=== PATIENT | female | born 1960 | race Caucasian/White ===

== ENCOUNTER → 2021-07-07 | Outpatient (CLI) | payer MEDICAID ==
--- NOTE | 2021-07-07 16:13 | RAD ---
Exam: US LEFT LOWER EXTREMITY ARTERIAL DUPLEX EVAL, US DPLX ARTR EXTREM LOWER BILAT History: Nonhealing ulcer follow-up left foot. Pain. Concern for arterial insufficiency. Comparison: None. Technique: Grayscale, color, and spectral Doppler ultrasound images of the left lower extremity arter ies. Pressures were determined using Doppler technique and ankle brachial indices were calculated. Findings: The left common femoral artery is patent with peak systolic velocity 163 cm/s and monophasic waveform . There is a focal stenosis in the left common femoral artery with peak systolic velocity of 457 cm/s . Distal to the stenosis there is dampened waveform with peak systolic velocity of 295 and 220 cm/s. Patent left deep femoral artery with peak systolic velocity 180 cm/s and dampened monophasic waveform . The left superficial femoral artery demonstrates dampened flow with peak systolic velocity 55 cm/s at the proximal 18 cm/s at the mid and 12 cm/s distally. Somewhat reconstitution of flow at the poplite al artery with 64 cm/s and 85 cm/s peak systolic flow. The posterior tibial, peroneal, anterior tibia l, dorsalis pedis and distal posterior tibial arteries all remain patent. Left brachial pressure: 177 mmHg Left ankle pressure (PT): 103 mmHg; 0.58 ABDI Left ankle pressure (DP): 98 mmHg; 0.55 ABDI Guidelines: ABDI >1.4: Calcified vessel 0.9 - 1.4: Normal 0.7 - 0.89: Mild PAD 0.51 - 0.69: Moderate PAD =< 0.5: Severe PAD Impression: 1. Severe stenosis of the left common femoral artery with peak systolic velocity of 457 cm/s and dim inished flow distally, however patent three-vessel runoff to the foot and ankle. 2. Dampened waveforms proximal to the left common femoral artery stenosis suggests possible addition al more proximal aortic or iliac stenosis. 3. Left ABDI of 0.58 consistent with moderate peripheral artery disease. Electronically signed by: Salvador Joseph MD (07/07/2021 4:11 PM) [id number]
== END ==
LOC: US 15:18
PROVIDERS: ATTEND Anesthesiology Hospice and Palliative Medicine
DX: I70.202 Unspecified atherosclerosis of native arteries of extremities, left leg (principal); E11.621 Type 2 diabetes mellitus with foot ulcer; L97.522 Non-pressure chronic ulcer of other part of left foot with fat layer exposed
CPT/HCPCS: 93922; 93926

== ENCOUNTER 2021-08-19 08:28 | Outpatient (CLI) | payer MEDICAID ==
[~2021-08-19] VITALS: Ht 175.3 cm; Wt 61.4 kg
[2021-08-19] VITALS (12 sets, daily range): BP systolic 150–191; BP diastolic 59–86
[2021-08-19] MEDS ORDERED: HEPARIN for ARTERIAL LINE 1,500 ML ONE (09:32)
[2021-08-19] MEDS ORDERED: LIDOCAINE 1% Multi-Dose 20 ML VIAL. ONE (09:32)
[2021-08-19] MEDS ORDERED: PANT40TA77 PO (10:06)
[2021-08-19] MEDS ORDERED: METF-658 PO (10:06)
[2021-08-19] MEDS ORDERED: SITA100T PO (10:06)
[2021-08-19] MEDS ORDERED: AMLO-187 PO (10:06)
[2021-08-19] MEDS ORDERED: GABA300C18 PO (10:06)
[2021-08-19] MEDS ORDERED: IODIXANOL 320 200 ML in NS 200 ML IART ONE (10:15)
[2021-08-19] MEDS ORDERED: LISI-130 PO (10:15)
[2021-08-19] MEDS ORDERED: TRAZ-118 PO (10:15)
[2021-08-19] MEDS ORDERED: DULO30CA2 PO (10:15)
[2021-08-19] MEDS ORDERED: CLOP75TA PO (10:15)
[2021-08-19] MEDS ORDERED: LIDOCAINE 1% PF 2 ML VIAL. ONE (10:23)
[2021-08-19] MEDS ORDERED: MIDAZOLAM HCL/PF 2 MG/2 ML VIAL. ONE (10:24)
[2021-08-19 10:25] LABS: CALCIUM 9.4 mg/dL (8.5-10.1); CREATININE 1.4 mg/dL (0.6-1.0); GFR 38.4; POTASSIUM 4.4 mmol/L (3.5-5.1)
[2021-08-19] MEDS ORDERED: VERAPAMIL 5 MG/2 ML VIAL. ONE (10:25)
[2021-08-19] MEDS ORDERED: NITROGLYCERIN 200 MCG/2 ML SYRINGE FOR CATH/VASC LAB. ONE (10:25)
[2021-08-19] MEDS ORDERED: HEPARIN for IV BOLUS 10,000 UNIT/10 ML VIAL. ONE (10:25)
[2021-08-19] MEDS ORDERED: fentaNYL PF VIAL 100 MCG/2 ML VIAL ONE (10:25)
[2021-08-19 10:26] LABS: HEMATOCRIT 37.7 % (36.0-47.0); HEMOGLOBIN 12.7 g/dL (12.0-15.5); RED BLOOD COUNT 4.34 x10^6/uL (3.50-5.40); RED CELL DISTRIBUTION WIDTH 15.3 % (11.5-14.5); WHITE BLOOD COUNT 9.1 x10^3/uL (4.0-11.0)
[2021-08-19] MEDS ORDERED: LIDOCAINE 1% PF 2 ML VIAL. INJ ONE (10:45)
[2021-08-19] MEDS ORDERED: IODIXANOL 320 MG/ML 100 ML VIAL. IART ONE (10:45)
[2021-08-19] MEDS ORDERED: VERAPAMIL 5 MG/2 ML VIAL. IART ONE (10:45)
[2021-08-19] MEDS ORDERED: fentaNYL PF VIAL 100 MCG/2 ML VIAL IV ONE (10:45)
[2021-08-19] MEDS ORDERED: NITROGLYCERIN 200 MCG/2 ML SYRINGE FOR CATH/VASC LAB. IART ONE (10:45)
[2021-08-19] MEDS ORDERED: HEPARIN for IV BOLUS 10,000 UNIT/10 ML VIAL. IART ONE (10:45)
[2021-08-19] MEDS ORDERED: MIDAZOLAM HCL/PF 2 MG/2 ML VIAL. IV ONE (10:45)
[2021-08-19 10:55] LABS: PROTHROMBIN TIME PATIENT 12.7 SEC (11.7-14.0)
[2021-08-19] MEDS ORDERED: CONTRAST GIVEN. MC PRN (11:00)
--- NOTE | 2021-08-19 13:45 | NUR ---
RIGHT RADIAL SITE WITHOUT BLEEDING OR HEMATOMA, ARM BOARD AND DRESSING REMOVED AND CHANGED, ARM BOARD REAPPLIED. PT TOLERATED WELL, NO COMPLICATIONS. VSS. DISCHARGE INSTRUCTIONS REVIEWED WITH PATIENT AND HER DAUGHTER, MOHAN.
--- NOTE | 2021-08-19 13:50 | CARD ---
MR#: [id number] Date of Study: 08/19/2021 Ordering Physician: BRIAN DOBSON, Referring Physician: BRIAN DOBSON, Tech: FRANKY MCKEON APPROVED REPORT Patient StatusCLI Business Systems Developer: FRANKY MCKEON Procedure(s) performed: MODERATE SEDATION TIME:37 MINUTES FLUORO TIME: 4.9 MIN DOSE: 33.1 GYCM2 CONTRAST: 70CC VISI Aortogram with bilateral femoral runoff HISTORY hypertension: dyslipidemia. INDICATION FOR PROCEDURE The indication(s) include : Left toe wound and elevated velocities on duplex ultrasound. PROCEDURE NARRATIVE Clinical information: 61-year-old woman who presents to the hospital for planned outpatient aortogram in the setting of a n onhealing left toe wound. She was referred to us from the wound care center. Patient has a prior hi story of right below-knee amputation. Procedure details: After appropriate informed consent the right wrist was prepped and draped in usual sterile fashion. Under 1% lidocaine local anesthesia a 6 [place] sheath was placed in the right radial artery. Next, a 5 [place] pigtail catheter was advanced to the mid abdominal aorta and diagnostic angiography was the n performed. Subsequently, a multipurpose catheter was advanced into the bilateral iliac vessels and bilateral lower extremity runoff was performed. At case completion, the catheters and sheaths were removed and hemostasis was achieved via a triple radial band. No acute complications. Findings: Aorta: Normal caliber vessel with moderate adventitial calcification and mild diffuse irregularities of up to 20% Bilateral renal arteries are patent. There is greater than 50% stenosis involving the left renal art manolo. Left common iliac artery has mild diffuse irregularities of up to 30% Left external iliac artery has a proximal 40% stenosis Left internal iliac artery has moderate diffuse disease Left common femoral artery has a 80% mid to distal stenosis Left SFA is proximally occluded Left profunda is widely patent and provides robust collaterals to the popliteal artery Left popliteal artery is patent without significant disease Left anterior tibial artery is occluded Left posterior tibial and peroneal vessels are patent and provide the dominant circulation to the josué t. The left dorsalis pedis artery is reconstituted via distal peroneal collaterals. Right common iliac artery has proximal 50% stenosis Right external iliac artery is occluded proximally Right internal iliac artery provides collaterals to the distal foot. There is diffuse disease involv ing the common femoral artery, superficial femoral artery and popliteal vessels. Conclusion 1. Severe bilateral lower extremity arterial disease 2. 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 Severe diffuse disease involving the left common femoral artery and SFA with distal reconstitutio n and two-vessel runoff below the knee Recommendations 1. Patient has prior right SFA endovascular treatment with stents which appear to be occluded, given long segment left SFA stenosis with common femoral artery involvement would consider vascular surger y evaluation. If she is deemed to be too high risk for surgical intervention could then plan for rad ial peripheral intervention with angioplasty and recanalization of the [employer]IDE [employer]INEER and SFA via dual radial an d pedal approaches. Signed by : Brian Dobson, Electronically Approved : 08/19/2021 13:50:24
--- NOTE | 2021-08-19 14:00 | NUR ---
RN AND PATIENT'S DAUGHTER, MOHAN, ASSISTED PATIENT WITH HER CLOTHING AND PUTTING HER RIGHT PROSTHESIS BACK ON. PT NEEDED FREQUENT REMINDERS TO NOT USE HER RIGHT ARM. PT ASSISTED TO THE BATHROOM, PT NEEDED TO SELF CATH HERSELF PRIOR TO DISCHARGE. PT'S DAUGHTER EXPRESSED CONCERN OF PT NEEDING ASSISTANCE TONIGHT, AT HOME AND ASKED IF SHE COULD BE ADMITTED FOR OBSERVATION, DUE TO THE PATIENT LIVING ALONE. DR. DOBSON NOTIFIED. PT'S DAUGHTER AGREED FOR THE PATIENT TO STAY WITH HER THIS EVENING FOR CLOSE OBSERVATION AND ASSISTANCE. ALL DISCHARGE INFORMATION REVIEWED AND QUESTIONS ANSWERED, EDUCATION MATERIAL PROVIDED ON MODERATE SEDATION AND RADIAL SITE CARE. PT DISCHARGED VIA WHEELCHAIR TO OUTPATIENT, WHERE HER DAUGHTER MOHAN PICKED HER UP IN HER PRIVATE VEHICLE.
== END 2021-08-19 15:00 | disposition home or self-care (01) ==
LOC: CCL 08:28
PROVIDERS: ATTEND Internal Medicine Cardiovascular Disease
DX: I73.9 Peripheral vascular disease, unspecified (principal); I10 Essential (primary) hypertension; K21.9 Gastro-esophageal reflux disease without esophagitis; M19.90 Unspecified osteoarthritis, unspecified site; E11.9 Type 2 diabetes mellitus without complications; F32.9 Major depressive disorder, single episode, unspecified; Z90.49 Acquired absence of other specified parts of digestive tract; Z98.890 Other specified postprocedural states; Z79.82 Long term (current) use of aspirin; Z79.899 Other long term (current) drug therapy; Z91.041 Radiographic dye allergy status
CPT/HCPCS: 36245; 36246; 36415; 75625; 75716; 76937; 80048; 85027; 85610; 99152; 99153; C1769; C1887; C1894; J1644; J2250; J3010; J3490; J7050; Q9967; J7030

== ENCOUNTER → 2021-08-27 | Outpatient (CLI) | payer MEDICAID ==
[2021-08-19 13:40] VITALS: BP 154/76
[~2021-08-27] MED LIST: AMLO-187 PO; CLOP75TA PO; DULO30CA2 PO; GABA300C18 PO; LISI-130 PO; METF-658 PO; PANT40TA77 PO; SITA100T PO; TRAZ-118 PO
== END ==
LOC: LAB 10:22
PROVIDERS: ATTEND Pediatrics
DX: Z01.812 Encounter for preprocedural laboratory examination (principal); Z20.822 Contact with and (suspected) exposure to COVID-19
CPT/HCPCS: U0003

== ENCOUNTER 2021-08-31 09:17 | Inpatient (IN) | payer MEDICAID ==
[~2021-08-31] VITALS: Ht 175.3 cm; Wt 58.6 kg
[~2021-08-31 09:17] MED LIST changes: +HEPARIN SODIUM 5,000 UNIT in IV NORMAL SALINE 500ML BAG 500 ML IRR ONE; +HYDROmorphone 2 MG/ML INJ. IVP PRN; +IV RINGERS,LACTATED 1000ML 1,000 ML IV SCH; +MORPHINE SULFATE 2 MG/ML INJ. IVP PRN; +PROCHLORPERAZINE 10 MG/2 ML VIAL. IVP PRN; +fentaNYL PF VIAL 100 MCG/2 ML VIAL IVP PRN
[2021-08-31] MEDS ORDERED: INSULIN LISPRO 100 UNIT/ML 3ML VIAL for OP,RR ONLY. SQ PRN (09:30)
[2021-08-31 09:54] VITALS: BP 124/63
[2021-08-31 10:08] LABS: BASO # 0.1 x10^3/uL (0.0-0.2); BASO % 1 % (0-3); EOS % 1 % (0-3); HEMATOCRIT 32.4 % (36.0-47.0); HEMOGLOBIN 10.7 g/dL (12.0-15.5); LYMPH # 1.4 x10^3/uL (1.0-4.8); LYMPH % 15 % (24-48); MEAN CORPUSCULAR HEMOGLOBIN 28 pg (25-35); MEAN CORPUSCULAR HGB CONC 33 g/dL (31-37); MEAN CORPUSCULAR VOLUME 86 fL (79-100); MONO # 0.6 x10^3/uL (0.0-1.1); MONO % 7 % (0-9); NEUT # 7.3 x10^3/uL (1.8-7.7); NEUT % 77 % (31-73); PLATELET COUNT 421 x10^3/uL (140-400); RED BLOOD COUNT 3.76 x10^6/uL (3.50-5.40); RED CELL DISTRIBUTION WIDTH 15.2 % (11.5-14.5); WHITE BLOOD COUNT 9.5 x10^3/uL (4.0-11.0)
[2021-08-31] MEDS ORDERED: fentaNYL PF VIAL 100 MCG/2 ML VIAL ONE (10:22)
[2021-08-31] MEDS ORDERED: DEXAMETHASONE SOD PHOS 4 MG/ML VIAL ONE (10:22)
[2021-08-31] MEDS ORDERED: ROCURONIUM 100 MG/10 ML VIAL. ONE (10:22)
[2021-08-31] MEDS ORDERED: PROPOFOL 10 MG/ML (20ML) VIAL. IV ONE (10:22)
[2021-08-31] MEDS ORDERED: GLYCOPYRROLATE 1 MG/5 ML VIAL. ONE (10:22)
[2021-08-31] MEDS ORDERED: ONDANSETRON PF 4 MG/2 ML VIAL. ONE (10:22)
[2021-08-31 10:25] LABS: CALCIUM 8.9 mg/dL (8.5-10.1); CREATININE 1.6 mg/dL (0.6-1.0); GFR 32.9; POTASSIUM 3.5 mmol/L (3.5-5.1)
[2021-08-31] MEDS ORDERED: LIDOCAINE 2% PF 5 ML VIAL. ONE (10:26)
[2021-08-31] MEDS ORDERED: MIDAZOLAM HCL/PF 2 MG/2 ML VIAL. ONE (10:46)
[2021-08-31] MEDS ORDERED: IOHEXOL 300 MG/ML 50 ML VIAL. ONE (10:49)
[2021-08-31] MEDS ORDERED: THROMBIN TOPICAL 5,000 UNIT VIAL. ONE (10:49)
[2021-08-31] MEDS ORDERED: SURGICEL FIBRILLAR 1X2 EACH. ONE (10:49)
[2021-08-31] MEDS ORDERED: GELATIN SPONGE SIZE 12-7MM SPONGE. ONE (10:49)
[2021-08-31] MEDS ORDERED: THROMBIN TOPICAL 20,000 UNIT SPRAY.SYRN KIT TP ONE (10:50)
[2021-08-31] MEDS ORDERED: PAPAVERINE 60 MG/2 ML VIAL. ONE (10:50)
[2021-08-31 10:51] LABS: PROTHROMBIN TIME PATIENT 13.8 SEC (11.7-14.0)
[2021-08-31] MEDS ORDERED: SUGAMMADEX SODIUM 200 MG/2 ML VIAL. IVP ONE (11:00)
[2021-08-31] MEDS ORDERED: PHENYLEPHRINE in 0.9% NACL PF 1 MG/10 ML SYRINGE. IV ONE (11:46)
[2021-08-31] MEDS ORDERED: HYDROmorphone 2 MG/ML INJ. ONE (13:02)
[2021-08-31] MEDS ORDERED: WATER FOR INJECTION,STERILE 10 ML IJ ONE (13:04)
[2021-08-31] MEDS ORDERED: PROTAMINE 50 MG/5 ML VIAL. IV ONE (15:06)
[2021-08-31] MEDS ORDERED: MORPHINE SULFATE 2 MG/ML INJ. IV PRN (16:15)
[2021-08-31] MEDS ORDERED: diphenhydrAMINE HCL 25 MG CAPSULE PO PRN (16:15)
[2021-08-31] MEDS ORDERED: oxyCODONE/APAP 5/325 1 TAB TABLET PO PRN ×2 (16:15→17:45)
[2021-08-31] MEDS ORDERED: ACETAMINOPHEN 325 MG TABLET. PO PRN (16:15)
[2021-08-31] MEDS ORDERED: 0.9 % SODIUM CHLORIDE 10 ML DISP.SYRIN. IV PRN (16:15)
[2021-08-31] MEDS ORDERED: NALOXONE 0.4 MG/ML VIAL. IV PRN (16:15)
[2021-08-31] MEDS ORDERED: PIP/TAZO PER PHARMACY MC PRN (16:15)
[2021-08-31] MEDS ORDERED: HYDROcodone/APAP 5/325MG 1 TAB TABLET PO PRN ×3 (16:15→17:45)
[2021-08-31] MEDS ORDERED: ONDANSETRON PF 4 MG/2 ML VIAL. IVP PRN (16:15)
[2021-08-31] MEDS ORDERED: IV NORMAL SALINE 1000ML BAG 1,000 ML IV SCH (16:15)
--- NOTE | 2021-08-31 16:40 | PDOC4 ---
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 Left common femoral artery endarterectomy 2. Left common femoral artery to tibioperoneal artery bypass using great saphenous vein in the non-reversed fashion 3. Left leg great saphenous vein harvest 4. Left first toe open ray amputation including resection of the metatarsal head Surgeon: Merle Diallo MD Tire Mold Engraver: Carmen TILLEY Anesthesia Type: general anesthesia Blood Loss: 200ml Specimans Obtained: right 1st toe and cultures Findings: right first toe open wound with wet gangrene and purulent drainage Complications: none Operative Note: The patient was brought to the operating room placed on table in a supine posi tion. She received general anesthesia and monitored throughout the case by the anesthesiologist. I used ultrasound and marked her left great saphenous vein. The left lower abdomen, left groin and left leg and foot circumferentially were prepped and draped in normal sterile fashion. We put the left foot in a wrap to keep the toe which was infected out of the keen. I made initially in a longitudinal incision to the left groin and, dissected down to the subcutaneous tissue down to the femoral vessels. The common femoral artery, superficial femoral artery and profunda artery were dissected out. The common femoral artery was severely calcified I dissected out proximally under the inguinal ligament to the distal external iliac artery where it was soft and had a strong palpable pulse within it. All side branches were looped with Vesseloops along with the proximal distal vessels. The profunda artery was very soft. I then dissected out the great saphenous vein in the medial groin and followed it proximally up to the saphenofemoral junction. I made a long incision down the medial thigh and medial calf dissecting out the great saphenous vein along the length of the leg. All side branches were ligated with silk ties clips and divided. In the medial calf we dissected down to the popliteal space. The popliteal artery was dissected out but it was heavily calcified in the distal segment and felt occluded if not nearly occluded. I continued dissection distally down to the tibial peroneal trunk and anterior tibial artery. The tibial peroneal trunk was heavily calcified in the proximal segment but distally it was very soft and the posterior tibial and peroneal arteries were dissected out and were soft in the proximal segment. His main runoff on his angiogram was the posterior tibial and peroneal vessels. I felt it best to do her bypass to the distal tibial peroneal trunk. We heparinized the patient with 6000 units of heparin. The proximal great saphenous vein just distal to the junction was clamped and divided distally I ligated with silk ties and clips and divided it. The proximal great saphenous vein stump was oversewn with 2 layers of 5-0 Prolene. The great saphenous vein was removed. I irrigated it with heparinized saline and it dilated nicely throughout the length of the vein. We ensured all side branches were ligated well with silk ties and clips. I then used the valvulotome and I lysed the valves throughout the length of the vein so we could use it in a nonreverse fashion. We then clamped the distal external iliac artery, profunda artery and superficial femoral artery. I performed a longitudinal arteriotomy in the distal common femoral artery just at the bifurcation. There was copious amounts of plaque within the common femoral artery. I performed an endarterectomy of the common femoral artery all the way up to the distal external iliac artery past the clamp removing dense cords of plaque. After doing this the artery was soft and had pulsatile inflow through the proximal vessel. I then transected the plaque in the superficial femoral artery which was chronically occluded and there was no backbleeding. I then removed plaque from the origin of the profunda artery distal to this it was widely patent with brisk backbleeding. I irrigated open wound with copious amounts of heparinized saline. The proximal end of the great saphenous vein was spatulated. I performed a end-to-side anastomosis with running 6-0 Prolene suture. After finishing the anastomosis I restored blood flow to the vein there was pulsatile blood flow through the end of the vein conduit. I explored the vein and again all side branches high and sure were well ligated and there is no bleeding. We used a Celia tunneler and tunneled through the deep subcutaneous tissue down to the calf. I then clamped the proximal and distal tibial peroneal trunk with bulldogs. I made a longitudinal arteriotomy in the anterior wall. I cut the vein to length and spatulated it. We performed an end-to-side anastomosis with running 7-0 Prolene suture. After finishing the anastomosis restored blood flow. There were strong dopplerable flow in the distal posterior tibial and peroneal vessels which was graft dependent and strong dopplerable flow at the foot. I then irrigated all of the open wounds with copious amounts of antibiotic irrigation. Hemostasis was gained throughout the wound and at the anastomosis. We placed fibular over the anastomosis in the groin and down in the calf. We then closed the deep subcutaneous tissue level with running 2-0 Vicryl suture in all incisions and closed the superficial subcutaneous tissue level with running 2-0 Vicryl suture. We closed the skin with running 4-0 Vicryl subcuticular suture. Sterile strips were placed along the length of the incision. And sterile dressings. I then moved to the left first toe. On the medial aspect of the first metatarsal head there was a large open wound with purulent drainage. The drainage was sent for culture. I performed elliptical incision around the first toe extending it laterally to encompass the open wound. I dissected down through subtendinous tissue, muscle and tendon down to the distal metatarsal bone. I transected the bone and remove the toe. The metatarsal head was completely excised I brought the metatarsal bone back within the wound with a rongeur back to good healthy bone. There was purulent drainage from the wound initially but I got back to good healthy tissue. There was good bleeding throughout the wound bed which was controlled with electrocautery. All tendons were removed. I did not close the wound because of the purulent drainage. I did irrigate with copious amounts of Irrisept irrigation followed by saline irrigation. When the wound was dry I packed it with antibiotic soaked gauze covered with an ABD pad and wrapped with a Kerlix and an Sylvester bandage. She tolerated the surgery with no immediate complications. Carmen TILLEY was scrubbed throughout the entire length of the case. MRELE DIALLO MD Aug 31, 2021 16:40
[2021-08-31] MEDS: IV NORMAL SALINE 1000ML BAG 1,000 ML IV SCH (17:05)
--- NOTE | 2021-08-31 17:44 | PDOC1 ---
History and Physical Date of Admission Date of Admission DATE: 08/31/21 TIME: 17:29 Identification/Chief Complaint Chief Complaint S/P left femoral endarterectomy Source Source: Chart review, Patient History of Present Illness History of Present Illness Patient 61-year-old female with past medical history of peripheral vascular disease, who is a vascular surgery patient of Dr. Diallo. She is status post left common femoral artery endarterectomy, left common femoral artery to tibial peroneal artery bypass using greater saphenous vein, left leg great saphenous vein harvest, and left first toe open ray amputation including resection of the metatarsal head. In the PACU she is still somewhat delirious and much history was obtained through chart review. We have been asked to admit the patient for further medical management. Past Medical History Past Medical History DM2, GERD, PVD Past Surgical History Past Surgical History Right BKA Family History Family History: Diabetes Social History Smoke: Quit ALCOHOL: none Drugs: None Current Medications Current Medications Current Medications Fentanyl Citrate (Fentanyl 2ml Vial) 25 mcg PRN Q5MIN PRN IVP MILD PAIN 1-3; Start 08/31/21 at 06:00; Stop 09/01/21 at 05:59 Fentanyl Citrate (Fentanyl 2ml Vial) 50 mcg PRN Q5MIN PRN IVP MODERATE PAIN 4- 6; Start 08/31/21 at 06:00; Stop 09/01/21 at 05:59 Morphine Sulfate (Morphine Sulfate) 1 mg PRN Q10MIN PRN IVP SEVERE PAIN 7-10; Start 08/31/21 at 06:00; Stop 09/01/21 at 05:59 Ringer's Solution 1,000 ml @ 30 mls/hr Q24H IV Last administered on 08/31/21at 10:05; Start 08/31/21 at 06:00; Stop 08/31/21 at 17:59 Hydromorphone HCl (Dilaudid) 0.5 mg PRN Q10MIN PRN IVP SEVERE PAIN 7-10, 2nd CHOICE; Start 08/31/21 at 06:00; Stop 09/01/21 at 05:59 Prochlorperazine Edisylate (Compazine) 5 mg PACU PRN PRN IVP NAUSEA, MRX1; Start 08/31/21 at 06:00; Stop 09/01/21 at 05:59 Heparin Sodium (Porcine) 5000 unit/Sodium Chloride 505 ml @ 505 mls/hr 1X ONCE IRR Last administered on 08/31/21at 12:09; Start 08/31/21 at 06:00; Stop 08/31/21 at 06:59; Status DC Cefazolin Sodium 1 gm/Sodium Chloride 500 ml @ 500 mls/hr 1X ONCE IRR Last administered on 08/31/21at 12:09; Start 08/31/21 at 06:00; Stop 08/31/21 at 06:59; Status DC Cefazolin Sodium/ Dextrose 50 ml @ 100 mls/hr 1X PREOP PRN IV PRIOR TO PROCEDURE; Start 08/31/21 at 06:00; Stop 08/31/21 at 18:00 Insulin Human Lispro (HumaLOG VIAL for OP,RR ONLY) 0-10 units PRN Q1HR PRN SQ P ER PROTOCOL Last administered on 08/31/21at 16:48; Start 08/31/21 at 09:30; Stop 09/01/21 at 09:29 Rocuronium Becker (Zemuron) 100 mg STK-MED ONCE .ROUTE ; Start 08/31/21 at 10:22; Stop 08/31/21 at 10:22; Status DC Fentanyl Citrate (Fentanyl 2ml Vial) 100 mcg STK-MED ONCE .ROUTE ; Start 08/31/21 at 10:22; Stop 08/31/21 at 10:22; Status DC Glycopyrrolate (Robinul) 1 mg STK-MED ONCE .ROUTE ; Start 08/31/21 at 10:22; Stop 08/31/21 at 10:22; Status DC Propofol (Diprivan) 200 mg STK-MED ONCE IV ; Start 08/31/21 at 10:22; Stop 08/31/21 at 10:22; Status DC Ondansetron HCl (Zofran) 4 mg STK-MED ONCE .ROUTE ; Start 08/31/21 at 10:22; St op 08/31/21 at 10:22; Status DC Dexamethasone Sodium Phosphate (Decadron) 4 mg STK-MED ONCE .ROUTE ; Start 08/31/21 at 10:22; Stop 08/31/21 at 10:22; Status DC Lidocaine HCl (Lidocaine Pf 2% Vial) 5 ml STK-MED ONCE .ROUTE ; Start 08/31/21 at 10:26; Stop 08/31/21 at 10:26; Status DC Midazolam HCl (Versed) 2 mg STK-MED ONCE .ROUTE ; Start 08/31/21 at 10:46; Stop 08/31/21 at 10:46; Status DC Sugammadex Sodium (Bridion) 200 mg 1X ONCE IVP ; Start 08/31/21 at 11:00; Stop 08/31/21 at 11:01; Status DC Gelatin (Gelfoam Size 12-7mm) 1 each STK-MED ONCE .ROUTE ; Start 08/31/21 at 10:49; Stop 08/31/21 at 10:49; Status DC Cellulose (Surgicel Fibrillar 1x2) 1 each STK-MED ONCE .ROUTE Last administered on 08/31/21at 14:19; Start 08/31/21 at 10:49; Stop 08/31/21 at 10:49; Status DC Iohexol (Omnipaque 300 Mg/ml) 50 ml STK-MED ONCE .ROUTE ; Start 08/31/21 at 10:49; Stop 08/31/21 at 10:50; Status DC Thrombin (Thrombin Topical) 5,000 unit STK-MED ONCE .ROUTE ; Start 08/31/21 at 10:49; Stop 08/31/21 at 10:50; Status DC Papaverine HCl 60 mg STK-MED ONCE .ROUTE ; Start 08/31/21 at 10:50; Stop 08/31/21 at 10:50; Status DC Thrombin 20,000 unit STK-MED ONCE TP ; Start 08/31/21 at 10:50; Stop 08/31/21 at 10:50; Status DC Phenylephrine HCl (PHENYLEPHRINE in 0.9% NACL PF) 1 mg STK-MED ONCE IV ; Start 08/31/21 at 11:46; Stop 08/31/21 at 11:47; Status DC Hydromorphone HCl (Dilaudid) 2 mg STK-MED ONCE .ROUTE ; Start 08/31/21 at 13:02; Stop 08/31/21 at 13:03; Status DC Sterile Water 10 ml @ As Directed STK-MED ONCE IJ ; Start 08/31/21 at 13:04; Stop 08/31/21 at 13:04; Status DC Protamine Sulfate (Protamine) 50 mg STK-MED ONCE IV ; Start 08/31/21 at 15:06; Stop 08/31/21 at 15:06; Status DC Diphenhydramine HCl (Benadryl) 25 mg PRN Q6HRS PRN PO ITCHING; Start 08/31/21 at 16:15 Info (Non-Icu Electrolyte Protocol) 1 ea DAILY MC ; Start 09/01/21 at 09:00 Sodium Chloride (Normal Saline Flush) 3 ml QSHIFT PRN IV AFTER MEDS AND BLOOD DRAWS; Start 08/31/21 at 16:15 Sodium Chloride 1,000 ml @ 75 mls/hr [id number] IV Last administered on 08/31/21at 17:05; Start 08/31/21 at 16:15 Acetaminophen/ Hydrocodone Bitart (Lortab 5/325) 1 tab PRN Q4HRS PRN PO MILD PAIN 1-3; Start 08/31/21 at 16:15 Acetaminophen/ Hydrocodone Bitart (Lortab 5/325) 2 tab PRN Q4HRS PRN PO MODERATE PAIN, SEVERE PAIN; Start 08/31/21 at 16:15 Oxycodone/ Acetaminophen (Percocet 5/325) 1 tab PRN Q4HRS PRN PO MILD PAIN, 2ND CHOICE; Start 08/31/21 at 16:15 Acetaminophen (Tylenol) 650 mg PRN Q6HRS PRN PO Headaches, Temp > 101.5F; Start 08/31/21 at 16:15 Morphine Sulfate (Morphine Sulfate) 2 mg PRN Q2HR PRN IV PAIN; Start 08/31/21 at 16:15 Naloxone HCl (Narcan) 0.4 mg PRN Q2MIN PRN IV SEE INSTRUCTIONS; Start 08/31/21 at 16:15 Sodium Chloride 1,000 ml @ 25 mls/hr Q24H IV ; Start 08/31/21 at 16:15 Docusate Sodium (Colace) 100 mg BID PO ; Start 08/31/21 at 21:00 Ondansetron HCl (Zofran) 4 mg PRN Q6HRS PRN IVP NAUESA, 1ST CHOICE; Start 08/31/21 at 16:15 Vancomycin HCl (Vanco Per Pharmacy) 1 each PRN DAILY PRN MC SEE COMMENTS; Start 08/31/21 at 16:15; Status UNV Piperacillin Sod/ Tazobactam Sod (Zosyn Per Pharmacy) 1 each PRN DAILY PRN MC SEE COMMENTS; Start 08/31/21 at 16:15; Status UNV Amlodipine Besylate (Norvasc) 10 mg DAILY PO ; Start 09/01/21 at 09:00 Clopidogrel Bisulfate (Plavix) 75 mg DAILY PO ; Start 09/01/21 at 09:00 Duloxetine HCl (Cymbalta) 30 mg DAILY PO ; Start 09/01/21 at 09:00 Gabapentin (Neurontin) 300 mg TID PO ; Start 08/31/21 at 21:00 Lisinopril (Prinivil) 40 mg DAILY PO ; Start 09/01/21 at 09:00 Pantoprazole Sodium (Protonix) 40 mg DAILYAC PO ; Start 09/01/21 at 07:30 Trazodone HCl (Desyrel) 50 mg HS PO ; Start 08/31/21 at 21:00 Linagliptin (Tradjenta) 5 mg DAILY PO ; Start 09/01/21 at 09:00 Active Scripts Active Reported Clopidogrel (Clopidogrel Bisulfate) 75 Mg Tablet 75 Mg PO DAILY Trazodone Hcl 50 Mg Tablet 50 Mg PO HS Cymbalta (Duloxetine Hcl) 30 Mg Capsule.dr 30 Mg PO DAILY Lisinopril 40 Mg Tablet 1 Tab PO DAILY Amlodipine Besylate 10 Mg Tablet 10 Mg PO DAILY Januvia (Sitagliptin Phosphate) 100 Mg Tablet 1 Tab PO DAILY Protonix (Pantoprazole Sodium) 40 Mg Tablet.dr 40 Mg PO DAILYAC Gabapentin (Gabapentin) 300 Mg Capsule 300 Mg PO TID Metformin Hcl Er (Metformin Hcl) 500 Mg Tab.er.24h 500 Mg PO DAILYWBKFT Allergies Allergies: Coded Allergies: iodine (Verified Allergy, Intermediate, Rash, 08/31/21) topical iodine ROS Review of System Unable to obtain due to patient clinical condition Physical Exam Physical Exam General: Alert, Oriented X1, Cooperative, No acute distress HEENT: PERRLA, EOMI Lungs: Clear to auscultation, Normal air movement Heart: RRR, no murmurs Cardiovascular: S1, S2 Abdomen: Normal bowel sounds, Soft, No tenderness Extremities: Right BKA. No clubbing, No cyanosis Skin: No rashes, No significant lesion Neuro: Normal speech, Normal tone, Sensation intact Psych/Mental Status: Mental status NL, Mood NL Vitals Vitals Vital Signs Date Time Temp Pulse Resp B/P (MAP) Pulse Ox O2 Delivery O2 Flow Rate FiO2 08/31/21 17:04 80 16 151/62 100 Room Air 08/31/21 16:49 10.0 08/31/21 16:21 97.9 97.9 Labs Labs Laboratory Tests Test 08/31/21 09:15 08/31/21 09:52 08/31/21 10:00 08/31/21 16:26 POC SARS CoV-2 Antigen Negative (NEGATIVE) White Blood Count 9.5 x10^3/uL (4.0-11.0) Red Blood Count 3.76 x10^6/uL (3.50-5.40) Hemoglobin 10.7 g/dL (12.0-15.5) Hematocrit 32.4 % (36.0-47.0) Mean Corpuscular Volume 86 fL (79-100) Mean Corpuscular Hemoglobin 28 pg (25-35) Mean Corpuscular Hemoglobin Concent 33 g/dL (31-37) Red Cell Distribution Width 15.2 % (11.5-14.5) Platelet Count 421 x10^3/uL (140-400) Neutrophils (%) (Auto) 77 % (31-73) Lymphocytes (%) (Auto) 15 % (24-48) Monocytes (%) (Auto) 7 % (0-9) Eosinophils (%) (Auto) 1 % (0-3) Basophils (%) (Auto) 1 % (0-3) Neutrophils # (Auto) 7.3 x10^3/uL (1.8-7.7) Lymphocytes # (Auto) 1.4 x10^3/uL (1.0-4.8) Monocytes # (Auto) 0.6 x10^3/uL (0.0-1.1) Eosinophils # (Auto) 0.0 x10^3/uL (0.0-0.7) Basophils # (Auto) 0.1 x10^3/uL (0.0-0.2) Sodium Level 140 mmol/L (136-145) Potassium Level 3.5 mmol/L (3.5-5.1) Chloride Level 103 mmol/L (98-107) Carbon Dioxide Level 28 mmol/L (21-32) Anion Gap 9 (6-14) Blood Urea Nitrogen 20 mg/dL (7-20) Creatinine 1.6 mg/dL (0.6-1.0) Estimated GFR (Cockcroft-Gault) 32.9 Glucose Level 188 mg/dL (70-99) Calcium Level 8.9 mg/dL (8.5-10.1) Prothrombin Time 13.8 SEC (11.7-14.0) Prothromb Time International Ratio 1.1 (0.8-1.1) Activated Partial Thromboplast Time 38 SEC (24-38) Glucose (Fingerstick) 187 mg/dL (70-99) 182 mg/dL (70-99) Laboratory Tests Test 08/31/21 09:15 08/31/21 09:52 08/31/21 10:00 08/31/21 16:26 POC SARS CoV-2 Antigen Negative (NEGATIVE) White Blood Count 9.5 x10^3/uL (4.0-11.0) Red Blood Count 3.76 x10^6/uL (3.50-5.40) Hemoglobin 10.7 g/dL (12.0-15.5) Hematocrit 32.4 % (36.0-47.0) Mean Corpuscular Volume 86 fL (79-100) Mean Corpuscular Hemoglobin 28 pg (25-35) Mean Corpuscular Hemoglobin Concent 33 g/dL (31-37) Red Cell Distribution Width 15.2 % (11.5-14.5) Platelet Count 421 x10^3/uL (140-400) Neutrophils (%) (Auto) 77 % (31-73) Lymphocytes (%) (Auto) 15 % (24-48) Monocytes (%) (Auto) 7 % (0-9) Eosinophils (%) (Auto) 1 % (0-3) Basophils (%) (Auto) 1 % (0-3) Neutrophils # (Auto) 7.3 x10^3/uL (1.8-7.7) Lymphocytes # (Auto) 1.4 x10^3/uL (1.0-4.8) Monocytes # (Auto) 0.6 x10^3/uL (0.0-1.1) Eosinophils # (Auto) 0.0 x10^3/uL (0.0-0.7) Basophils # (Auto) 0.1 x10^3/uL (0.0-0.2) Sodium Level 140 mmol/L (136-145) Potassium Level 3.5 mmol/L (3.5-5.1) Chloride Level 103 mmol/L (98-107) Carbon Dioxide Level 28 mmol/L (21-32) Anion Gap 9 (6-14) Blood Urea Nitrogen 20 mg/dL (7-20) Creatinine 1.6 mg/dL (0.6-1.0) Estimated GFR (Cockcroft-Gault) 32.9 Glucose Level 188 mg/dL (70-99) Calcium Level 8.9 mg/dL (8.5-10.1) Prothrombin Time 13.8 SEC (11.7-14.0) Prothromb Time International Ratio 1.1 (0.8-1.1) Activated Partial Thromboplast Time 38 SEC (24-38) Glucose (Fingerstick) 187 mg/dL (70-99) 182 mg/dL (70-99) VTE Prophylaxis Ordered VTE Prophylaxis Devices: No VTE Pharmacological Prophylaxi: Yes Assessment/Plan Assessment/Plan S/P femoral endarterectomy S/P left common femoral artery to tibial peroneal artery bypass using greater saphenous vein S/P left leg great saphenous vein harvest S/P left first toe open ray amputation including resection of the metatarsal head PVD DM2 GERD Plan: Vascular surgery following Will provide adequate pain management Basal insulin with medium dose sliding scale PT/OT Resume home medications FEN - ADA diet PPX - Heparin FULL CODE/surrogate decision-maker is her daughter (Evie Mckinley) Dispo - inpatient for above Justifications for Admission Other Justification STEFANI MIGUEL MD Aug 31, 2021 17:44
[2021-08-31] MEDS ORDERED: DEXTROSE 50% 25 GM / 50ML DISP.SYRIN. IV PRN (17:45)
[2021-08-31] MEDS ORDERED: MAG HYDROX/ALUMINUM HYD/SIMETH 30 ML ORAL.SUSP PO PRN (17:45)
[2021-08-31] MEDS ORDERED: IV DEXTROSE 5% 250 ML BAG. IV PRN (17:45)
[2021-08-31] MEDS ORDERED: CALCIUM CARBONATE 500 MG TAB.CHEW PO PRN (17:45)
[2021-08-31] MEDS ORDERED: oxyCODONE IR 5 MG TABLET PO PRN (17:45)
[2021-08-31] MEDS ORDERED: ZOLPIDEM 5 MG TABLET. PO PRN (17:45)
[2021-08-31] MEDS ORDERED: NICOTINE 14MG PATCH. TD PRN (18:00)
[2021-08-31 19:00] VITALS: BP 148/63
--- NOTE | 2021-08-31 19:04 | NUR ---
Consult called to Dr. Hayes,message left on voicemail.
[2021-08-31] MEDS: PIPERACILLIN/TAZOBACTAM 3.375 GM in IV NORMAL SALINE 50ML 50 ML IV SCH (19:15)
[2021-08-31] MEDS ORDERED: VANCOMYCIN 1.25 GM in IV NORMAL SALINE 250ML 250 ML IV ONE (20:00)
[2021-08-31] MEDS: VANCOMYCIN PER PHARMACY MC PRN ×2 (20:24→20:29)
--- NOTE | 2021-08-31 20:28 | NUR ---
Pharmacy Vancomycin Dosing Note S:Consulted to monitor and dose vancomycin started 08/31/21. O:BETH KEYS is a 61 year old F with Open toe amputation . Height: 5 feet, 9 inches Weight: 59.0 kg [place] Body Weight: 66.20 Adjusted Body Weight: 63.32 Dosing Weight: Actual Other Antibiotics: zosyn LABS: Last BUN: 20 Last Creatinine: 1.6 Creatinine Clearance: 35 mL/min Last WBC: 9.5 Last Procalcitonin: Tmax (past 24 hours): 98.1 Vancomycin Dosing: Loading Dose: 1250 mg x1 Dosing Weight: Actual Target Trough: 15-20 A: Based on: weight and renal function P: 1. Begin Vancomycin 1,000mg IV Q24H 2. Follow up Trough level on 09/02/21 at 2030 3. Pharmacy will continue to monitor, follow and adjust therapy as needed. Bozena Mckenna RPH, [id number]/31/[id number]
[2021-08-31] MEDS: GABAPENTIN 300 MG CAPSULE. PO SCH (21:37)
[2021-08-31] MEDS: traZODone 50 MG TABLET. PO SCH (21:37)
[2021-08-31] MEDS: DOCUSATE SODIUM 100 MG CAPSULE. PO SCH (21:37)
[2021-08-31] MEDS: INSULIN GLARGINE SYRINGE. SQ SCH (21:41)
[2021-08-31] MEDS: HYDROcodone/APAP 5/325MG 1 TAB TABLET PO PRN (21:49)
[2021-08-31 23:59] VITALS: BP 140/63
[2021-09-01] MEDS: PIPERACILLIN/TAZOBACTAM 3.375 GM in IV NORMAL SALINE 50ML 50 ML IV SCH ×4 (00:31→17:04)
[2021-09-01 03:26] VITALS: BP 109/56
[2021-09-01] MEDS: HYDROcodone/APAP 5/325MG 1 TAB TABLET PO PRN ×3 (04:46→19:57)
[2021-09-01] MEDS: IV NORMAL SALINE 1000ML BAG 1,000 ML IV SCH ×2 (05:35→10:05)
[2021-09-01] MEDS: HEPARIN for SUB-Q USE 5,000 UNIT/ML VIAL. SQ SCH ×3 (06:04→21:07)
[2021-09-01 07:00] VITALS: BP 123/57
[2021-09-01] MEDS: PANTOPRAZOLE 40 MG TABLET.DR. PO SCH (08:10)
[2021-09-01] MEDS: LINAGLIPTIN 5 MG TABLET PO SCH (08:10)
[2021-09-01] MEDS: GABAPENTIN 300 MG CAPSULE. PO SCH ×3 (08:10→21:03)
[2021-09-01] MEDS: DOCUSATE SODIUM 100 MG CAPSULE. PO SCH ×2 (08:10→21:04)
[2021-09-01] MEDS: DULoxetine HCL 30 MG CAPSULE.DR PO SCH (08:10)
[2021-09-01] MEDS: CLOPIDOGREL BISULFATE 75 MG TABLET PO SCH (08:11)
[2021-09-01] MEDS: ELECTROLYTE (NON-ICU) PROTOCOL. MC SCH (08:12)
[2021-09-01] MEDS: LISINOPRIL 20 MG TABLET PO SCH (08:12)
[2021-09-01] MEDS: INSULIN LISPRO 300 UNITS/3 ML VIAL. SQ SCH ×3 (08:18→17:07)
--- NOTE | 2021-09-01 09:46 | PDOC ---
Provider Note Date of Service: DATE: 09/01/21 TIME: 09:44 Provider Note Provider Note Vascular S: Patient is without complaints. Oh: Awake and alert Vital signs stable, afebrile Heart rate regular Nonlabored respirations left leg incision dressings are dry and intact. Dressing removed from left foot. First toe amputation site wound is clean no purulent drainage. Some mild active bleeding along skin edges. Biphasic Doppler posterior tib and monophasic dorsalis pedis. A/P: PAD with toe ulceration POD #1 1. Left common femoral artery endarterectomy 2. Left common femoral artery to tibioperoneal artery bypass using great saphenous vein in the non-reversed fashion 3. Left leg great saphenous vein harvest 4. Left first toe open ray amputation including resection of the metatarsal head Recommend wound VAC placement today. Antibiotics per infectious disease. Patient will need to offload her left forefoot. This may be challenging due to her right leg amputation. Will ask physical therapy to evaluate patient. Also recommend referral to rn social services for rehab placement. Discontinue IV fluids per orders Am lab pending. Justicifation of Admission Dx: Justifications for Admission: Justification of Admission Dx: Yes ANDRAE PINZON [employer] Sep 01, 2021 09:46
[2021-09-01 10:51] VITALS: BP 100/49
[2021-09-01] MEDS: VANCOMYCIN PER PHARMACY MC PRN (13:41)
[2021-09-01 14:39] LABS: BASO % 0 % (0-3); EOS % 0 % (0-3); HEMATOCRIT 26.7 % (36.0-47.0); HEMOGLOBIN 8.9 g/dL (12.0-15.5); LYMPH # 1.1 x10^3/uL (1.0-4.8); LYMPH % 12 % (24-48); MEAN CORPUSCULAR HEMOGLOBIN 29 pg (25-35); MEAN CORPUSCULAR HGB CONC 33 g/dL (31-37); MEAN CORPUSCULAR VOLUME 87 fL (79-100); MONO # 0.7 x10^3/uL (0.0-1.1); MONO % 7 % (0-9); NEUT # 7.4 x10^3/uL (1.8-7.7); NEUT % 80 % (31-73); PLATELET COUNT 362 x10^3/uL (140-400); RED BLOOD COUNT 3.09 x10^6/uL (3.50-5.40); RED CELL DISTRIBUTION WIDTH 15.1 % (11.5-14.5); WHITE BLOOD COUNT 9.3 x10^3/uL (4.0-11.0)
[2021-09-01 15:00] VITALS: BP 132/61
[2021-09-01 15:05] LABS: CALCIUM 8.1 mg/dL (8.5-10.1); CREATININE 1.6 mg/dL (0.6-1.0); GFR 32.9; MAGNESIUM 1.6 mg/dL (1.8-2.4); PHOSPHORUS 3.6 mg/dL (2.6-4.7); POTASSIUM 3.6 mmol/L (3.5-5.1)
--- NOTE | 2021-09-01 15:55 | NUR ---
Wound Care Wound Type/Assessment: Pt s/p open amputation of L great toe. Pt known to wound clinic for evaluation of same and had been referred to Vascular for further workup. Wound pictured and measured. Wound base is moist a nd pale pink with a tunnel at 10:00 and exposed bone. Wound margins well defined and intact. One piece of black foam applied to wound base; tracked to L anterior lower leg. Good seal achieved. No other wounds noted on head to toe inspection. Treatment Recommendations/Plan: Continue NPWT at 125mmHg continuous suction. Wound care will change on MW Education provided: Education provided r/t pressure ulcer prevention, wound healing, and diabetes management. Pt voices understanding. Offloading surface/device: Pt is independent with mobility Recommended Referrals/Tests: NA Discharge Recommendations for dressings: As above. May follow up in the wound clinic after DC
[2021-09-01] MEDS ORDERED: MAGNESIUM SULFATE 2GM 50 ML IV ONE (17:00)
[2021-09-01 19:21] VITALS: BP 104/51
[2021-09-01] MEDS ORDERED: VANCOMYCIN 1 GM in IV NORMAL SALINE 250ML 250 ML IV SCH (21:00)
[2021-09-01] MEDS: LACTOBACILLUS RHAMNOSUS GG 1 CAPSULE. PO SCH (21:03)
[2021-09-01] MEDS: traZODone 50 MG TABLET. PO SCH (21:03)
[2021-09-01] MEDS: INSULIN GLARGINE SYRINGE. SQ SCH (21:04)
[2021-09-01] MEDS: NICOTINE 21MG PATCH. TD PRN (21:04)
[2021-09-01 22:20] VITALS: BP 116/58
[2021-09-02] MEDS: PIPERACILLIN/TAZOBACTAM 3.375 GM in IV NORMAL SALINE 50ML 50 ML IV SCH ×3 (00:07→12:08)
[2021-09-02 02:03] VITALS: BP 117/58
[2021-09-02] MEDS: IV NORMAL SALINE 1000ML BAG 1,000 ML IV SCH ×2 (02:52→22:32)
[2021-09-02] MEDS: HYDROcodone/APAP 5/325MG 1 TAB TABLET PO PRN ×3 (02:52→12:13)
[2021-09-02] MEDS: PANTOPRAZOLE 40 MG TABLET.DR. PO SCH (05:45)
[2021-09-02] MEDS: HEPARIN for SUB-Q USE 5,000 UNIT/ML VIAL. SQ SCH ×3 (05:46→21:43)
[2021-09-02 07:00] VITALS: BP 131/60
[2021-09-02] MEDS: INSULIN LISPRO 300 UNITS/3 ML VIAL. SQ SCH ×3 (08:00→17:11)
--- NOTE | 2021-09-02 08:34 | CONS ---
DATE OF CONSULTATION: 09/01/2021 REQUESTING PHYSICIAN: Dr. Frazier. REASON FOR CONSULTATION: Open toe amputation. HISTORY OF PRESENT ILLNESS: This is a 61-year-old female who has severe peripheral artery disease and gangrene of the left first toe. The patient underwent a left common femoral artery endarterectomy, left common femoral artery, tibioperoneal artery bypass, left great saphenous vein harvest and left first toe ray amputation open to the metatarsal head. Intraoperative cultures showing gram positives and gram negatives, has not been finalized. The patient is receiving vancomycin and Zosyn. The patient denies any nausea, vomiting, diarrhea, chest pain, shortness of breath, abdominal pain, urinary symptoms or bowel symptoms. PAST MEDICAL HISTORY: Positive for diabetes mellitus, hypertension, peripheral arterial disease, gastroesophageal reflux disease, and right BKA. SOCIAL HISTORY: Positive for smoking until she came in. No alcohol use or drug use. ALLERGIES: LISTED ALLERGIC TO IODINE. CURRENT MEDICATIONS: Reviewed. REVIEW OF SYSTEMS: As per the HPI. All other systems reviewed and are negative. PHYSICAL EXAMINATION: GENERAL: Alert, oriented female, not in distress. VITAL SIGNS: Stable. Temperature 98.7, pulse 59, respirations 22, blood pressure 100/49. HEENT: Both pupils are round and reacting. No conjunctival lesion. No lesion in the mouth. NECK: Supple, no JVP, no lymphadenopathy. LUNGS: Clear. HEART: S1, S2, regular. ABDOMEN: Soft, nontender, no organomegaly. EXTREMITIES: No edema or cyanosis. SKIN: Unremarkable. NEUROLOGIC: The patient is neurologically alert, awake, and appropriate. No focal neurologic deficit. Her left foot amputation site looks healthy, clean; reviewed. LABORATORY DATA: White count is 9.5. BUN and creatinine is 20 and 1.6 and the culture as I mentioned. IMPRESSION: 1. Left big toe gangrene, status post open ray amputation. 2. Left peripheral arterial disease, status post left leg bypass. 3. Diabetes mellitus. 4. Hypertension. 5. Gastroesophageal reflux disease. RECOMMENDATIONS: We would not dose vancomycin since creatinine is actually abnormal. We will continue Zosyn and depending upon the culture, we may have to decide whether she will need daptomycin or not. Supportive care and will continue to follow. Thank you very much, Dr. Diallo and Dr. Frazier, for giving me opportunity to participate in this patient's care. SRD/ELIZABETH/MAYA DR: JAYDON/vi TID: [id number]
[2021-09-02] MEDS: CLOPIDOGREL BISULFATE 75 MG TABLET PO SCH (08:45)
[2021-09-02] MEDS: LACTOBACILLUS RHAMNOSUS GG 1 CAPSULE. PO SCH ×2 (08:46→21:41)
[2021-09-02] MEDS: LINAGLIPTIN 5 MG TABLET PO SCH (08:46)
[2021-09-02] MEDS: DULoxetine HCL 30 MG CAPSULE.DR PO SCH (08:46)
[2021-09-02] MEDS: GABAPENTIN 300 MG CAPSULE. PO SCH ×3 (08:46→21:41)
[2021-09-02] MEDS: LISINOPRIL 20 MG TABLET PO SCH (08:47)
[2021-09-02] MEDS: DOCUSATE SODIUM 100 MG CAPSULE. PO SCH ×2 (09:00→21:42)
[2021-09-02] MEDS: ELECTROLYTE (NON-ICU) PROTOCOL. MC SCH (09:00)
[2021-09-02 11:16] VITALS: BP 124/57
--- NOTE | 2021-09-02 12:28 | PDOC ---
Infectious Disease Note Subjective Subjective Patient is feeling okay ROS ROS No nausea vomiting diarrhea or pain Vital Sign Vital Signs Vital Signs Date Time Temp Pulse Resp B/P (MAP) Pulse Ox O2 Delivery O2 Flow Rate FiO2 09/02/21 12:13 96 Room Air 10.0 09/02/21 11:16 97.0 73 16 124/57 (79) 97.0 Physical Exam PHYSICAL EXAM GENERAL: Alert, oriented female, not in distress. VITAL SIGNS: Stable. HEENT: Both pupils are round and reacting. No conjunctival lesion. No lesion in the mouth. NECK: Supple, no JVP, no lymphadenopathy. LUNGS: Clear. HEART: S1, S2, regular. ABDOMEN: Soft, nontender, no organomegaly. EXTREMITIES: No edema or cyanosis. SKIN: Unremarkable. NEUROLOGIC: The patient is neurologically alert, awake, and appropriate. No focal neurologic deficit. Her left foot amputation site looks healthy, clean; reviewed. Labs Lab Laboratory Tests Test 09/01/21 14:10 09/01/21 15:35 09/01/21 16:58 09/01/21 20:44 White Blood Count 9.3 x10^3/uL (4.0-11.0) Red Blood Count 3.09 x10^6/uL (3.50-5.40) Hemoglobin 8.9 g/dL (12.0-15.5) Hematocrit 26.7 % (36.0-47.0) Mean Corpuscular Volume 87 fL (79-100) Mean Corpuscular Hemoglobin 29 pg (25-35) Mean Corpuscular Hemoglobin Concent 33 g/dL (31-37) Red Cell Distribution Width 15.1 % (11.5-14.5) Platelet Count 362 x10^3/uL (140-400) Neutrophils (%) (Auto) 80 % (31-73) Lymphocytes (%) (Auto) 12 % (24-48) Monocytes (%) (Auto) 7 % (0-9) Eosinophils (%) (Auto) 0 % (0-3) Basophils (%) (Auto) 0 % (0-3) Neutrophils # (Auto) 7.4 x10^3/uL (1.8-7.7) Lymphocytes # (Auto) 1.1 x10^3/uL (1.0-4.8) Monocytes # (Auto) 0.7 x10^3/uL (0.0-1.1) Eosinophils # (Auto) 0.0 x10^3/uL (0.0-0.7) Basophils # (Auto) 0.0 x10^3/uL (0.0-0.2) Sodium Level 141 mmol/L (136-145) Potassium Level 3.6 mmol/L (3.5-5.1) Chloride Level 107 mmol/L (98-107) Carbon Dioxide Level 26 mmol/L (21-32) Anion Gap 8 (6-14) Blood Urea Nitrogen 16 mg/dL (7-20) Creatinine 1.6 mg/dL (0.6-1.0) Estimated GFR (Cockcroft-Gault) 32.9 Glucose Level 195 mg/dL (70-99) Calcium Level 8.1 mg/dL (8.5-10.1) Phosphorus Level 3.6 mg/dL (2.6-4.7) Magnesium Level 1.6 mg/dL (1.8-2.4) Glucose (Fingerstick) 208 mg/dL (70-99) 253 mg/dL (70-99) 223 mg/dL (70-99) Test 09/02/21 07:41 09/02/21 11:54 Glucose (Fingerstick) 73 mg/dL (70-99) 149 mg/dL (70-99) Micro GRAM STAIN-AER DESEAN Final PMNS (WBCS): RARE SQUAMOUS EPI CELL: RARE GRAM NEGATIVE RODS: MANY GRAM POS COCCI: [place] [address] director compliance: Lanny Wong MD CULTURE ANAEROBIC/AEROBIC Preliminary MIXED AEROBIC KATHLEEN ISOLATED INCLUDING: MANY STAPHYLOCOCCUS AUREUS MANY ENTEROCOCCUS FAECALIS MANY STREPTOCOCCUS ANGINOSUS RARE ACINETOBACTER PITTII [place] [address] director compliance: Lanny Wong MD Objective Assessment IMPRESSION: 1. Left big toe gangrene, status post open ray amputation. 2. Left peripheral arterial disease, status post left leg bypass. 3. Diabetes mellitus. 4. Hypertension. 5. Gastroesophageal reflux disease. Plan Plan of Care JEFFREY Bonilla MD Sep 02, 2021 12:28
[2021-09-02 15:00] VITALS: BP 118/59
[2021-09-02] MEDS ORDERED: TIGECYCLINE 100 MG in IV DEXTROSE 5% 100ML 100 ML IV ONE (15:00)
--- NOTE | 2021-09-02 15:18 | NUR ---
SS following for discharge planning. SS reviewed pt chart and discussed with pt RN. Pt is from home and is currently on room air. COVID19 negative. Pt on IV Tigecycline. PT/OT recommended acute rehabilitation. SS met with pt and discussed discharge planning and acute rehabilitation. Pt requesting to go to [facility], ; fax [phone], due to previous experience. Referral sent to [facility] as requested. SS will continue to follow for discharge planning.
--- NOTE | 2021-09-02 16:09 | PDOC ---
[employer] PROGRESS NOTE Date of Service DOS: DATE: 09/02/21 TIME: 16:02 Chief Complaint Chief Complaint S/P femoral endarterectomy S/P left common femoral artery to tibial peroneal artery bypass using greater saphenous vein S/P left leg great saphenous vein harvest S/P left first toe open ray amputation including resection of the metatarsal head PVD DM2 GERD History of Present Illness History of Present Illness 09/02: Patient seen and evaluated bedside. S/P femoral endarterectomy and left first toe amputation. Wound VAC in place to left foot. States her pain increases at night. Reminded patient that she has higher strength options for pain management if she needs them. Wound cultures growing staph, Enterococcus, strep, and actinobacter. We will continue to follow cultures for sensitivities. Will order oral iron. Discussed with RN. Vitals/I&O Vitals/I&O: Vital Signs Date Time Temp Pulse Resp B/P (MAP) Pulse Ox O2 Delivery O2 Flow Rate FiO2 09/02/21 13:41 96 Room Air 10.0 09/02/21 11:16 97.0 73 16 124/57 (79) 97.0 I & O 09/01/21 09/01/21 09/02/21 15:00 23:00 07:00 Intake Total 1100 ml 0 ml Output Total 600 ml Balance 1100 ml -600 ml Physical Exam Physical Exam: GENERAL: Alert, oriented female, not in distress. VITAL SIGNS: Stable. HEENT: Both pupils are round and reacting. No conjunctival lesion. No lesion in the mouth. NECK: Supple, no JVP, no lymphadenopathy. LUNGS: Clear. HEART: S1, S2, regular. ABDOMEN: Soft, nontender, no organomegaly. EXTREMITIES: No edema or cyanosis. SKIN: Unremarkable. NEUROLOGIC: The patient is neurologically alert, awake, and appropriate. No focal neurologic deficit. Her left foot amputation site looks healthy, clean; reviewed. General: Alert, Oriented X3, Cooperative, No acute distress Heart: Regular rate Lungs: Clear Extremities: No cyanosis, Other (S/P left first toe amputation with wound VAC in place) Labs Labs: Laboratory Tests Test 09/01/21 16:58 09/01/21 20:44 09/02/21 07:41 09/02/21 11:54 Glucose (Fingerstick) 253 mg/dL (70-99) 223 mg/dL (70-99) 73 mg/dL (70-99) 149 mg/dL (70-99) Comment Review of Relevant I have reviewed the following items ted (where applicable) has been applied. Medications: Current Medications Medications (Trade) Dose Ordered Sig/Primitivo Route PRN Reason Start Time Stop Time Status Last Admin Dose Admin Lactobacillus Rhamnosus (Culturelle) 1 cap BID PO 09/01/21 21:00 09/02/21 08:46 Magnesium Sulfate 50 ml @ 25 mls/hr 1X ONCE IV 09/01/21 17:00 09/01/21 18:59 DC 09/01/21 17:30 Tigecycline 100 mg/Dextrose 100 ml @ 200 mls/hr 1X ONCE IV 09/02/21 15:00 09/02/21 15:29 DC 09/02/21 15:48 Justifications for Admission Other Justification STEFANI MIGUEL MD Sep 02, 2021 16:09
--- NOTE | 2021-09-02 16:35 | PDOC ---
PROGRESS NOTES Date of Service DATE: 09/02/21 TIME: 16:31 Subjective Subjective Pt seen and examined in her room today She is POD #2 s/p left fem - pop byass and great toe amp / debridement with wound VAC She has no significant c/o She denies any pain / paresthesias / weakness Overall in good spirits doing well no c/o Objective Objective Vital Signs Date Time Temp Pulse Resp B/P (MAP) Pulse Ox O2 Delivery O2 Flow Rate FiO2 09/02/21 15:00 98.1 68 17 118/59 (78) 98 Room Air 98.1 09/02/21 13:41 10.0 Intake and Output 09/02/21 07:00 Intake Total 1100 ml Output Total 600 ml Balance 500 ml Intake Oral 200 ml IV Total 900 ml Output Urine Total 600 ml Physical Exam Physical Exam left leg incision c/d/i -- dressing taken down no hematoma excellent PT and DP signals, 1+ palpable PT pulse wound VAC looks good Chest CTA abdomen soft, non-tender Plan Plan of Care doing well s/p left fem =-pop bypass VAC change tomorrow (left foot) and if looks good should be ready to go to rehab Comment Review of Relevant I have reviewed the following items ted (where applicable) has been applied. Labs Laboratory Tests Test 08/31/21 20:43 09/01/21 08:16 09/01/21 12:07 09/01/21 14:10 Glucose (Fingerstick) 265 mg/dL (70-99) 190 mg/dL (70-99) 127 mg/dL (70-99) White Blood Count 9.3 x10^3/uL (4.0-11.0) Red Blood Count 3.09 x10^6/uL (3.50-5.40) Hemoglobin 8.9 g/dL (12.0-15.5) Hematocrit 26.7 % (36.0-47.0) Mean Corpuscular Volume 87 fL (79-100) Mean Corpuscular Hemoglobin 29 pg (25-35) Mean Corpuscular Hemoglobin Concent 33 g/dL (31-37) Red Cell Distribution Width 15.1 % (11.5-14.5) Platelet Count 362 x10^3/uL (140-400) Neutrophils (%) (Auto) 80 % (31-73) Lymphocytes (%) (Auto) 12 % (24-48) Monocytes (%) (Auto) 7 % (0-9) Eosinophils (%) (Auto) 0 % (0-3) Basophils (%) (Auto) 0 % (0-3) Neutrophils # (Auto) 7.4 x10^3/uL (1.8-7.7) Lymphocytes # (Auto) 1.1 x10^3/uL (1.0-4.8) Monocytes # (Auto) 0.7 x10^3/uL (0.0-1.1) Eosinophils # (Auto) 0.0 x10^3/uL (0.0-0.7) Basophils # (Auto) 0.0 x10^3/uL (0.0-0.2) Sodium Level 141 mmol/L (136-145) Potassium Level 3.6 mmol/L (3.5-5.1) Chloride Level 107 mmol/L (98-107) Carbon Dioxide Level 26 mmol/L (21-32) Anion Gap 8 (6-14) Blood Urea Nitrogen 16 mg/dL (7-20) Creatinine 1.6 mg/dL (0.6-1.0) Estimated GFR (Cockcroft-Gault) 32.9 Glucose Level 195 mg/dL (70-99) Calcium Level 8.1 mg/dL (8.5-10.1) Phosphorus Level 3.6 mg/dL (2.6-4.7) Magnesium Level 1.6 mg/dL (1.8-2.4) Test 09/01/21 15:35 09/01/21 16:58 09/01/21 20:44 09/02/21 07:41 Glucose (Fingerstick) 208 mg/dL (70-99) 253 mg/dL (70-99) 223 mg/dL (70-99) 73 mg/dL (70-99) Test 09/02/21 11:54 09/02/21 16:22 Glucose (Fingerstick) 149 mg/dL (70-99) 211 mg/dL (70-99) Laboratory Tests Test 09/01/21 16:58 09/01/21 20:44 09/02/21 07:41 09/02/21 11:54 Glucose (Fingerstick) 253 mg/dL (70-99) 223 mg/dL (70-99) 73 mg/dL (70-99) 149 mg/dL (70-99) Test 09/02/21 16:22 Glucose (Fingerstick) 211 mg/dL (70-99) Microbiology 08/31/21 Gram Stain - Final, Resulted 08/31/21 Aerobic and Anaerobic Culture - Preliminary, Resulted Enterococcus Faecalis Staphylococcus Aureus Medications Current Medications Fentanyl Citrate (Fentanyl 2ml Vial) 25 mcg PRN Q5MIN PRN IVP MILD PAIN 1-3; Start 08/31/21 at 06:00; Stop 09/01/21 at 05:59; Status DC Fentanyl Citrate (Fentanyl 2ml Vial) 50 mcg PRN Q5MIN PRN IVP MODERATE PAIN 4- 6; Start 08/31/21 at 06:00; Stop 09/01/21 at 05:59; Status DC Morphine Sulfate (Morphine Sulfate) 1 mg PRN Q10MIN PRN IVP SEVERE PAIN 7-10; Start 08/31/21 at 06:00; Stop 09/01/21 at 05:59; Status DC Ringer's Solution 1,000 ml @ 30 mls/hr Q24H IV Last administered on 08/31/21at 10:05; Start 08/31/21 at 06:00; Stop 08/31/21 at 17:59; Status DC Hydromorphone HCl (Dilaudid) 0.5 mg PRN Q10MIN PRN IVP SEVERE PAIN 7-10, 2nd CHOICE; Start 08/31/21 at 06:00; Stop 09/01/21 at 05:59; Status DC Prochlorperazine Edisylate (Compazine) 5 mg PACU PRN PRN IVP NAUSEA, MRX1; Start 08/31/21 at 06:00; Stop 09/01/21 at 05:59; Status DC Heparin Sodium (Porcine) 5000 unit/Sodium Chloride 505 ml @ 505 mls/hr 1X ONCE IRR Last administered on 08/31/21at 12:09; Start 08/31/21 at 06:00; Stop 08/31/21 at 06:59; Status DC Cefazolin Sodium 1 gm/Sodium Chloride 500 ml @ 500 mls/hr 1X ONCE IRR Last administered on 08/31/21at 12:09; Start 08/31/21 at 06:00; Stop 08/31/21 at 06:59; Status DC Cefazolin Sodium/ Dextrose 50 ml @ 100 mls/hr 1X PREOP PRN IV PRIOR TO PROCEDURE; Start 08/31/21 at 06:00; Stop 08/31/21 at 18:00; Status DC Insulin Human Lispro (HumaLOG VIAL for OP,RR ONLY) 0-10 units PRN Q1HR PRN SQ PER PROTOCOL Last administered on 08/31/21at 16:48; Start 08/31/21 at 09:30; Stop 09/01/21 at 09:29; Status DC Rocuronium Bloxom (Zemuron) 100 mg STK-MED ONCE .ROUTE ; Start 08/31/21 at 10:22; Stop 08/31/21 at 10:22; Status DC Fentanyl Citrate (Fentanyl 2ml Vial) 100 mcg STK-MED ONCE .ROUTE ; Start at 10:22; Stop 08/31/21 at 10:22; Status DC Glycopyrrolate (Robinul) 1 mg STK-MED ONCE .ROUTE ; Start 08/31/21 at 10:22; Stop 08/31/21 at 10:22; Status DC Propofol (Diprivan) 200 mg STK-MED ONCE IV ; Start 08/31/21 at 10:22; Stop 08/31/21 at 10:22; Status DC Ondansetron HCl (Zofran) 4 mg STK-MED ONCE .ROUTE ; Start 08/31/21 at 10:22; Stop 08/31/21 at 10:22; Status DC Dexamethasone Sodium Phosphate (Decadron) 4 mg STK-MED ONCE .ROUTE ; Start 08/31/21 at 10:22; Stop 08/31/21 at 10:22; Status DC Lidocaine HCl (Lidocaine Pf 2% Vial) 5 ml STK-MED ONCE .ROUTE ; Start 08/31/21 at 10:26; Stop 08/31/21 at 10:26; Status DC Midazolam HCl (Versed) 2 mg STK-MED ONCE .ROUTE ; Start 08/31/21 at 10:46; Stop 08/31/21 at 10:46; Status DC Sugammadex Sodium (Bridion) 200 mg 1X ONCE IVP ; Start 08/31/21 at 11:00; Stop 08/31/21 at 11:01; Status DC Gelatin (Gelfoam Size 12-7mm) 1 each STK-MED ONCE .ROUTE ; Start 08/31/21 at 10:49; Stop 08/31/21 at 10:49; Status DC Cellulose (Surgicel Fibrillar 1x2) 1 each STK-MED ONCE .ROUTE Last administered on 08/31/21at 14:19; Start 08/31/21 at 10:49; Stop 08/31/21 at 10:49; Status DC Iohexol (Omnipaque 300 Mg/ml) 50 ml STK-MED ONCE .ROUTE ; Start 08/31/21 at 10:49; Stop 08/31/21 at 10:50; Status DC Thrombin (Thrombin Topical) 5,000 unit STK-MED ONCE .ROUTE ; Start 08/31/21 at 10:49; Stop 08/31/21 at 10:50; Status DC Papaverine HCl 60 mg STK-MED ONCE .ROUTE ; Start 08/31/21 at 10:50; Stop 08/31/21 at 10:50; Status DC Thrombin 20,000 unit STK-MED ONCE TP ; Start 08/31/21 at 10:50; Stop 08/31/21 at 10:50; Status DC Phenylephrine HCl (PHENYLEPHRINE in 0.9% NACL PF) 1 mg STK-MED ONCE IV ; Start 08/31/21 at 11:46; Stop 08/31/21 at 11:47; Status DC Hydromorphone HCl (Dilaudid) 2 mg STK-MED ONCE .ROUTE ; Start 08/31/21 at 13:02; Stop 08/31/21 at 13:03; Status DC Sterile Water 10 ml @ As Directed STK-MED ONCE IJ ; Start 08/31/21 at 13:04; Stop 08/31/21 at 13:04; Status DC Protamine Sulfate (Protamine) 50 mg STK-MED ONCE IV ; Start 08/31/21 at 15:06; Stop 08/31/21 at 15:06; Status DC Diphenhydramine HCl (Benadryl) 25 mg PRN Q6HRS PRN PO ITCHING; Start 08/31/21 at 16:15 Info (Non-Icu Electrolyte Protocol) 1 ea DAILY MC ; Start 09/01/21 at 09:00 Sodium Chloride (Normal Saline Flush) 3 ml QSHIFT PRN IV AFTER MEDS AND BLOOD DRAWS; Start 08/31/21 at 16:15 Sodium Chloride 1,000 ml @ 75 mls/hr [id number] IV Last administered on 09/02/21at 02:52; Start 08/31/21 at 16:15 Acetaminophen/ Hydrocodone Bitart (Lortab 5/325) 1 tab PRN Q4HRS PRN PO MILD PAIN 1-3; Start 08/31/21 at 16:15; Stop 08/31/21 at 20:23; Status DC Acetaminophen/ Hydrocodone Bitart (Lortab 5/325) 2 tab PRN Q4HRS PRN PO MODERATE PAIN, SEVERE PAIN; Start 08/31/21 at 16:15; Stop 08/31/21 at 20:23; Status DC Oxycodone/ Acetaminophen (Percocet 5/325) 1 tab PRN Q4HRS PRN PO MILD PAIN, 2ND CHOICE; Start 08/31/21 at 16:15; Status Cancel Acetaminophen (Tylenol) 650 mg PRN Q6HRS PRN PO Headaches, Temp > 101.5F; Start 08/31/21 at 16:15; Status Cancel Morphine Sulfate (Morphine Sulfate) 2 mg PRN Q2HR PRN IV PAIN Last administered on 08/31/21at 22:42; Start 08/31/21 at 16:15 Naloxone HCl (Narcan) 0.4 mg PRN Q2MIN PRN IV SEE INSTRUCTIONS; Start 08/31/21 at 16:15 Sodium Chloride 1,000 ml @ 25 mls/hr Q24H IV ; Start 08/31/21 at 16:15; Stop 08/31/21 at 20:23; Status DC Docusate Sodium (Colace) 100 mg BID PO Last administered on 09/01/21at 21:04; Start 08/31/21 at 21:00 Ondansetron HCl (Zofran) 4 mg PRN Q6HRS PRN IVP NAUESA, 1ST CHOICE; Start 08/31/21 at 16:15; Stop 08/31/21 at 20:23; Status DC Vancomycin HCl (Vanco Per Pharmacy) 1 each PRN DAILY PRN MC SEE COMMENTS Last administered on 09/01/21at 13:41; Start 08/31/21 at 16:15; Stop 09/01/21 at 13:45; Status DC Piperacillin Sod/ Tazobactam Sod (Zosyn Per Pharmacy) 1 each PRN DAILY PRN MC SEE COMMENTS; Start 08/31/21 at 16:15; Stop 09/02/21 at 14:19; Status DC Amlodipine Besylate (Norvasc) 10 mg DAILY PO Last administered on 09/02/21at 08:46; Start 09/01/21 at 09:00 Clopidogrel Bisulfate (Plavix) 75 mg DAILY PO Last administered on 09/02/21at 08:45; Start 09/01/21 at 09:00 Duloxetine HCl (Cymbalta) 30 mg DAILY PO Last administered on 09/02/21at 08:46; Start 09/01/21 at 09:00 Gabapentin (Neurontin) 300 mg TID PO Last administered on 09/02/21at 14:20; Start 08/31/21 at 21:00 Lisinopril (Prinivil) 40 mg DAILY PO Last administered on 09/02/21at 08:47; Start 09/01/21 at 09:00 Pantoprazole Sodium (Protonix) 40 mg DAILYAC PO Last administered on 09/02/21at 05:45; Start 09/01/21 at 07:30 Trazodone HCl (Desyrel) 50 mg HS PO Last administered on 09/01/21at 21:03; Start 08/31/21 at 21:00 Linagliptin (Tradjenta) 5 mg DAILY PO Last administered on 09/02/21at 08:46; Start 09/01/21 at 09:00 Insulin Glargine (Lantus Syringe) 10 unit QHS SQ Last administered on 09/01/21at 21:04; Start 08/31/21 at 21:00 Insulin Human Lispro (HumaLOG) 0-7 UNITS TIDWMEALS SQ Last administered on 09/01/21at 17:07; Start 09/01/21 at 08:00 Dextrose (Dextrose 50%-Water Syringe) 12.5 gm PRN Q15MIN PRN IV SEE COMMENTS; Start 08/31/21 at 17:45; Status UNV Dextrose (Iv Dextrose 5%) 250 ml PRN Q15MIN PRN IV SEE COMMENTS; Start 08/31/21 at 17:45 Piperacillin Sod/ Tazobactam Sod 3.375 gm/Sodium Chloride 50 ml @ 100 mls/hr Q6HRS IV Last administered on 09/02/21at 12:08; Start 08/31/21 at 18:00; Stop 09/02/21 at 14:07; Status DC Ondansetron HCl (Zofran) 4 mg PRN Q6HRS PRN IVP NAUSEA/VOMITING; Start 08/31/21 at 17:45 Al Hydroxide/Mg Hydroxide (Mylanta Plus Xs) 30 ml PRN Q3HRS PRN PO HEARTBURN / GAS; Start 08/31/21 at 17:45 Calcium Carbonate/ Glycine (Tums) 500 mg PRN Q3HRS PRN PO UPSET STOMACH; Start 08/31/21 at 17:45 Zolpidem Tartrate (Ambien) 5 mg PRN QHS PRN PO INSOMNIA, MAY REPEAT IN 1HR; Start 08/31/21 at 17:45 Oxycodone HCl (Roxicodone) 5 mg PRN Q3HRS PRN PO BREAKTHROUGH PAIN; Start 08/31/21 at 17:45 Acetaminophen/ Hydrocodone Bitart (Lortab 5/325) 1 tab PRN Q4HRS PRN PO MILD PAIN 1-3; Start 08/31/21 at 17:45 Acetaminophen/ Hydrocodone Bitart (Lortab 5/325) 2 tab PRN Q4HRS PRN PO MODERATE PAIN, SEVERE PAIN Last administered on 09/02/21at 12:13; Start 08/31/21 at 17:45 Oxycodone/ Acetaminophen (Percocet 5/325) 1 tab PRN Q4HRS PRN PO MILD PAIN, 2ND CHOICE; Start 08/31/21 at 17:45 Oxycodone/ Acetaminophen (Percocet 5/325) 2 tab PRN Q4HRS PRN PO MODERATE PAIN, SEVERE PAIN; Start 08/31/21 at 17:45 Acetaminophen (Tylenol) 650 mg PRN Q6HRS PRN PO Headaches, Temp > 101.5F; Start 08/31/21 at 17:45 Heparin Sodium (Porcine) (Heparin Sodium) 5,000 unit Q8HRS SQ Last administered on 09/02/21at 14:21; Start 09/01/21 at 06:00 Nicotine (Nicoderm Cq 21mg) 1 patch PRN DAILY PRN TD SMOKING CESSATION Last administered on 09/01/21at 21:04; Start 08/31/21 at 18:00 Nicotine (Nicoderm Cq 14mg) 1 patch PRN DAILY PRN TD SMOKING CESSATION; Start 08/31/21 at 18:00 Vancomycin HCl 1.25 gm/Sodium Chloride 250 ml @ 166.667 mls/hr 1X ONCE IV Last administered on 08/31/21at 21:38; Start 08/31/21 at 20:00; Stop 08/31/21 at 21:29; Status DC Vancomycin HCl 1 gm/Sodium Chloride 250 ml @ 250 mls/hr Q24H IV ; Start 09/01/21 at 21:00; Stop 09/01/21 at 13:43; Status DC Vancomycin HCl (Vancomycin Trough Level) 1 each 1X ONCE MC ; Start 09/02/21 at 20:30; Stop 09/01/21 at 13:45; Status DC Lactobacillus Rhamnosus (Culturelle) 1 cap BID PO Last administered on 09/02/21at 08:46; Start 09/01/21 at 21:00 Magnesium Sulfate 50 ml @ 25 mls/hr 1X ONCE IV Last administered on 09/01/21at 17:30; Start 09/01/21 at 17:00; Stop 09/01/21 at 18:59; Status DC Tigecycline 50 mg/ Dextrose 50 ml @ 100 mls/hr Q12HR IV ; Start 09/02/21 at 21:00 Tigecycline 100 mg/Dextrose 100 ml @ 200 mls/hr 1X ONCE IV Last administered on 09/02/21at 15:48; Start 09/02/21 at 15:00; Stop 09/02/21 at 15:29; Status DC Diclofenac Sodium (Voltaren) 1 priyanka PRN BID PRN TP PAIN; Start 09/02/21 at 16:15 Ferrous Sulfate (Feosol) 325 mg DAILYWBKFT PO ; Start 09/03/21 at 08:00 Active Scripts Active Reported Clopidogrel (Clopidogrel Bisulfate) 75 Mg Tablet 75 Mg PO DAILY Trazodone Hcl 50 Mg Tablet 50 Mg PO HS Cymbalta (Duloxetine Hcl) 30 Mg Capsule.dr 30 Mg PO DAILY Lisinopril 40 Mg Tablet 1 Tab PO DAILY Amlodipine Besylate 10 Mg Tablet 10 Mg PO DAILY Januvia (Sitagliptin Phosphate) 100 Mg Tablet 1 Tab PO DAILY Protonix (Pantoprazole Sodium) 40 Mg Tablet.dr 40 Mg PO DAILYAC Gabapentin (Gabapentin) 300 Mg Capsule 300 Mg PO TID Metformin Hcl Er (Metformin Hcl) 500 Mg Tab.er.24h 500 Mg PO DAILYWBKFT Vitals/I & O Vital Sign - Last 24 Hours 09/01/21 09/01/21 09/01/21 09/01/21 19:21 19:45 19:57 20:27 Temp 97.7 97.7 Pulse 69 Resp 18 18 18 B/P (MAP) 104/51 (68) Pulse Ox 97 97 97 O2 Delivery Room Air Room Air Room Air Room Air 09/01/21 09/02/21 09/02/21 09/02/21 22:20 02:03 02:52 03:22 Temp 97.8 98.1 97.8 98.1 Pulse 74 69 Resp 18 16 16 18 B/P (MAP) 116/58 (77) 117/58 (77) Pulse Ox 96 94 94 96 O2 Delivery Room Air Room Air Room Air Room Air 09/02/21 09/02/21 09/02/21 09/02/21 07:00 07:22 08:00 08:11 Temp 97.6 97.6 Pulse 78 Resp 16 18 B/P (MAP) 131/60 (83) Pulse Ox 98 96 96 O2 Delivery Room Air Room Air Room Air Room Air O2 Flow Rate 10.0 09/02/21 09/02/21 09/02/21 09/02/21 08:46 08:47 11:16 12:13 Temp 97.0 97.0 Pulse 71 71 73 Resp 16 B/P (MAP) 131/60 131/60 124/57 (79) Pulse Ox 96 96 O2 Delivery Room Air Room Air O2 Flow Rate 10.0 09/02/21 09/02/21 13:41 15:00 Temp 98.1 98.1 Pulse 68 Resp 17 B/P (MAP) 118/59 (78) Pulse Ox 96 98 O2 Delivery Room Air Room Air O2 Flow Rate 10.0 Intake and Output 09/01/21 09/01/21 09/02/21 15:00 23:00 07:00 Intake Total 1100 ml 0 ml Output Total 600 ml Balance 1100 ml -600 ml Justifications for Admission Other Justification ERNA,ISIS Tony MD Sep 02, 2021 16:35
[2021-09-02] MEDS: DICLOFENAC SODIUM 1% TOPICAL GEL 100GM TUBE. TP PRN (17:09)
[2021-09-02 19:00] VITALS: BP 162/72
[2021-09-02] MEDS: oxyCODONE/APAP 5/325 1 TAB TABLET PO PRN (21:41)
[2021-09-02] MEDS: traZODone 50 MG TABLET. PO SCH (21:41)
[2021-09-02] MEDS: NICOTINE 21MG PATCH. TD PRN (21:41)
[2021-09-02] MEDS: TIGECYCLINE 50 MG in IV DEXTROSE 5% 50 ML IV SCH (21:42)
[2021-09-02] MEDS: INSULIN GLARGINE SYRINGE. SQ SCH (21:43)
[2021-09-02 22:59] VITALS: BP 180/73
[2021-09-03 02:36] VITALS: BP 176/75
[2021-09-03] MEDS: oxyCODONE/APAP 5/325 1 TAB TABLET PO PRN ×4 (03:05→22:00)
[2021-09-03] MEDS: DICLOFENAC SODIUM 1% TOPICAL GEL 100GM TUBE. TP PRN (03:05)
[2021-09-03 04:44] LABS: HEMATOCRIT 27.7 % (36.0-47.0); RED BLOOD COUNT 3.2 x10^6/uL (3.50-5.40); RED CELL DISTRIBUTION WIDTH 14.9 % (11.5-14.5); WHITE BLOOD COUNT 11.1 x10^3/uL (4.0-11.0)
[2021-09-03] MEDS: PANTOPRAZOLE 40 MG TABLET.DR. PO SCH (05:28)
[2021-09-03] MEDS: HEPARIN for SUB-Q USE 5,000 UNIT/ML VIAL. SQ SCH ×3 (05:29→22:00)
[2021-09-03 07:00] VITALS: BP 180/78
[2021-09-03] MEDS: DULoxetine HCL 30 MG CAPSULE.DR PO SCH (08:40)
[2021-09-03] MEDS: LINAGLIPTIN 5 MG TABLET PO SCH (08:40)
[2021-09-03] MEDS: GABAPENTIN 300 MG CAPSULE. PO SCH ×3 (08:40→21:00)
[2021-09-03] MEDS: LACTOBACILLUS RHAMNOSUS GG 1 CAPSULE. PO SCH ×2 (08:40→21:00)
[2021-09-03] MEDS: CLOPIDOGREL BISULFATE 75 MG TABLET PO SCH (08:40)
[2021-09-03] MEDS: FERROUS SULFATE 325 MG TABLET. PO SCH (08:40)
[2021-09-03] MEDS: LISINOPRIL 20 MG TABLET PO SCH (08:41)
[2021-09-03] MEDS: DOCUSATE SODIUM 100 MG CAPSULE. PO SCH ×2 (08:41→21:00)
[2021-09-03] MEDS: TIGECYCLINE 50 MG in IV DEXTROSE 5% 50 ML IV SCH ×2 (08:42→21:00)
[2021-09-03] MEDS: INSULIN LISPRO 300 UNITS/3 ML VIAL. SQ SCH ×3 (08:44→16:45)
[2021-09-03] MEDS: ELECTROLYTE (NON-ICU) PROTOCOL. MC SCH (09:00)
--- NOTE | 2021-09-03 09:59 | NUR ---
Wound Care Wound Type/Assessment: Patient seen for wound vac dressing change. Pt s/p open amputation of L great toe. Pt known to wound clinic. Wound cleansed, assessed, pictured and measured. Wound base is moist a nd pale pink with a tunnel at 12:00 and exposed bone. Wound margins well defined and intact. One piece of black foam applied to wound base; tracked to L anterior lower leg. Good seal achieved at 125mmHg continuous. No other wounds noted on head to toe inspection. Treatment Recommendations/Plan: Continue NPWT at 125mmHg continuous suction. Wound care will change on MWF. If patient discharges home there is a [employer] vac approved, however if going to facility will need wound vac therapy approved there as well. Education provided: Education provided r/t pressure ulcer prevention, wound healing, and diabetes management. Pt voices understanding. Offloading surface/device: Pt is independent with mobility Recommended Referrals/Tests: NA Discharge Recommendations for dressings: Will need wound vac orders if transferring to facility, if patient goes home [employer] home vac has been approved. Bed lowered and call light in reach. Wound care will follow up with patient on Monday.
--- NOTE | 2021-09-03 10:39 | PDOC ---
PROGRESS NOTES Date of Service DATE: 09/03/21 TIME: 10:37 Subjective Subjective She has generalized malaise and some nausea this morning. She has expected left leg incisional discomfort. No chest pain or shortness of breath. Objective Objective Vital Signs Date Time Temp Pulse Resp B/P (MAP) Pulse Ox O2 Delivery O2 Flow Rate FiO2 09/03/21 09:59 96 Room Air 10.0 09/03/21 08:41 99 180/40 09/03/21 03:35 16 09/03/21 02:36 98.8 98.8 Intake and Output 09/03/21 07:00 Output Total 2251 ml Balance -2251 ml Output Urine Total 2250 ml Stool Total 1 ml # Bowel Movements 3 Physical Exam Abdomen: Soft, No tenderness Heart: Regular rate Extremities: Other (Left medial leg incisions intact. No erythema or fluctuance. Minimal edema. Wound VAC in place over left foot and toe amputation site. Good biphasic Doppler signal in left posterior tibial artery) Assessment Assessment 1. Peripheral arterial disease status post left femoral to distal bypass with toe amputation 2. Hypertension 3. Hyperlipidemia Plan Plan of Care She continues to slowly recuperate following left leg bypass and toe amputation. Continue local wound care with wound VAC. She has some nausea today of uncertain etiology. Continue supportive care. May heel touch weight-bear on the left for transfers. Comment Review of Relevant I have reviewed the following items ted (where applicable) has been applied. Labs Laboratory Tests Test 09/01/21 12:07 09/01/21 14:10 09/01/21 15:35 09/01/21 16:58 Glucose (Fingerstick) 127 mg/dL (70-99) 208 mg/dL (70-99) 253 mg/dL (70-99) White Blood Count 9.3 x10^3/uL (4.0-11.0) Red Blood Count 3.09 x10^6/uL (3.50-5.40) Hemoglobin 8.9 g/dL (12.0-15.5) Hematocrit 26.7 % (36.0-47.0) Mean Corpuscular Volume 87 fL (79-100) Mean Corpuscular Hemoglobin 29 pg (25-35) Mean Corpuscular Hemoglobin Concent 33 g/dL (31-37) Red Cell Distribution Width 15.1 % (11.5-14.5) Platelet Count 362 x10^3/uL (140-400) Neutrophils (%) (Auto) 80 % (31-73) Lymphocytes (%) (Auto) 12 % (24-48) Monocytes (%) (Auto) 7 % (0-9) Eosinophils (%) (Auto) 0 % (0-3) Basophils (%) (Auto) 0 % (0-3) Neutrophils # (Auto) 7.4 x10^3/uL (1.8-7.7) Lymphocytes # (Auto) 1.1 x10^3/uL (1.0-4.8) Monocytes # (Auto) 0.7 x10^3/uL (0.0-1.1) Eosinophils # (Auto) 0.0 x10^3/uL (0.0-0.7) Basophils # (Auto) 0.0 x10^3/uL (0.0-0.2) Sodium Level 141 mmol/L (136-145) Potassium Level 3.6 mmol/L (3.5-5.1) Chloride Level 107 mmol/L (98-107) Carbon Dioxide Level 26 mmol/L (21-32) Anion Gap 8 (6-14) Blood Urea Nitrogen 16 mg/dL (7-20) Creatinine 1.6 mg/dL (0.6-1.0) Estimated GFR (Cockcroft-Gault) 32.9 Glucose Level 195 mg/dL (70-99) Calcium Level 8.1 mg/dL (8.5-10.1) Phosphorus Level 3.6 mg/dL (2.6-4.7) Magnesium Level 1.6 mg/dL (1.8-2.4) Test 09/01/21 20:44 09/02/21 07:41 09/02/21 11:54 09/02/21 16:22 Glucose (Fingerstick) 223 mg/dL (70-99) 73 mg/dL (70-99) 149 mg/dL (70-99) 211 mg/dL (70-99) Test 09/02/21 21:20 09/03/21 04:15 09/03/21 07:29 Glucose (Fingerstick) 160 mg/dL (70-99) 157 mg/dL (70-99) White Blood Count 11.1 x10^3/uL (4.0-11.0) Red Blood Count 3.20 x10^6/uL (3.50-5.40) Hemoglobin 9.0 g/dL (12.0-15.5) Hematocrit 27.7 % (36.0-47.0) Mean Corpuscular Volume 86 fL (79-100) Mean Corpuscular Hemoglobin 28 pg (25-35) Mean Corpuscular Hemoglobin Concent 33 g/dL (31-37) Red Cell Distribution Width 14.9 % (11.5-14.5) Platelet Count 418 x10^3/uL (140-400) Laboratory Tests Test 09/02/21 11:54 09/02/21 16:22 09/02/21 21:20 09/03/21 04:15 Glucose (Fingerstick) 149 mg/dL (70-99) 211 mg/dL (70-99) 160 mg/dL (70-99) White Blood Count 11.1 x10^3/uL (4.0-11.0) Red Blood Count 3.20 x10^6/uL (3.50-5.40) Hemoglobin 9.0 g/dL (12.0-15.5) Hematocrit 27.7 % (36.0-47.0) Mean Corpuscular Volume 86 fL (79-100) Mean Corpuscular Hemoglobin 28 pg (25-35) Mean Corpuscular Hemoglobin Concent 33 g/dL (31-37) Red Cell Distribution Width 14.9 % (11.5-14.5) Platelet Count 418 x10^3/uL (140-400) Test 09/03/21 07:29 Glucose (Fingerstick) 157 mg/dL (70-99) Microbiology 08/31/21 Gram Stain - Final, Resulted 08/31/21 Aerobic and Anaerobic Culture - Preliminary, Resulted Enterococcus Faecalis Staphylococcus Aureus Medications Current Medications Fentanyl Citrate (Fentanyl 2ml Vial) 25 mcg PRN Q5MIN PRN IVP MILD PAIN 1-3; Start 08/31/21 at 06:00; Stop 09/01/21 at 05:59; Status DC Fentanyl Citrate (Fentanyl 2ml Vial) 50 mcg PRN Q5MIN PRN IVP MODERATE PAIN 4- 6; Start 08/31/21 at 06:00; Stop 09/01/21 at 05:59; Status DC Morphine Sulfate (Morphine Sulfate) 1 mg PRN Q10MIN PRN IVP SEVERE PAIN 7-10; Start 08/31/21 at 06:00; Stop 09/01/21 at 05:59; Status DC Ringer's Solution 1,000 ml @ 30 mls/hr Q24H IV Last administered on 08/31/21at 10:05; Start 08/31/21 at 06:00; Stop 08/31/21 at 17:59; Status DC Hydromorphone HCl (Dilaudid) 0.5 mg PRN Q10MIN PRN IVP SEVERE PAIN 7-10, 2nd CHOICE; Start 08/31/21 at 06:00; Stop 09/01/21 at 05:59; Status DC Prochlorperazine Edisylate (Compazine) 5 mg PACU PRN PRN IVP NAUSEA, MRX1; Start 08/31/21 at 06:00; Stop 09/01/21 at 05:59; Status DC Heparin Sodium (Porcine) 5000 unit/Sodium Chloride 505 ml @ 505 mls/hr 1X ONCE IRR Last administered on 08/31/21at 12:09; Start 08/31/21 at 06:00; Stop 08/31/21 at 06:59; Status DC Cefazolin Sodium 1 gm/Sodium Chloride 500 ml @ 500 mls/hr 1X ONCE IRR Last administered on 08/31/21at 12:09; Start 08/31/21 at 06:00; Stop 08/31/21 at 06:59; Status DC Cefazolin Sodium/ Dextrose 50 ml @ 100 mls/hr 1X PREOP PRN IV PRIOR TO PROCEDURE; Start 08/31/21 at 06:00; Stop 08/31/21 at 18:00; Status DC Insulin Human Lispro (HumaLOG VIAL for OP,RR ONLY) 0-10 units PRN Q1HR PRN SQ PER PROTOCOL Last administered on 08/31/21at 16:48; Start 08/31/21 at 09:30; Stop 09/01/21 at 09:29; Status DC Rocuronium Grygla (Zemuron) 100 mg STK-MED ONCE .ROUTE ; Start 08/31/21 at 1 0:22; Stop 08/31/21 at 10:22; Status DC Fentanyl Citrate (Fentanyl 2ml Vial) 100 mcg STK-MED ONCE .ROUTE ; Start 08/31/21 at 10:22; Stop 08/31/21 at 10:22; Status DC Glycopyrrolate (Robinul) 1 mg STK-MED ONCE .ROUTE ; Start 08/31/21 at 10:22; Stop 08/31/21 at 10:22; Status DC Propofol (Diprivan) 200 mg STK-MED ONCE IV ; Start 08/31/21 at 10:22; Stop 08/31/21 at 10:22; Status DC Ondansetron HCl (Zofran) 4 mg STK-MED ONCE .ROUTE ; Start 08/31/21 at 10:22; Stop 08/31/21 at 10:22; Status DC Dexamethasone Sodium Phosphate (Decadron) 4 mg STK-MED ONCE .ROUTE ; Start 08/31/21 at 10:22; Stop 08/31/21 at 10:22; Status DC Lidocaine HCl (Lidocaine Pf 2% Vial) 5 ml STK-MED ONCE .ROUTE ; Start 08/31/21 at 10:26; Stop 08/31/21 at 10:26; Status DC Midazolam HCl (Versed) 2 mg STK-MED ONCE .ROUTE ; Start 08/31/21 at 10:46; Stop 08/31/21 at 10:46; Status DC Sugammadex Sodium (Bridion) 200 mg 1X ONCE IVP ; Start 08/31/21 at 11:00; Stop 08/31/21 at 11:01; Status DC Gelatin (Gelfoam Size 12-7mm) 1 each STK-MED ONCE .ROUTE ; Start 08/31/21 at 10:49; Stop 08/31/21 at 10:49; Status DC Cellulose (Surgicel Fibrillar 1x2) 1 each STK-MED ONCE .ROUTE Last administered on 08/31/21at 14:19; Start 08/31/21 at 10:49; Stop 08/31/21 at 10:49; Status DC Iohexol (Omnipaque 300 Mg/ml) 50 ml STK-MED ONCE .ROUTE ; Start 08/31/21 at 10:49; Stop 08/31/21 at 10:50; Status DC Thrombin (Thrombin Topical) 5,000 unit STK-MED ONCE .ROUTE ; Start 08/31/21 at 10:49; Stop 08/31/21 at 10:50; Status DC Papaverine HCl 60 mg STK-MED ONCE .ROUTE ; Start 08/31/21 at 10:50; Stop 08/31/21 at 10:50; Status DC Thrombin 20,000 unit STK-MED ONCE TP ; Start 08/31/21 at 10:50; Stop 08/31/21 at 10:50; Status DC Phenylephrine HCl (PHENYLEPHRINE in 0.9% NACL PF) 1 mg STK-MED ONCE IV ; Start 08/31/21 at 11:46; Stop 08/31/21 at 11:47; Status DC Hydromorphone HCl (Dilaudid) 2 mg STK-MED ONCE .ROUTE ; Start 08/31/21 at 13:02; Stop 08/31/21 at 13:03; Status DC Sterile Water 10 ml @ As Directed STK-MED ONCE IJ ; Start 08/31/21 at 13:04; Stop 08/31/21 at 13:04; Status DC Protamine Sulfate (Protamine) 50 mg STK-MED ONCE IV ; Start 08/31/21 at 15:06; Stop 08/31/21 at 15:06; Status DC Diphenhydramine HCl (Benadryl) 25 mg PRN Q6HRS PRN PO ITCHING; Start 08/31/21 at 16:15 Info (Non-Icu Electrolyte Protocol) 1 ea DAILY MC ; Start 09/01/21 at 09:00 Sodium Chloride (Normal Saline Flush) 3 ml QSHIFT PRN IV AFTER MEDS AND BLOOD DRAWS; Start 08/31/21 at 16:15 Sodium Chloride 1,000 ml @ 75 mls/hr [id number] IV Last administered on 09/02/21at 22:32; Start 08/31/21 at 16:15 Acetaminophen/ Hydrocodone Bitart (Lortab 5/325) 1 tab PRN Q4HRS PRN PO MILD PAIN 1-3; Start 08/31/21 at 16:15; Stop 08/31/21 at 20:23; Status DC Acetaminophen/ Hydrocodone Bitart (Lortab 5/325) 2 tab PRN Q4HRS PRN PO MODERATE PAIN, SEVERE PAIN; Start 08/31/21 at 16:15; Stop 08/31/21 at 20:23; Status DC Oxycodone/ Acetaminophen (Percocet 5/325) 1 tab PRN Q4HRS PRN PO MILD PAIN, 2ND CHOICE; Start 08/31/21 at 16:15; Status Cancel Acetaminophen (Tylenol) 650 mg PRN Q6HRS PRN PO Headaches, Temp > 101.5F; Start 08/31/21 at 16:15; Status Cancel Morphine Sulfate (Morphine Sulfate) 2 mg PRN Q2HR PRN IV PAIN Last administered on 08/31/21at 22:42; Start 08/31/21 at 16:15 Naloxone HCl (Narcan) 0.4 mg PRN Q2MIN PRN IV SEE INSTRUCTIONS; Start 08/31/21 at 16:15 Sodium Chloride 1,000 ml @ 25 mls/hr Q24H IV ; Start 08/31/21 at 16:15; Stop 08/31/21 at 20:23; Status DC Docusate Sodium (Colace) 100 mg BID PO Last administered on 09/01/21at 21:04; Start 08/31/21 at 21:00 Ondansetron HCl (Zofran) 4 mg PRN Q6HRS PRN IVP NAUESA, 1ST CHOICE; Start 08/31/21 at 16:15; Stop 08/31/21 at 20:23; Status DC Vancomycin HCl (Vanco Per Pharmacy) 1 each PRN DAILY PRN MC SEE COMMENTS Last administered on 09/01/21at 13:41; Start 08/31/21 at 16:15; Stop 09/01/21 at 13:45; Status DC Piperacillin Sod/ Tazobactam Sod (Zosyn Per Pharmacy) 1 each PRN DAILY PRN MC SEE COMMENTS; Start 08/31/21 at 16:15; Stop 09/02/21 at 14:19; Status DC Amlodipine Besylate (Norvasc) 10 mg DAILY PO Last administered on 09/03/21at 08:41; Start 09/01/21 at 09:00 Clopidogrel Bisulfate (Plavix) 75 mg DAILY PO Last administered on 09/03/21at 08:40; Start 09/01/21 at 09:00 Duloxetine HCl (Cymbalta) 30 mg DAILY PO Last administered on 09/03/21at 08:40; Start 09/01/21 at 09:00 Gabapentin (Neurontin) 300 mg TID PO Last administered on 09/03/21at 08:40; Start 08/31/21 at 21:00 Lisinopril (Prinivil) 40 mg DAILY PO Last administered on 09/03/21at 08:41; Start 09/01/21 at 09:00 Pantoprazole Sodium (Protonix) 40 mg DAILYAC PO Last administered on 09/03/21at 05:28; Start 09/01/21 at 07:30 Trazodone HCl (Desyrel) 50 mg HS PO Last administered on 09/02/21at 21:41; Start 08/31/21 at 21:00 Linagliptin (Tradjenta) 5 mg DAILY PO Last administered on 09/03/21at 08:40; Start 09/01/21 at 09:00 Insulin Glargine (Lantus Syringe) 10 unit QHS SQ Last administered on 09/02/21at 21:43; Start 08/31/21 at 21:00 Insulin Human Lispro (HumaLOG) 0-7 UNITS TIDWMEALS SQ Last administered on 09/03/21at 08:44; Start 09/01/21 at 08:00 Dextrose (Dextrose 50%-Water Syringe) 12.5 gm PRN Q15MIN PRN IV SEE COMMENTS; Start 08/31/21 at 17:45; Status UNV Dextrose (Iv Dextrose 5%) 250 ml PRN Q15MIN PRN IV SEE COMMENTS; Start 08/31/21 at 17:45 Piperacillin Sod/ Tazobactam Sod 3.375 gm/Sodium Chloride 50 ml @ 100 mls/hr Q6HRS IV Last administered on 09/02/21at 12:08; Start 08/31/21 at 18:00; Stop 09/02/21 at 14:07; Status DC Ondansetron HCl (Zofran) 4 mg PRN Q6HRS PRN IVP NAUSEA/VOMITING; Start 08/31/21 at 17:45 Al Hydroxide/Mg Hydroxide (Mylanta Plus Xs) 30 ml PRN Q3HRS PRN PO HEARTBURN / GAS; Start 08/31/21 at 17:45 Calcium Carbonate/ Glycine (Tums) 500 mg PRN Q3HRS PRN PO UPSET STOMACH; Start 08/31/21 at 17:45 Zolpidem Tartrate (Ambien) 5 mg PRN QHS PRN PO INSOMNIA, MAY REPEAT IN 1HR; Start 08/31/21 at 17:45 Oxycodone HCl (Roxicodone) 5 mg PRN Q3HRS PRN PO BREAKTHROUGH PAIN; Start 08/31/21 at 17:45 Acetaminophen/ Hydrocodone Bitart (Lortab 5/325) 1 tab PRN Q4HRS PRN PO MILD PAIN 1-3; Start 08/31/21 at 17:45 Acetaminophen/ Hydrocodone Bitart (Lortab 5/325) 2 tab PRN Q4HRS PRN PO MODERATE PAIN, SEVERE PAIN Last administered on 09/02/21at 12:13; Start 08/31/21 at 17:45 Oxycodone/ Acetaminophen (Percocet 5/325) 1 tab PRN Q4HRS PRN PO MILD PAIN, 2ND CHOICE; Start 08/31/21 at 17:45 Oxycodone/ Acetaminophen (Percocet 5/325) 2 tab PRN Q4HRS PRN PO MODERATE PAIN, SEVERE PAIN Last administered on 09/03/21at 09:18; Start 08/31/21 at 17:45 Acetaminophen (Tylenol) 650 mg PRN Q6HRS PRN PO Headaches, Temp > 101.5F; Start 08/31/21 at 17:45 Heparin Sodium (Porcine) (Heparin Sodium) 5,000 unit Q8HRS SQ Last administered on 09/03/21at 05:29; Start 09/01/21 at 06:00 Nicotine (Nicoderm Cq 21mg) 1 patch PRN DAILY PRN TD SMOKING CESSATION Last administered on 09/02/21at 21:41; Start 08/31/21 at 18:00 Nicotine (Nicoderm Cq 14mg) 1 patch PRN DAILY PRN TD SMOKING CESSATION; Start 08/31/21 at 18:00 Vancomycin HCl 1.25 gm/Sodium Chloride 250 ml @ 166.667 mls/hr 1X ONCE IV Last administered on 08/31/21at 21:38; Start 08/31/21 at 20:00; Stop 08/31/21 at 21:29; Status DC Vancomycin HCl 1 gm/Sodium Chloride 250 ml @ 250 mls/hr Q24H IV ; Start 09/01/21 at 21:00; Stop 09/01/21 at 13:43; Status DC Vancomycin HCl (Vancomycin Trough Level) 1 each 1X ONCE MC ; Start 09/02/21 at 20:30; Stop 09/01/21 at 13:45; Status DC Lactobacillus Rhamnosus (Culturelle) 1 cap BID PO Last administered on 08/07 01/27at 08:40; Start 09/01/21 at 21:00 Magnesium Sulfate 50 ml @ 25 mls/hr 1X ONCE IV Last administered on 09/01/21at 17:30; Start 09/01/21 at 17:00; Stop 09/01/21 at 18:59; Status DC Tigecycline 50 mg/ Dextrose 50 ml @ 100 mls/hr Q12HR IV Last administered on 09/03/21at 08:42; Start 09/02/21 at 21:00 Tigecycline 100 mg/Dextrose 100 ml @ 200 mls/hr 1X ONCE IV Last administered on 09/02/21at 15:48; Start 09/02/21 at 15:00; Stop 09/02/21 at 15:29; Status DC Diclofenac Sodium (Voltaren) 1 priyanka PRN BID PRN TP PAIN Last administered on 09/03/21at 03:05; Start 09/02/21 at 16:15 Ferrous Sulfate (Feosol) 325 mg DAILYWBKFT PO Last administered on 09/03/21at 08:40; Start 09/03/21 at 08:00 Active Scripts Active Reported Clopidogrel (Clopidogrel Bisulfate) 75 Mg Tablet 75 Mg PO DAILY Trazodone Hcl 50 Mg Tablet 50 Mg PO HS Cymbalta (Duloxetine Hcl) 30 Mg Capsule.dr 30 Mg PO DAILY Lisinopril 40 Mg Tablet 1 Tab PO DAILY Amlodipine Besylate 10 Mg Tablet 10 Mg PO DAILY Januvia (Sitagliptin Phosphate) 100 Mg Tablet 1 Tab PO DAILY Protonix (Pantoprazole Sodium) 40 Mg Tablet.dr 40 Mg PO DAILYAC Gabapentin (Gabapentin) 300 Mg Capsule 300 Mg PO TID Metformin Hcl Er (Metformin Hcl) 500 Mg Tab.er.24h 500 Mg PO DAILYWBKFT Vitals/I & O Vital Sign - Last 24 Hours 09/02/21 09/02/21 09/02/21 09/02/21 11:16 12:13 13:41 15:00 Temp 97.0 98.1 97.0 98.1 Pulse 73 68 Resp 16 17 B/P (MAP) 124/57 (79) 118/59 (78) Pulse Ox 96 96 96 98 O2 Delivery Room Air Room Air Room Air Room Air O2 Flow Rate 10.0 10.0 09/02/21 09/02/21 09/02/21 09/02/21 19:00 19:30 21:41 22:11 Temp 97.8 97.8 Pulse 86 Resp 18 18 18 B/P (MAP) 162/72 (102) Pulse Ox 97 97 97 O2 Delivery Room Air Room Air Room Air Room Air 09/02/21 09/03/21 09/03/21 09/03/21 22:59 02:36 03:05 03:35 Temp 98.6 98.8 98.6 98.8 Pulse 98 93 Resp 16 17 16 16 B/P (MAP) 180/73 (108) 176/75 (108) Pulse Ox 95 96 96 96 O2 Delivery Room Air Room Air Room Air Room Air O2 Flow Rate 10.0 09/03/21 09/03/21 09/03/21 09/03/21 08:41 08:41 09:18 09:59 Pulse 97 99 B/P (MAP) 180/78 180/40 Pulse Ox 96 96 O2 Delivery Room Air Room Air O2 Flow Rate 10.0 10.0 Intake and Output 09/02/21 09/02/21 09/03/21 15:00 23:00 07:00 Output Total 851 ml 1400 ml Balance -851 ml -1400 ml Justifications for Admission Other Justification PARTH WATTS MD Sep 03, 2021 10:39
[2021-09-03 11:00] VITALS: BP 160/70
--- NOTE | 2021-09-03 11:45 | NUR ---
SS following up with discharge planning. SS reviewed pt chart and discussed with pt RN. Pt is currently on room air. COVID19 negative. Pt on IV Tigecycline. Wound Vac in place. PT/OT recommended acute rehabilitation. Pt accepted at [facility], ; fax [phone], pending insurance approval. Facility reported that they cannot provide IV Tigecycline due to cost. Physician notified. SS will continue to follow for discharge planning.
--- NOTE | 2021-09-03 12:30 | PDOC ---
Infectious Disease Note Subjective Subjective Patient is feeling okay Vital Sign Vital Signs Vital Signs Date Time Temp Pulse Resp B/P (MAP) Pulse Ox O2 Delivery O2 Flow Rate FiO2 09/03/21 09:59 96 Room Air 10.0 09/03/21 08:41 99 180/40 09/03/21 07:00 98.3 17 98.3 Physical Exam PHYSICAL EXAM GENERAL: Alert, oriented female, not in distress. VITAL SIGNS: Stable. HEENT: Both pupils are round and reacting. No conjunctival lesion. No lesion in the mouth. NECK: Supple, no JVP, no lymphadenopathy. LUNGS: Clear. HEART: S1, S2, regular. ABDOMEN: Soft, nontender, no organomegaly. EXTREMITIES: No edema or cyanosis. SKIN: Unremarkable. NEUROLOGIC: The patient is neurologically alert, awake, and appropriate. No focal neurologic deficit. Her left foot amputation site looks healthy, clean; reviewed. Labs Lab Laboratory Tests Test 09/02/21 16:22 09/02/21 21:20 09/03/21 04:15 09/03/21 07:29 Glucose (Fingerstick) 211 mg/dL (70-99) 160 mg/dL (70-99) 157 mg/dL (70-99) White Blood Count 11.1 x10^3/uL (4.0-11.0) Red Blood Count 3.20 x10^6/uL (3.50-5.40) Hemoglobin 9.0 g/dL (12.0-15.5) Hematocrit 27.7 % (36.0-47.0) Mean Corpuscular Volume 86 fL (79-100) Mean Corpuscular Hemoglobin 28 pg (25-35) Mean Corpuscular Hemoglobin Concent 33 g/dL (31-37) Red Cell Distribution Width 14.9 % (11.5-14.5) Platelet Count 418 x10^3/uL (140-400) Test 09/03/21 11:50 Glucose (Fingerstick) 148 mg/dL (70-99) Micro GRAM STAIN-AER DESEAN Final PMNS (WBCS): RARE SQUAMOUS EPI CELL: RARE GRAM NEGATIVE RODS: MANY GRAM POS COCCI: MANY Testing performed by [address] [id number] director of publications: Lanny Wong MD CULTURE ANAEROBIC/AEROBIC Preliminary MIXED AEROBIC KATHLEEN ISOLATED INCLUDING: MANY STAPHYLOCOCCUS AUREUS MANY ENTEROCOCCUS FAECALIS MANY STREPTOCOCCUS ANGINOSUS RARE ACINETOBACTER PITTII Testing performed by [address] [id number] director of publications: Lanny Wong MD Objective Assessment IMPRESSION: 1. Left big toe gangrene, status post open ray amputation. 2. Left peripheral arterial disease, status post left leg bypass. 3. Diabetes mellitus. 4. Hypertension. 5. Gastroesophageal reflux disease. Plan Plan of Care JEFFREY Bonilla MD Sep 03, 2021 12:30
[2021-09-03] MEDS: IV NORMAL SALINE 1000ML BAG 1,000 ML IV SCH (13:15)
--- NOTE | 2021-09-03 13:26 | PDOC ---
[employer] PROGRESS NOTE Date of Service DOS: DATE: 09/03/21 TIME: 13:24 Chief Complaint Chief Complaint S/P femoral endarterectomy S/P left common femoral artery to tibial peroneal artery bypass using greater saphenous vein S/P left leg great saphenous vein harvest S/P left first toe open ray amputation including resection of the metatarsal head PVD DM2 GERD History of Present Illness History of Present Illness 09/03: Patient seen and evaluated. She reports pain in the left lower extremity, 12/15. Vascular surgery following. Continue antibiotics, per ID. 09/02: Patient seen and evaluated bedside. S/P femoral endarterectomy and left first toe amputation. Wound VAC in place to left foot. States her pain increases at night. Reminded patient that she has higher strength options for pain management if she needs them. Wound cultures growing staph, Enterococcus, strep, and actinobacter. We will continue to follow cultures for sensitivities. Will order oral iron. Discussed with RN. Vitals/I&O Vitals/I&O: Vital Signs Date Time Temp Pulse Resp B/P (MAP) Pulse Ox O2 Delivery O2 Flow Rate FiO2 09/03/21 09:59 96 Room Air 10.0 09/03/21 08:41 99 180/40 09/03/21 07:00 98.3 17 98.3 I & O 09/02/21 09/02/21 09/03/21 15:00 23:00 07:00 Output Total 851 ml 1400 ml Balance -851 ml -1400 ml Physical Exam Physical Exam: GENERAL: Alert, oriented female, not in distress. VITAL SIGNS: Stable. HEENT: Both pupils are round and reacting. No conjunctival lesion. No lesion in the mouth. NECK: Supple, no JVP, no lymphadenopathy. LUNGS: Clear. HEART: S1, S2, regular. ABDOMEN: Soft, nontender, no organomegaly. EXTREMITIES: No edema or cyanosis. SKIN: Unremarkable. NEUROLOGIC: The patient is neurologically alert, awake, and appropriate. No focal neurologic deficit. Her left foot amputation site looks healthy, clean; reviewed. General: Alert, Oriented X3, Cooperative, No acute distress Heart: Regular rate Lungs: Clear Abdomen: Soft, No tenderness Extremities: Other (Left medial leg incisions intact. No erythema or fluctuance. Minimal edema. Wound VAC in place over left foot and toe amputation site. Good biphasic Doppler signal in left posterior tibial artery) Labs Labs: Laboratory Tests Test 09/02/21 16:22 09/02/21 21:20 09/03/21 04:15 09/03/21 07:29 Glucose (Fingerstick) 211 mg/dL (70-99) 160 mg/dL (70-99) 157 mg/dL (70-99) White Blood Count 11.1 x10^3/uL (4.0-11.0) Red Blood Count 3.20 x10^6/uL (3.50-5.40) Hemoglobin 9.0 g/dL (12.0-15.5) Hematocrit 27.7 % (36.0-47.0) Mean Corpuscular Volume 86 fL (79-100) Mean Corpuscular Hemoglobin 28 pg (25-35) Mean Corpuscular Hemoglobin Concent 33 g/dL (31-37) Red Cell Distribution Width 14.9 % (11.5-14.5) Platelet Count 418 x10^3/uL (140-400) Test 09/03/21 11:50 Glucose (Fingerstick) 148 mg/dL (70-99) Comment Review of Relevant I have reviewed the following items ted (where applicable) has been applied. Medications: Current Medications Medications (Trade) Dose Ordered Sig/Primitivo Route PRN Reason Start Time Stop Time Status Last Admin Dose Admin Tigecycline 50 mg/ Dextrose 50 ml @ 100 mls/hr Q12HR IV 09/02/21 21:00 09/03/21 08:42 Tigecycline 100 mg/Dextrose 100 ml @ 200 mls/hr 1X ONCE IV 09/02/21 15:00 09/02/21 15:29 DC 09/02/21 15:48 Diclofenac Sodium (Voltaren) 1 priyanka PRN BID PRN TP PAIN 09/02/21 16:15 09/03/21 03:05 Ferrous Sulfate (Feosol) 325 mg DAILYWBKFT PO 09/03/21 08:00 09/03/21 08:40 Justifications for Admission Other Justification STEFANI MIGUEL MD Sep 03, 2021 13:26
[2021-09-03 15:00] VITALS: BP 143/66
[2021-09-03 19:00] VITALS: BP 161/70
[2021-09-03] MEDS ORDERED: GABAPENTIN 100 MG CAPSULE. PO SCH (20:30)
[2021-09-03] MEDS: INSULIN GLARGINE SYRINGE. SQ SCH (21:00)
[2021-09-03] MEDS: traZODone 50 MG TABLET. PO SCH (21:00)
[2021-09-03] MEDS: NICOTINE 21MG PATCH. TD PRN (22:00)
[2021-09-03 23:00] VITALS: BP 176/76
[2021-09-03] MEDS ORDERED: traZODone 50 MG TABLET. PO PRN (23:30)
[2021-09-04 02:48] VITALS: BP 142/64
[2021-09-04] MEDS: PANTOPRAZOLE 40 MG TABLET.DR. PO SCH (06:04)
[2021-09-04] MEDS: HEPARIN for SUB-Q USE 5,000 UNIT/ML VIAL. SQ SCH ×3 (06:06→21:13)
[2021-09-04 07:00] VITALS: BP 192/77
[2021-09-04] MEDS: INSULIN LISPRO 300 UNITS/3 ML VIAL. SQ SCH ×3 (08:00→17:00)
[2021-09-04] MEDS: LINAGLIPTIN 5 MG TABLET PO SCH (08:37)
[2021-09-04] MEDS: CLOPIDOGREL BISULFATE 75 MG TABLET PO SCH (08:37)
[2021-09-04] MEDS: LISINOPRIL 20 MG TABLET PO SCH (08:37)
[2021-09-04] MEDS: GABAPENTIN 300 MG CAPSULE. PO SCH ×4 (08:37→21:12)
[2021-09-04] MEDS: LACTOBACILLUS RHAMNOSUS GG 1 CAPSULE. PO SCH ×3 (08:38→21:12)
[2021-09-04] MEDS: FERROUS SULFATE 325 MG TABLET. PO SCH (08:38)
[2021-09-04] MEDS: DULoxetine HCL 30 MG CAPSULE.DR PO SCH (08:38)
[2021-09-04] MEDS: ELECTROLYTE (NON-ICU) PROTOCOL. MC SCH (08:46)
[2021-09-04] MEDS: DOCUSATE SODIUM 100 MG CAPSULE. PO SCH ×2 (08:46→21:13)
[2021-09-04] MEDS ORDERED: hydrALAZINE 20 MG/ML VIAL. IVP PRN (09:30)
[2021-09-04] MEDS ORDERED: LABETALOL 20 MG/4 ML DISP.SYRIN. IVP PRN (09:30)
--- NOTE | 2021-09-04 09:35 | PDOC ---
[employer] PROGRESS NOTE Date of Service DOS: DATE: 09/04/21 TIME: 09:32 Chief Complaint Chief Complaint S/P femoral endarterectomy S/P left common femoral artery to tibial peroneal artery bypass using greater saphenous vein S/P left leg great saphenous vein harvest S/P left first toe open ray amputation including resection of the metatarsal head PVD DM2 GERD History of Present Illness History of Present Illness 09/04: Patient seen and evaluated. No complaints, states she feels tired. Left lower extremity pain controlled with medications. Blood pressure elevated this morning; will add IV palpation medications. Continue IV antibiotics. She has b een accepted at [facility], pending insurance approval. Of note, facility cannot provide IV tigecycline. . 09/03: Patient seen and evaluated. She reports pain in the left lower extremity, 12/15. Vascular surgery following. Continue antibiotics, per ID. 09/02: Patient seen and evaluated bedside. S/P femoral endarterectomy and left first toe amputation. Wound VAC in place to left foot. States her pain increases at night. Reminded patient that she has higher strength options for pain management if she needs them. Wound cultures growing staph, Enterococcus, strep, and actinobacter. We will continue to follow cultures for sensitivities. Will order oral iron. Discussed with RN. Vitals/I&O Vitals/I&O: Vital Signs Date Time Temp Pulse Resp B/P (MAP) Pulse Ox O2 Delivery O2 Flow Rate FiO2 09/04/21 08:37 78 192/77 09/04/21 07:00 97.5 18 97 Room Air 97.5 09/03/21 16:41 10.0 I & O 09/03/21 09/03/21 09/04/21 15:00 23:00 07:00 Intake Total 140 ml Output Total 1350 ml Balance -1210 ml Physical Exam Physical Exam: GENERAL: Alert, oriented female, not in distress. VITAL SIGNS: Stable. HEENT: Both pupils are round and reacting. No conjunctival lesion. No lesion in the mouth. NECK: Supple, no JVP, no lymphadenopathy. LUNGS: Clear. HEART: S1, S2, regular. ABDOMEN: Soft, nontender, no organomegaly. EXTREMITIES: No edema or cyanosis. SKIN: Unremarkable. NEUROLOGIC: The patient is neurologically alert, awake, and appropriate. No focal neurologic deficit. Her left foot amputation site looks healthy, clean; reviewed. General: Alert, Oriented X3, Cooperative, No acute distress Heart: Regular rate Lungs: Clear Abdomen: Soft, No tenderness Extremities: Other (Left medial leg incisions intact. No erythema or fluctuance. Minimal edema. Wound VAC in place over left foot and toe amputation site. Good biphasic Doppler signal in left posterior tibial artery) Skin: No rashes Labs Labs: Laboratory Tests Test 09/03/21 11:50 09/03/21 16:31 09/04/21 07:16 Glucose (Fingerstick) 148 mg/dL (70-99) 156 mg/dL (70-99) 73 mg/dL (70-99) Comment Review of Relevant I have reviewed the following items ted (where applicable) has been applied. Justifications for Admission Other Justification STEFANI MIGUEL MD Sep 04, 2021 09:35
[2021-09-04] MEDS: TIGECYCLINE 50 MG in IV DEXTROSE 5% 50 ML IV SCH ×2 (10:22→21:13)
--- NOTE | 2021-09-04 10:46 | PDOC ---
Provider Note Date of Service: DATE: 09/04/21 TIME: 10:42 Provider Note Provider Note No acute events. Reports some discomfort in the left lower extremity which is improved with movement. Denies complaints otherwise. Alert and oriented no acute distress Regular rate and rhythm, nonlabored respiration Left lower extremity with groin incision and medial leg incision intact without evidence of erythema or induration, strong left PT signal, wound VAC in place to the right open toe amputation site, no surrounding erythema or induration 61-year-old female status post left femoral to tibioperoneal trunk bypass with nonreversed left great saphenous vein, and left foot debridement, recovering jorge alberto l. Continue work with physical therapy. Patient is adamant that she does not want a go to placement. Justicifation of Admission Dx: Justifications for Admission: Justification of Admission Dx: Yes YULISA JENSEN DO Sep 04, 2021 10:46
[2021-09-04 11:00] VITALS: BP 189/75
[2021-09-04] MEDS ORDERED: POTASSIUM CHLORIDE 20 MEQ TABLET.ER. PO ONE (11:30)
[2021-09-04] MEDS ORDERED: ALPRAZolam 1 MG TABLET PO ONE (12:30)
[2021-09-04 15:00] VITALS: BP 180/81
--- NOTE | 2021-09-04 16:08 | PDOC ---
Infectious Disease Note Subjective: Subjective Patient is resting quietly. States feels okay. Postop site pain is under control. Denies any fever, nausea, vomiting, diarrhea. Vital Signs: Vital Signs Vital Signs Date Time Temp Pulse Resp B/P (MAP) Pulse Ox O2 Delivery O2 Flow Rate FiO2 09/04/21 11:00 98.6 78 18 189/75 (113) 96 Room Air 98.6 09/03/21 16:41 10.0 Physical Exam: PHYSICAL EXAM GENERAL: Alert, oriented female, not in distress. VITAL SIGNS: Stable. HEENT: Both pupils are round and reacting. No conjunctival lesion. No lesion in the mouth. NECK: Supple, no JVP, no lymphadenopathy. LUNGS: Clear. HEART: S1, S2, regular. ABDOMEN: Soft, nontender, no organomegaly. EXTREMITIES: No edema or cyanosis. SKIN: Unremarkable. NEUROLOGIC: The patient is neurologically alert, awake, and appropriate. No focal neurologic deficit. Her left foot amputation site looks healthy, clean; reviewed. Medications: Inpatient Meds: Medications reviewed. Labs: Lab Laboratory Tests Test 09/03/21 16:31 09/04/21 07:16 09/04/21 10:59 Glucose (Fingerstick) 156 mg/dL (70-99) 73 mg/dL (70-99) 108 mg/dL (70-99) Micro SPEC #: [id number] EMILEE: 08/31/21 STATUS: RES REQ #: [id number] RECD: 09/01/[address] [facility] [address]: WILMER MCALLISTER MD SOURCE: FOOT ENTR: 09/01/21 [facility] DR: ELOISA CHATMAN [facility] MARIO GONZALEZ MD ORDERED: DESEAN/AEROBIC CUL COMMENTS: LEFT TOE ABSCESS Procedure Result GRAM STAIN-AER DESEAN Final PMNS (WBCS): MANY SQUAMOUS EPI CELL: NONE SEEN GRAM NEGATIVE RODS: MODERATE GRAM POS RODS: FEW GRAM POS COCCI: MANY CULTURE ANAEROBIC/AEROBIC Preliminary MIXED AEROBIC KATHLEEN ISOLATED INCLUDING: MANY ENTEROCOCCUS FAECALIS MANY EIKENELLA CORRODENS FEW STAPHYLOCOCCUS AUREUS (MRSA) FEW ACINETOBACTER PITTII MANY STREPTOCOCCUS ANGINOSUS MODERATE PREVOTELLA MELANINOGENICA [place] [address] [employer] director: Lanny Wong MD Organism 1 ENTEROCOCCUS FAECALIS Organism 2 EIKENELLA CORRODENS Organism 3 STAPHYLOCOCCUS AUREUS (MRSA) Organism 4 ACINETOBACTER PITTII Organism 5 STREPTOCOCCUS ANGINOSUS Organism 6 PREVOTELLA MELANINOGENICA 3. STAPHYLOCOCCUS AUREUS (MRSA) Target Route Dose RX AB Cost M.I.C. IQ ------ ----- ------ -- ------ --------- ------ AZITHROMYCIN R >4 DAPTOMYCIN S <=0.5 VANCOMYCIN S 1 CEFTAROLINE S <=0.5 IND CLINDAMYCIN POS >4/0.5 TRIMETH/SULFA S <=0.5/9.5 LEVOFLOXACIN R >4 RUN DATE: 09/04/21 [facility] *LIVE* PAGE 2 RUN TIME: 1306 Specimen Inquiry SPEC: [id number] PATIENT: BETH KEYS [id number] (Continued) Procedure Result CONTINUED ON NEXT PAGE RUN DATE: 09/04/21 [facility] *LIVE* PAGE 3 RUN TIME: 8865 Specimen Inquiry SPEC: [id number] PATIENT: BETH KEYS [id number] (Continued) --------- --- Procedure Result CULTURE ANAEROBIC/AEROBIC Preliminary (continued) 3. STAPHYLOCOCCUS AUREUS (MRSA) (continued) Target Route Dose RX AB Cost M.I.C. IQ ------ ----- ------ -- ------ --------- ------ * CLINDAMYCIN R <=0.25 LINEZOLID S 4 ERYTHROMYCIN R >4 PENICILLIN R >2 TETRACYCLINE S <=4 RIFAMPIN S <=1 OXACILLIN R >2 GENTAMICIN S <=4 Objective: Assessment: 1. Left big toe gangrene, status post open ray amputation.Polymicrobial organisms as above 2. Left peripheral arterial disease, status post left leg bypass. 3. Diabetes mellitus. 4. Hypertension. 5. Gastroesophageal reflux disease. Cultures positive for MANY STAPHYLOCOCCUS AUREUS MANY ENTEROCOCCUS FAECALIS MANY STREPTOCOCCUS ANGINOSUS RARE ACINETOBACTER PITTII MODERATE EIKENELLA CORRODENS MANY PREVOTELLA MELANINOGENICA Plan: Plan of Care Limited choices for this patient for antibiotic treatment as intraoperative cult ures has polymicrobial organisms Micro lab did not report susceptibilities for all of the above microorganisms except for MRSA Continue tigecycline Local wound care as directed offload ELOISA CHATMAN MD Sep 04, 2021 16:08
--- NOTE | 2021-09-04 19:30 | NUR ---
Pt in bed assessment completed vss pt drowsy but able to state her name and able to state where she is, pt unable to keep her eyes open. call light in reach bed alarm set will resume care and continue to monitor pt.
[2021-09-04 19:37] VITALS: BP 172/76
[2021-09-04] MEDS: NICOTINE 21MG PATCH. TD PRN (21:12)
[2021-09-04] MEDS: traZODone 50 MG TABLET. PO SCH (21:14)
[2021-09-04] MEDS: INSULIN GLARGINE SYRINGE. SQ SCH (21:14)
--- NOTE | 2021-09-04 22:03 | NUR ---
Pt hs oral medications held due to pt drowsiness will monitor pt.Pt daughter update on pt status via phone.
[2021-09-04 22:49] VITALS: BP 185/80
[2021-09-05 03:09] VITALS: BP 146/70
[2021-09-05] MEDS: HEPARIN for SUB-Q USE 5,000 UNIT/ML VIAL. SQ SCH ×3 (05:31→21:53)
[2021-09-05 07:00] VITALS: BP 140/66
[2021-09-05] MEDS: INSULIN LISPRO 300 UNITS/3 ML VIAL. SQ SCH ×3 (08:00→17:00)
[2021-09-05] MEDS: ELECTROLYTE (NON-ICU) PROTOCOL. MC SCH (09:00)
--- NOTE | 2021-09-05 09:30 | NUR ---
PT MORE ALERT AT THIS TIME. ABLE TO ANSWER ORIENTATION QUESTIONS AND MAINTAIN WAKEFULNESS. PO MEDICATIONS ADMINISTERED AT THIS TIME. PT ASKS QUESTIONS REGARDING EACH MEDICATION, SHE WANTS TO MAKE SURE SHE "DOESN'T GET THAT PILL FROM YESTERDAY" THAT IT "KNOCKED ME OUT ALL NIGHT." EACH PILL OPENED IN FRONT OF PT, AND EXPLAINED NAME AND USE.
[2021-09-05] MEDS: PANTOPRAZOLE 40 MG TABLET.DR. PO SCH (09:35)
[2021-09-05] MEDS: FERROUS SULFATE 325 MG TABLET. PO SCH (09:35)
[2021-09-05] MEDS: GABAPENTIN 300 MG CAPSULE. PO SCH ×3 (09:35→21:44)
[2021-09-05] MEDS: DULoxetine HCL 30 MG CAPSULE.DR PO SCH (09:36)
[2021-09-05] MEDS: LACTOBACILLUS RHAMNOSUS GG 1 CAPSULE. PO SCH ×2 (09:36→21:44)
[2021-09-05] MEDS: DOCUSATE SODIUM 100 MG CAPSULE. PO SCH ×2 (09:36→21:00)
[2021-09-05] MEDS: CLOPIDOGREL BISULFATE 75 MG TABLET PO SCH (09:36)
[2021-09-05] MEDS: LISINOPRIL 20 MG TABLET PO SCH (09:36)
[2021-09-05] MEDS: LINAGLIPTIN 5 MG TABLET PO SCH (09:36)
[2021-09-05] MEDS: TIGECYCLINE 50 MG in IV DEXTROSE 5% 50 ML IV SCH ×2 (10:07→21:43)
--- NOTE | 2021-09-05 10:14 | NUR ---
NON-ICU ELYTE PROTOCOL NON ADMINISTERED THIS AM, THERE ARE NOT CURRENT SUPPORTING LABS FOR ADMINISTRATION.
--- NOTE | 2021-09-05 10:30 | PDOC ---
[employer] PROGRESS NOTE Date of Service DOS: DATE: 09/05/21 TIME: : Chief Complaint Chief Complaint S/P femoral endarterectomy S/P left common femoral artery to tibial peroneal artery bypass using greater saphenous vein S/P left leg great saphenous vein harvest S/P left first toe open ray amputation including resection of the metatarsal head PVD DM2 GERD History of Present Illness History of Present Illness 09/05: Patient seen resting comfortably in bed. Wound VAC in place. She continues on tigecycline for left big toe gangrene, s/p open ray amputation with wound cultures polymicrobial. She went to discharge to SNU. Patient adamant about not wanting long-term placement. Denies nausea or vomiting. 09/04: Patient seen and evaluated. No complaints, states she feels tired. Left lower extremity pain controlled with medications. Blood pressure elevated this morning; will add IV palpation medications. Continue IV antibiotics. She has been accepted at [facility], pending insurance approval. Of note, facility cannot provide IV tigecycline. . 09/03: Patient seen and evaluated. She reports pain in the left lower extremity, 12/15. Vascular surgery following. Continue antibiotics, per ID. 09/02: Patient seen and evaluated bedside. S/P femoral endarterectomy and left first toe amputation. Wound VAC in place to left foot. States her pain increases at night. Reminded patient that she has higher strength options for pain management if she needs them. Wound cultures growing staph, Enterococcus, strep, and actinobacter. We will continue to follow cultures for sensitivities. Will order oral iron. Discussed with RN. Vitals/I&O Vitals/I&O: Vital Signs Date Time Temp Pulse Resp B/P (MAP) Pulse Ox O2 Delivery O2 Flow Rate FiO2 09/05/21 09:36 79 140/66 09/05/21 08:00 Nasal Cannula 5.0 09/05/21 07:00 97.9 20 96 97.9 I & O 09/04/21 09/04/21 09/05/21 15:00 23:00 07:00 Intake Total 170 ml 0 ml Output Total 1700 ml 600 ml Balance -1530 ml -600 ml Physical Exam Physical Exam: GENERAL: Alert, oriented female, not in distress. VITAL SIGNS: Stable. HEENT: Both pupils are round and reacting. No conjunctival lesion. No lesion in the mouth. NECK: Supple, no JVP, no lymphadenopathy. LUNGS: Clear. HEART: S1, S2, regular. ABDOMEN: Soft, nontender, no organomegaly. EXTREMITIES: No edema or cyanosis. SKIN: Unremarkable. NEUROLOGIC: The patient is neurologically alert, awake, and appropriate. No focal neurologic deficit. Her left foot amputation site looks healthy, clean; reviewed. General: Alert, Oriented X3, Cooperative, No acute distress Heart: Regular rate Lungs: Clear Abdomen: Soft, No tenderness Extremities: Other (Left medial leg incisions intact. No erythema or fluctuance. Minimal edema. Wound VAC in place over left foot and toe amputation site. Good biphasic Doppler signal in left posterior tibial artery) Skin: No rashes Labs Labs: Laboratory Tests Test 09/04/21 10:59 09/04/21 16:24 09/04/21 20:57 09/05/21 04:31 Glucose (Fingerstick) 108 mg/dL (70-99) 149 mg/dL (70-99) 163 mg/dL (70-99) 181 mg/dL (70-99) Test 09/05/21 09:22 Glucose (Fingerstick) 134 mg/dL (70-99) Comment Review of Relevant I have reviewed the following items ted (where applicable) has been applied. Medications: Current Medications Medications (Trade) Dose Ordered Sig/Primitivo Route PRN Reason Start Time Stop Time Status Last Admin Dose Admin Alprazolam (Xanax) 2 mg 1X ONCE PO 09/04/21 12:30 09/04/21 12:31 DC 09/04/21 12:25 Justifications for Admission Other Justification STEFANI MIGUEL MD September 05, 2021 10:30
[2021-09-05 11:00] VITALS: BP 170/71
[2021-09-05] MEDS ORDERED: ONDANSETRON ODT 4 MG TAB.RAPDIS. PO PRN (11:00)
--- NOTE | 2021-09-05 11:00 | NUR ---
PT REPORTS NAUSEA, ET REQUESTS NAUSEA MEDICATION. PRN ZOFRAN GIVEN AT THIS TIME. NOTABLY PT HAS HAD POOR APPETITE THUS FAR TODAY, REFUSING HER BREAKFAST.
[2021-09-05] MEDS: ONDANSETRON PF 4 MG/2 ML VIAL. IVP PRN (11:04)
--- NOTE | 2021-09-05 13:01 | PDOC ---
Infectious Disease Note Subjective: Subjective Patient has nausea and vomiting which started earlier today Denies any abdominal pain Postop site pain is under control Daughter at bedside Vital Signs: Vital Signs Vital Signs Date Time Temp Pulse Resp B/P (MAP) Pulse Ox O2 Delivery O2 Flow Rate FiO2 09/05/21 11:00 97.9 93 20 170/71 (104) 96 Room Air 97.9 09/05/21 08:00 5.0 Physical Exam: PHYSICAL EXAM GENERAL: Alert, oriented female, not in distress. VITAL SIGNS: Stable. HEENT: Both pupils are round and reacting. No conjunctival lesion. No lesion in the mouth. NECK: Supple, no JVP, no lymphadenopathy. LUNGS: Clear. HEART: S1, S2, regular. ABDOMEN: Soft, nontender, no organomegaly. EXTREMITIES: No edema or cyanosis. SKIN: Unremarkable. NEUROLOGIC: The patient is neurologically alert, awake, and appropriate. No focal neurologic deficit. Her left foot amputation site looks healthy, clean; reviewed. Medications: Inpatient Meds: Medications reviewed. Labs: Lab Laboratory Tests Test 09/04/21 16:24 09/04/21 20:57 09/05/21 04:31 09/05/21 09:22 Glucose (Fingerstick) 149 mg/dL (70-99) 163 mg/dL (70-99) 181 mg/dL (70-99) 134 mg/dL (70-99) Test 09/05/21 11:10 Glucose (Fingerstick) 141 mg/dL (70-99) Micro SPEC #: [id number] EMILEE: 08/31/21 STATUS: RES REQ #: [id number] RECD: 09/01/[address]: WILMER MCALLISTER MD SOURCE: FOOT ENTR: 09/01/[address] [facility] [address]: ELOISA CHATMAN MD SPDESC: LEFT MARIO GONZALEZ MD ORDERED: DESEAN/AEROBIC CUL COMMENTS: LEFT TOE ABSCESS Procedure Result GRAM STAIN-AER DESEAN Final PMNS (WBCS): MANY SQUAMOUS EPI CELL: NONE SEEN GRAM NEGATIVE RODS: MODERATE GRAM POS RODS: FEW GRAM POS COCCI: MANY CULTURE ANAEROBIC/AEROBIC Preliminary MIXED AEROBIC KATHLEEN ISOLATED INCLUDING: MANY ENTEROCOCCUS FAECALIS MANY EIKENELLA CORRODENS FEW STAPHYLOCOCCUS AUREUS (MRSA) FEW ACINETOBACTER PITTII MANY STREPTOCOCCUS ANGINOSUS MODERATE PREVOTELLA MELANINOGENICA [place] [address] telehealth director: Lanny Wong MD Organism 1 ENTEROCOCCUS FAECALIS Organism 2 EIKENELLA CORRODENS Organism 3 STAPHYLOCOCCUS AUREUS (MRSA) Organism 4 ACINETOBACTER PITTII Organism 5 STREPTOCOCCUS ANGINOSUS Organism 6 PREVOTELLA MELANINOGENICA 3. STAPHYLOCOCCUS AUREUS (MRSA) Target Route Dose RX AB Cost M.I.C. IQ ------ ----- ------ -- ------ --------- ------ AZITHROMYCIN R >4 DAPTOMYCIN S <=0.5 VANCOMYCIN S 1 CEFTAROLINE S <=0.5 IND CLINDAMYCIN POS >4/0.5 TRIMETH/SULFA S <=0.5/9.5 LEVOFLOXACIN R >4 RUN DATE: 09/04/21 [facility] *LIVE* PAGE 2 RUN TIME: 1306 Specimen Inquiry SPEC: [id number] PATIENT: BETH KEYS [id number] (Continued) Procedure Result CONTINUED ON NEXT PAGE RUN DATE: 09/04/21 [facility] *LIVE* PAGE 3 RUN TIME: 1306 Specimen Inquiry SPEC: [id number] PATIENT: BETH KEYS [id number] (Continued) Procedure Result CULTURE ANAEROBIC/AEROBIC Preliminary (continued) 3. STAPHYLOCOCCUS AUREUS (MRSA) (continued) Target Route Dose RX AB Cost M.I.C. IQ ------ ----- ------ -- ------ --------- ------ * CLINDAMYCIN R <=0.25 LINEZOLID S 4 ERYTHROMYCIN R >4 PENICILLIN R >2 TETRACYCLINE S <=4 RIFAMPIN S <=1 OXACILLIN R >2 GENTAMICIN S <=4 Objective: Assessment: 1. Left big toe gangrene, status post open ray amputation.Polymicrobial organisms as above 2. Left peripheral arterial disease, status post left leg bypass. 3. Diabetes mellitus. 4. Hypertension. 5. Gastroesophageal reflux disease. Nausea and vomiting Cultures positive for MANY STAPHYLOCOCCUS AUREUS MANY ENTEROCOCCUS FAECALIS MANY STREPTOCOCCUS ANGINOSUS RARE ACINETOBACTER PITTII MODERATE EIKENELLA CORRODENS MANY PREVOTELLA MELANINOGENICA Plan: Plan of Care Limited choices for this patient for antibiotic treatment as intraoperative cultures has polymicrobial organisms Micro lab did not report susceptibilities for all of the above microorganisms except for MRSA Continue tigecycline Local wound care as directed offload Continue supportive care Maintain aspiration precautions Discussed with daughter at bedside ELOISA CHATMAN MD September 05, 2021 13:01
[2021-09-05 15:00] VITALS: BP 162/70
[2021-09-05 19:23] VITALS: BP 165/76
[2021-09-05] MEDS: traZODone 50 MG TABLET. PO SCH (21:43)
[2021-09-05] MEDS: INSULIN GLARGINE SYRINGE. SQ SCH (21:54)
[2021-09-05 22:36] VITALS: BP 137/63
[2021-09-06 03:17] VITALS: BP 162/74
[2021-09-06 04:30] LABS: BASO # 0.1 x10^3/uL (0.0-0.2); BASO % 0 % (0-3); EOS # 0.2 x10^3/uL (0.0-0.7); EOS % 1 % (0-3); HEMATOCRIT 33.2 % (36.0-47.0); HEMOGLOBIN 11.1 g/dL (12.0-15.5); LYMPH # 1.6 x10^3/uL (1.0-4.8); LYMPH % 9 % (24-48); MEAN CORPUSCULAR HEMOGLOBIN 29 pg (25-35); MEAN CORPUSCULAR HGB CONC 33 g/dL (31-37); MEAN CORPUSCULAR VOLUME 85 fL (79-100); MONO % 5 % (0-9); NEUT # 15.6 x10^3/uL (1.8-7.7); NEUT % 85 % (31-73); PLATELET COUNT 575 x10^3/uL (140-400); RED BLOOD COUNT 3.88 x10^6/uL (3.50-5.40); WHITE BLOOD COUNT 18.4 x10^3/uL (4.0-11.0)
[2021-09-06 07:00] VITALS: BP 189/79
[2021-09-06] MEDS: LINAGLIPTIN 5 MG TABLET PO SCH (08:35)
[2021-09-06] MEDS: DOCUSATE SODIUM 100 MG CAPSULE. PO SCH ×2 (08:35→22:12)
[2021-09-06] MEDS: CLOPIDOGREL BISULFATE 75 MG TABLET PO SCH (08:35)
[2021-09-06] MEDS: GABAPENTIN 300 MG CAPSULE. PO SCH ×3 (08:35→22:12)
[2021-09-06] MEDS: LISINOPRIL 20 MG TABLET PO SCH (08:36)
[2021-09-06] MEDS: FERROUS SULFATE 325 MG TABLET. PO SCH (08:36)
[2021-09-06] MEDS: PANTOPRAZOLE 40 MG TABLET.DR. PO SCH (08:36)
[2021-09-06] MEDS: DULoxetine HCL 30 MG CAPSULE.DR PO SCH (08:36)
[2021-09-06] MEDS: LACTOBACILLUS RHAMNOSUS GG 1 CAPSULE. PO SCH ×2 (08:36→22:12)
[2021-09-06] MEDS: HEPARIN for SUB-Q USE 5,000 UNIT/ML VIAL. SQ SCH ×3 (08:37→22:23)
[2021-09-06] MEDS: INSULIN LISPRO 300 UNITS/3 ML VIAL. SQ SCH ×4 (08:42→17:00)
--- NOTE | 2021-09-06 08:51 | PDOC ---
Provider Note Date of Service: DATE: 09/06/21 TIME: 08:42 Provider Note Provider Note S: No acute events overnight. Pt has no complaints. Reports working with PT. Denies significant pain. WBC went up to 18 today, no fevers. O: Alert and oriented, in no acute distress Regular rhythm, slightly tachycardic, nonlabored respirations, room air Left lower extremity with groin incision with small area of incision breakdown with maceration superior corner under/in crease of pannus, no drainage or significant erythema. thigh and lower leg incisions are clean, dry and intact without evidence of erythema or induration, strong left PT signal, adequate AT signal. Wound VAC removed left foot. Wound bed is healthy throughout, wound edges clean with slight maceration on plantar surface. A/P: PAD s/p left fem-TP trunk bypass with vein and left great toe open amp - patency on exam. Doing well post operatively - continue wound vac therapy left foot, change 3xweek. - continue PT with left forefoot offloading - discussed with RN and wound care importance of keeping left groin incision c lean and dry, frequent dry gauze changes as needed, at least BID - no signs of infection along left leg surgical sites or foot wound. Continue abx per ID. - planning to go to rehab. She is ok to go from our standpoint once medically stable. Will f/u with us in 2-3 weeks. Justicifation of Admission Dx: Justifications for Admission: Justification of Admission Dx: Yes BEN BLAKE September 06, 2021 08:51
[2021-09-06] MEDS: ELECTROLYTE (NON-ICU) PROTOCOL. MC SCH (09:00)
[2021-09-06] MEDS: TIGECYCLINE 50 MG in IV DEXTROSE 5% 50 ML IV SCH ×2 (10:12→22:12)
[2021-09-06 10:18] VITALS: BP 168/70
--- NOTE | 2021-09-06 12:00 | NUR ---
PT REFUSES MEAL, NO INSULIN GIVEN AT THIS TIME. SHE REPORTS NAUSEA THE REASON. IV PRN ZOFRAN GIVEN FOR NAUSEA. REPOSITIONED ONTO (L) SIDE PER PT REQUEST. CALL LIGHT IN REACH.
[2021-09-06] MEDS: ONDANSETRON PF 4 MG/2 ML VIAL. IVP PRN (12:05)
--- NOTE | 2021-09-06 12:16 | PDOC ---
[employer] PROGRESS NOTE Date of Service DOS: DATE: 09/06/21 TIME: 12:13 Chief Complaint Chief Complaint S/P femoral endarterectomy S/P left common femoral artery to tibial peroneal artery bypass using greater saphenous vein S/P left leg great saphenous vein harvest S/P left first toe open ray amputation including resection of the metatarsal head MRSA wound infection PVD DM2 GERD History of Present Illness History of Present Illness 09/06: Afebrile. Patient is approved for [facility], pending insurance approval. Worsening leukocytosis noted. Patient has no complaints today. Will continue IV antibiotics, per ID. This may need to be changed due to cost. 09/05: Patient seen resting comfortably in bed. Wound VAC in place. She continues on tigecycline for left big toe gangrene, s/p open ray amputation with wound cultures polymicrobial. She went to discharge to SNU. Patient adamant about not wanting long-term placement. Denies nausea or vomiting. 09/04: Patient seen and evaluated. No complaints, states she feels tired. Left lower extremity pain controlled with medications. Blood pressure elevated this morning; will add IV palpation medications. Continue IV antibiotics. She has been accepted at [facility], pending insurance approval. Of note, facility cannot provide IV tigecycline. . 09/03: Patient seen and evaluated. She reports pain in the left lower extremity, 8/10. Vascular surgery following. Continue antibiotics, per ID. 09/02: Patient seen and evaluated bedside. S/P femoral endarterectomy and left first toe amputation. Wound VAC in place to left foot. States her pain increases at night. Reminded patient that she has higher strength options for pain management if she needs them. Wound cultures growing staph, Enterococcus, strep, and actinobacter. We will continue to follow cultures for sensitivities. Will order oral iron. Discussed with RN. Vitals/I&O Vitals/I&O: Vital Signs Date Time Temp Pulse Resp B/P (MAP) Pulse Ox O2 Delivery O2 Flow Rate FiO2 09/06/21 10:18 98.2 93 16 168/70 (102) 97 Room Air 98.2 09/05/21 08:00 5.0 I & O 09/05/21 09/05/21 09/06/21 15:00 23:00 07:00 Intake Total 50 ml 0 ml 0 ml Output Total 0 ml 1000 ml 775 ml Balance 50 ml -1000 ml -775 ml Physical Exam Physical Exam: GENERAL: Alert, oriented female, not in distress. VITAL SIGNS: Stable. HEENT: Both pupils are round and reacting. No conjunctival lesion. No lesion in the mouth. NECK: Supple, no JVP, no lymphadenopathy. LUNGS: Clear. HEART: S1, S2, regular. ABDOMEN: Soft, nontender, no organomegaly. EXTREMITIES: No edema or cyanosis. SKIN: Unremarkable. NEUROLOGIC: The patient is neurologically alert, awake, and appropriate. No focal neurologic deficit. Her left foot amputation site looks healthy, clean; reviewed. General: Alert, Oriented X3, Cooperative, No acute distress Heart: Regular rate Lungs: Clear Abdomen: Soft, No tenderness Extremities: Other (Left medial leg incisions intact. No erythema or fluctuance. Minimal edema. Wound VAC in place over left foot and toe amputation site. Good biphasic Doppler signal in left posterior tibial artery) Skin: No rashes Labs Labs: Laboratory Tests Test 09/05/21 20:10 09/06/21 03:25 09/06/21 07:45 09/06/21 11:47 Glucose (Fingerstick) 169 mg/dL (70-99) 207 mg/dL (70-99) 167 mg/dL (70-99) White Blood Count 18.4 x10^3/uL (4.0-11.0) Red Blood Count 3.88 x10^6/uL (3.50-5.40) Hemoglobin 11.1 g/dL (12.0-15.5) Hematocrit 33.2 % (36.0-47.0) Mean Corpuscular Volume 85 fL (79-100) Mean Corpuscular Hemoglobin 29 pg (25-35) Mean Corpuscular Hemoglobin Concent 33 g/dL (31-37) Red Cell Distribution Width 16.0 % (11.5-14.5) Platelet Count 575 x10^3/uL (140-400) Neutrophils (%) (Auto) 85 % (31-73) Lymphocytes (%) (Auto) 9 % (24-48) Monocytes (%) (Auto) 5 % (0-9) Eosinophils (%) (Auto) 1 % (0-3) Basophils (%) (Auto) 0 % (0-3) Neutrophils # (Auto) 15.6 x10^3/uL (1.8-7.7) Lymphocytes # (Auto) 1.6 x10^3/uL (1.0-4.8) Monocytes # (Auto) 1.0 x10^3/uL (0.0-1.1) Eosinophils # (Auto) 0.2 x10^3/uL (0.0-0.7) Basophils # (Auto) 0.1 x10^3/uL (0.0-0.2) Comment Review of Relevant I have reviewed the following items ted (where applicable) has been applied. Justifications for Admission Other Justification STEFANI MIGUEL MD September 06, 2021 12:15
--- NOTE | 2021-09-06 12:36 | PDOC ---
Infectious Disease Note Subjective: Subjective Patient feels a little better Less nausea and vomiting Denies any fever Denies any shortness of breath or cough Denies any abdominal pain Postop site pain is under control Vital Signs: Vital Signs Vital Signs Date Time Temp Pulse Resp B/P (MAP) Pulse Ox O2 Delivery O2 Flow Rate FiO2 09/06/21 10:18 98.2 93 16 168/70 (102) 97 Room Air 98.2 09/05/21 08:00 5.0 Physical Exam: PHYSICAL EXAM GENERAL: Alert, oriented female, not in distress. VITAL SIGNS: Stable. HEENT: Both pupils are round and reacting. No conjunctival lesion. No lesion in the mouth. NECK: Supple, no JVP, no lymphadenopathy. LUNGS: Clear. HEART: S1, S2, regular. ABDOMEN: Soft, nontender, no organomegaly. EXTREMITIES: Right stump scar healed Left foot dressing taken down. Left great toe base healthy, clean, . Sutures over left lower extremity intact dry, no erythema or drainage SKIN: No generalized rash NEUROLOGIC: The patient is neurologically alert, awake, and appropriate. No focal neurologic deficit. Medications: Inpatient Meds: Medications reviewed. Labs: Lab Laboratory Tests Test 09/05/21 20:10 09/06/21 03:25 09/06/21 07:45 09/06/21 11:47 Glucose (Fingerstick) 169 mg/dL (70-99) 207 mg/dL (70-99) 167 mg/dL (70-99) White Blood Count 18.4 x10^3/uL (4.0-11.0) Red Blood Count 3.88 x10^6/uL (3.50-5.40) Hemoglobin 11.1 g/dL (12.0-15.5) Hematocrit 33.2 % (36.0-47.0) Mean Corpuscular Volume 85 fL (79-100) Mean Corpuscular Hemoglobin 29 pg (25-35) Mean Corpuscular Hemoglobin Concent 33 g/dL (31-37) Red Cell Distribution Width 16.0 % (11.5-14.5) Platelet Count 575 x10^3/uL (140-400) Neutrophils (%) (Auto) 85 % (31-73) Lymphocytes (%) (Auto) 9 % (24-48) Monocytes (%) (Auto) 5 % (0-9) Eosinophils (%) (Auto) 1 % (0-3) Basophils (%) (Auto) 0 % (0-3) Neutrophils # (Auto) 15.6 x10^3/uL (1.8-7.7) Lymphocytes # (Auto) 1.6 x10^3/uL (1.0-4.8) Monocytes # (Auto) 1.0 x10^3/uL (0.0-1.1) Eosinophils # (Auto) 0.2 x10^3/uL (0.0-0.7) Basophils # (Auto) 0.1 x10^3/uL (0.0-0.2) Micro -------- ---- RUN DATE: 09/06/21 [facility] *LIVE* PAGE 1 RUN TIME: 943 Specimen Inquiry PATIENT: BETH KEYS ACCT: [id number] LOC: [address] [place] [address] U: [id number] AGE/SX: 61/F ROOM: [facility] RE08/31/[address]: STEFANI MIGUEL MD : 1960 BED: 1 DIS: STATUS: ADM IN TLOC: SPEC #: [id number] EMILEE: 08/31/21 STATUS: ARLIN REQ #: [id number] RECD: 09/01/[address] [facility] [address]: WILMER MCALLISTER MD SOURCE: FOOT ENTR: 09/01/[address] [facility] [address]: ELOISA CHATMAN MD SPDESC: MARIO OLIVO MD ORDERED: DESEAN/AEROBIC CUL COMMENTS: LEFT TOE ABSCESS Procedure Result GRAM STAIN-AER DESEAN Final PMNS (WBCS): MANY SQUAMOUS EPI CELL: NONE SEEN GRAM NEGATIVE RODS: MODERATE GRAM POS RODS: FEW GRAM POS COCCI: MANY CULTURE ANAEROBIC/AEROBIC Final MIXED AEROBIC AND ANAEROBIC KATHLEEN on 09/05/21 at 1432. INCLUDING: MANY ENTEROCOCCUS FAECALIS MANY EIKENELLA CORRODENS FEW STAPHYLOCOCCUS AUREUS (MRSA) FEW ACINETOBACTER PITTII MANY STREPTOCOCCUS ANGINOSUS MODERATE PREVOTELLA MELANINOGENICA Testing performed by [address] [address] director of outreach: Lanny Wong MD Organism 1 ENTEROCOCCUS FAECALIS Organism 2 EIKENELLA CORRODENS Organism 3 STAPHYLOCOCCUS AUREUS (MRSA) Organism 4 ACINETOBACTER PITTII Organism 5 STREPTOCOCCUS ANGINOSUS Organism 6 PREVOTELLA MELANINOGENICA Organism 7 PREVOTELLA MELANINOGENICA#2 3. STAPHYLOCOCCUS AUREUS (MRSA) Target Route Dose RX AB Cost M.I.C. IQ ------ ----- ------ -- ------ --------- ------ AZITHROMYCIN R >4 DAPTOMYCIN S <=0.5 VANCOMYCIN S 1 CEFTAROLINE S <=0.5 RUN DATE: 09/06/21 [facility] *LIVE* PAGE 2 RUN TIME: 0944 Specimen Inquiry SPEC: [id number] PATIENT: BETH KEYS Sunitha [id number] (Continued) Procedure Result CONTINUED ON NEXT PAGE RUN DATE: 09/06/21 [facility] *LIVE* PAGE 3 RUN TIME: 0944 Specimen Inquiry SPEC: [id number] PATIENT: BETH KEYS [id number] (Continued) Procedure Result CULTURE ANAEROBIC/AEROBIC Final (continued) 3. STAPHYLOCOCCUS AUREUS (MRSA) (continued) Target Route Dose RX AB Cost M.I.C. IQ ------ ----- ------ -- ------ ----- ---- ------ IND CLINDAMYCIN POS >4/0.5 TRIMETH/SULFA S <=0.5/9.5 LEVOFLOXACIN R >4 * CLINDAMYCIN R <=0.25 LINEZOLID S 4 ERYTHROMYCIN R >4 PENICILLIN R >2 TETRACYCLINE S <=4 RIFAMPIN S <=1 OXACILLIN R >2 GENTAMICIN S <=4 Objective: Assessment: 1. Left big toe gangrene, status post open ray amputation.Polymicrobial organisms as above 2. Left peripheral arterial disease, status post left leg bypass. 3. Diabetes mellitus. 4. Hypertension. 5. Gastroesophageal reflux disease. Nausea and vomiting Leukocytosis could have a reactive component from nausea and vomiting yesterday Cultures positive for MANY STAPHYLOCOCCUS AUREUS MANY ENTEROCOCCUS FAECALIS MANY STREPTOCOCCUS ANGINOSUS RARE ACINETOBACTER PITTII MODERATE EIKENELLA CORRODENS MANY PREVOTELLA MELANINOGENICA Plan: Plan of Care Limited choices for this patient for antibiotic treatment as intraoperative cultures has polymicrobial organisms Micro lab did not report susceptibilities for all of the above microorganisms except for MRSA Continue tigecycline can give slow infusion Leukocytosis could have reactive component from nausea and vomiting Trend WBC If patient has diarrhea check for C. difficile Nausea and vomiting management per primary Local wound care as directed Offload Continue supportive care Maintain aspiration precautions Discussed with ELOISA Hurst MD September 06, 2021 12:36
[2021-09-06 14:44] VITALS: BP 148/67
--- NOTE | 2021-09-06 15:31 | NUR ---
Wound Care Wound Type/Assessment: Patient seen for wound vac dressing change. Pt s/p open amputation of L great toe. Pt known to wound clinic. Wound cleansed, assessed, pictured and measured. Wound base is moist and pale pink with a tunnel at 12:00 and exposed bone. Wound margins well defined and intact. One piece of black foam applied to wound base; tracked to L anterior lower leg. Good seal achieved at 125mmHg continuous. No other wounds noted on head to toe inspection. Treatment Recommendations/Plan: Continue NPWT at 125mmHg continuous suction. Wound care will change on MW. If patient discharges home there is a [employer] vac approved, however if going to facility will need wound vac therapy approved there as well. Education provided: Education provided r/t pressure ulcer prevention, wound healing, and diabetes management. Pt voices understanding. Offloading surface/device: Pt is independent with mobility Recommended Referrals/Tests: NA Discharge Recommendations for dressings: Will need wound vac orders if transferring to facility. Bed lowered and call light in reach. Wound care will follow up with patient on Monday.
--- NOTE | 2021-09-06 16:15 | NUR ---
SS following up with discharge planning. SS reviewed pt chart and discussed with pt RN. Pt is currently on room air. COVID19 negative. Pt on IV Tigecycline. PT/OT recommended acute rehabilitation. Pt accepted at [facility], ; fax [phone], pending insurance authorization. Clinical updates sent to [facility]. [facility] unable to provide IV Tigecycline. SS will continue to follow for discharge planning.
[2021-09-06] MEDS: POLYETHYLENE GLYCOL 3350 17 GM PACKET. PO SCH (17:26)
--- NOTE | 2021-09-06 19:12 | PATHOLOGY ---
[facility] Accession Number: [id number] . 01 Material submitted: . toe - LEFT GREAT TOE . 01 Clinical history: . PVD WITH WOUND . 02 Diagnosis: Left great toe amputation: - Ulceration of skin with acute cellulitis and acute osteomyelitis. . ([facility]:mm; 09/06/2021) [facility] 09/06/2021 1049 Local . 02 Comment: There is acute osteomyelitis involving the proximal bone amputation margin. . ([facility]:mml; 09/06/2021) . 02 Electronically signed: . James Mittal MD, Pathologist NPI- [id number] . 01 Gross description: . Received in formalin labeled "Denisa Michael, left great toe" is a toe amputation specimen measuring 10.2 x 4.0 x 3.9 cm. The specimen displays a yellow-cabral and thickened nail measuring 2.1 x 2.1 x 0.3 cm. The skin and soft tissue margin is smooth and consistent with a surgical margin and the bone margin is slightly roughened and consistent with a surgical margin. The margins are inked entirely black. The medial aspect of the proximal specimen displays an ulcerated yellow-brown necrotic lesion measuring 3.1 x 3.0 x 0.9 cm. The lesion is located 0.5 cm from the closest skin and soft tissue margins. Upon sectioning, the lesion diffusely involves the underlying bone and grossly abuts the inked bone margin. Lock Expert sections are submitted in cassettes A1-A2 following decalcification. ([facility]; 09/02/2021) [facility] 09/02/2021 1341 Local . 02 Pathologist provided ICD-10: M86.172 . 02 CPT . 432018, 456681 Specimen Comment: A courtesy copy of this report has been sent to [phone] Specimen Comment: Report sent to Performed at: [address] [facility] [id number] MD Alvaro Clark MD Phone: [phone] Performed at: [facility] [address] [place], [place] [id number] MD James Mittal MD Phone: [phone]
[2021-09-06 19:25] VITALS: BP 171/72
[2021-09-06] MEDS: traZODone 50 MG TABLET. PO SCH (21:00)
[2021-09-06] MEDS: ACETAMINOPHEN 325 MG TABLET. PO PRN (22:13)
[2021-09-06 22:20] VITALS: BP 172/72
[2021-09-06] MEDS: INSULIN GLARGINE SYRINGE. SQ SCH (22:22)
[2021-09-07 02:55] VITALS: BP 171/72
[2021-09-07 04:45] LABS: BASO % 0 % (0-3); EOS # 0.3 x10^3/uL (0.0-0.7); EOS % 2 % (0-3); HEMATOCRIT 31.8 % (36.0-47.0); HEMOGLOBIN 10.2 g/dL (12.0-15.5); LYMPH # 2.5 x10^3/uL (1.0-4.8); LYMPH % 15 % (24-48); MEAN CORPUSCULAR HEMOGLOBIN 28 pg (25-35); MEAN CORPUSCULAR HGB CONC 32 g/dL (31-37); MEAN CORPUSCULAR VOLUME 87 fL (79-100); MONO # 1.2 x10^3/uL (0.0-1.1); MONO % 7 % (0-9); NEUT # 13.3 x10^3/uL (1.8-7.7); NEUT % 77 % (31-73); PLATELET COUNT 511 x10^3/uL (140-400); RED BLOOD COUNT 3.67 x10^6/uL (3.50-5.40); RED CELL DISTRIBUTION WIDTH 15.6 % (11.5-14.5); WHITE BLOOD COUNT 17.2 x10^3/uL (4.0-11.0)
[2021-09-07 05:01] LABS: CALCIUM 8.6 mg/dL (8.5-10.1); CREATININE 1.5 mg/dL (0.6-1.0); GFR 35.4; POTASSIUM 3.8 mmol/L (3.5-5.1)
[2021-09-07 05:20] LABS: % BANDS 1 % (0-9); % EOS 1 % (0-5); % LYMPHS 16 % (24-48); % MONOS 4 % (0-10); % SEGS 78 % (35-66)
[2021-09-07 05:21] LABS: PLT ESTIMATE INCREASED (ADEQUATE)
[2021-09-07] MEDS: HEPARIN for SUB-Q USE 5,000 UNIT/ML VIAL. SQ SCH ×3 (06:13→23:37)
[2021-09-07 07:00] VITALS: BP 188/77
[2021-09-07] MEDS: INSULIN LISPRO 300 UNITS/3 ML VIAL. SQ SCH ×3 (08:00→17:00)
[2021-09-07] MEDS: POLYETHYLENE GLYCOL 3350 17 GM PACKET. PO SCH ×2 (08:29→09:00)
[2021-09-07] MEDS: LISINOPRIL 20 MG TABLET PO SCH (08:30)
[2021-09-07] MEDS: ACETAMINOPHEN 325 MG TABLET. PO PRN (08:30)
[2021-09-07] MEDS: LACTOBACILLUS RHAMNOSUS GG 1 CAPSULE. PO SCH ×2 (08:30→20:16)
[2021-09-07] MEDS: CLOPIDOGREL BISULFATE 75 MG TABLET PO SCH (08:31)
[2021-09-07] MEDS: LINAGLIPTIN 5 MG TABLET PO SCH (08:31)
[2021-09-07] MEDS: DULoxetine HCL 30 MG CAPSULE.DR PO SCH (08:31)
[2021-09-07] MEDS: DOCUSATE SODIUM 100 MG CAPSULE. PO SCH ×3 (08:31→21:00)
[2021-09-07] MEDS: GABAPENTIN 300 MG CAPSULE. PO SCH ×3 (08:31→20:16)
[2021-09-07] MEDS: PANTOPRAZOLE 40 MG TABLET.DR. PO SCH (08:31)
[2021-09-07] MEDS: FERROUS SULFATE 325 MG TABLET. PO SCH (08:31)
[2021-09-07] MEDS: TIGECYCLINE 50 MG in IV DEXTROSE 5% 50 ML IV SCH (08:38)
[2021-09-07] MEDS: ELECTROLYTE (NON-ICU) PROTOCOL. MC SCH (09:00)
--- NOTE | 2021-09-07 10:00 | PDOC ---
SURGICAL PROGRESS NOTE DATE: 09/07/21 TIME: 09:59 Subjective Patient was seen and examined at the bedside this morning. There were no acute events overnight. Her pain is under good control. Vital Signs Vital Signs Date Time Temp Pulse Resp B/P (MAP) Pulse Ox O2 Delivery O2 Flow Rate FiO2 09/07/21 08:32 82 171/72 09/07/21 07:00 97.6 20 97 Room Air 97.6 I&O Intake and Output 09/07/21 07:00 Intake Total 560 ml Output Total 1200 ml Balance -640 ml Intake Oral 560 ml Output Urine Total 1200 ml # Bowel Movements 1 General: Alert, Oriented X3, Cooperative HEENT: Atraumatic, PERRLA Lungs: Clear to auscultation, Normal air movement Heart: Regular rate, Normal S1, Normal S2 Abdomen: Normal bowel sounds, Soft, No tenderness Skin: Other (Lower extremity wounds on the left are clean, dry, and intact) Neuro: Normal speech, Strength at 5/5 X4 ext Labs Laboratory Tests Test 09/05/21 11:10 09/05/21 20:10 09/06/21 03:25 09/06/21 07:45 Glucose (Fingerstick) 141 mg/dL (70-99) 169 mg/dL (70-99) 207 mg/dL (70-99) White Blood Count 18.4 x10^3/uL (4.0-11.0) Red Blood Count 3.88 x10^6/uL (3.50-5.40) Hemoglobin 11.1 g/dL (12.0-15.5) Hematocrit 33.2 % (36.0-47.0) Mean Corpuscular Volume 85 fL (79-100) Mean Corpuscular Hemoglobin 29 pg (25-35) Mean Corpuscular Hemoglobin Concent 33 g/dL (31-37) Red Cell Distribution Width 16.0 % (11.5-14.5) Platelet Count 575 x10^3/uL (140-400) Neutrophils (%) (Auto) 85 % (31-73) Lymphocytes (%) (Auto) 9 % (24-48) Monocytes (%) (Auto) 5 % (0-9) Eosinophils (%) (Auto) 1 % (0-3) Basophils (%) (Auto) 0 % (0-3) Neutrophils # (Auto) 15.6 x10^3/uL (1.8-7.7) Lymphocytes # (Auto) 1.6 x10^3/uL (1.0-4.8) Monocytes # (Auto) 1.0 x10^3/uL (0.0-1.1) Eosinophils # (Auto) 0.2 x10^3/uL (0.0-0.7) Basophils # (Auto) 0.1 x10^3/uL (0.0-0.2) Test 09/06/21 11:47 09/06/21 16:46 09/06/21 21:01 09/07/21 03:55 Glucose (Fingerstick) 167 mg/dL (70-99) 191 mg/dL (70-99) 280 mg/dL (70-99) White Blood Count 17.2 x10^3/uL (4.0-11.0) Red Blood Count 3.67 x10^6/uL (3.50-5.40) Hemoglobin 10.2 g/dL (12.0-15.5) Hematocrit 31.8 % (36.0-47.0) Mean Corpuscular Volume 87 fL (79-100) Mean Corpuscular Hemoglobin 28 pg (25-35) Mean Corpuscular Hemoglobin Concent 32 g/dL (31-37) Red Cell Distribution Width 15.6 % (11.5-14.5) Platelet Count 511 x10^3/uL (140-400) Neutrophils (%) (Auto) 77 % (31-73) Lymphocytes (%) (Auto) 15 % (24-48) Monocytes (%) (Auto) 7 % (0-9) Eosinophils (%) (Auto) 2 % (0-3) Basophils (%) (Auto) 0 % (0-3) Neutrophils # (Auto) 13.3 x10^3/uL (1.8-7.7) Lymphocytes # (Auto) 2.5 x10^3/uL (1.0-4.8) Monocytes # (Auto) 1.2 x10^3/uL (0.0-1.1) Eosinophils # (Auto) 0.3 x10^3/uL (0.0-0.7) Basophils # (Auto) 0.0 x10^3/uL (0.0-0.2) Segmented Neutrophils % 78 % (35-66) Band Neutrophils % 1 % (0-9) Lymphocytes % 16 % (24-48) Monocytes % 4 % (0-10) Eosinophils % 1 % (0-5) Platelet Estimate Increased (ADEQUATE) Sodium Level 146 mmol/L (136-145) Potassium Level 3.8 mmol/L (3.5-5.1) Chloride Level 110 mmol/L (98-107) Carbon Dioxide Level 31 mmol/L (21-32) Anion Gap 5 (6-14) Blood Urea Nitrogen 31 mg/dL (7-20) Creatinine 1.5 mg/dL (0.6-1.0) Estimated GFR (Cockcroft-Gault) 35.4 Glucose Level 95 mg/dL (70-99) Calcium Level 8.6 mg/dL (8.5-10.1) Test 09/07/21 07:55 Glucose (Fingerstick) 104 mg/dL (70-99) Laboratory Tests Test 09/06/21 11:47 09/06/21 16:46 09/06/21 21:01 09/07/21 03:55 Glucose (Fingerstick) 167 mg/dL (70-99) 191 mg/dL (70-99) 280 mg/dL (70-99) White Blood Count 17.2 x10^3/uL (4.0-11.0) Red Blood Count 3.67 x10^6/uL (3.50-5.40) Hemoglobin 10.2 g/dL (12.0-15.5) Hematocrit 31.8 % (36.0-47.0) Mean Corpuscular Volume 87 fL (79-100) Mean Corpuscular Hemoglobin 28 pg (25-35) Mean Corpuscular Hemoglobin Concent 32 g/dL (31-37) Red Cell Distribution Width 15.6 % (11.5-14.5) Platelet Count 511 x10^3/uL (140-400) Neutrophils (%) (Auto) 77 % (31-73) Lymphocytes (%) (Auto) 15 % (24-48) Monocytes (%) (Auto) 7 % (0-9) Eosinophils (%) (Auto) 2 % (0-3) Basophils (%) (Auto) 0 % (0-3) Neutrophils # (Auto) 13.3 x10^3/uL (1.8-7.7) Lymphocytes # (Auto) 2.5 x10^3/uL (1.0-4.8) Monocytes # (Auto) 1.2 x10^3/uL (0.0-1.1) Eosinophils # (Auto) 0.3 x10^3/uL (0.0-0.7) Basophils # (Auto) 0.0 x10^3/uL (0.0-0.2) Segmented Neutrophils % 78 % (35-66) Band Neutrophils % 1 % (0-9) Lymphocytes % 16 % (24-48) Monocytes % 4 % (0-10) Eosinophils % 1 % (0-5) Platelet Estimate Increased (ADEQUATE) Sodium Level 146 mmol/L (136-145) Potassium Level 3.8 mmol/L (3.5-5.1) Chloride Level 110 mmol/L (98-107) Carbon Dioxide Level 31 mmol/L (21-32) Anion Gap 5 (6-14) Blood Urea Nitrogen 31 mg/dL (7-20) Creatinine 1.5 mg/dL (0.6-1.0) Estimated GFR (Cockcroft-Gault) 35.4 Glucose Level 95 mg/dL (70-99) Calcium Level 8.6 mg/dL (8.5-10.1) Test 09/07/21 07:55 Glucose (Fingerstick) 104 mg/dL (70-99) Assessment/Plan Left lower extremity surgical wounds are clean, dry, and intact. She has negative pressure wound VAC in place. The patient can be discharged to rehab once a bed is available. We will arrange follow-up in our office subsequently. Justicifation of Admission Dx: Justifications for Admission: Justification of Admission Dx: Yes BARBARAKIM RAYMOND September 07, 2021 10:00
[2021-09-07 10:57] VITALS: BP 151/66
--- NOTE | 2021-09-07 11:00 | PDOC ---
[facility] PROGRESS NOTE Date of Service DOS: DATE: 09/07/21 TIME: 10:58 Chief Complaint Chief Complaint S/P femoral endarterectomy S/P left common femoral artery to tibial peroneal artery bypass using greater saphenous vein S/P left leg great saphenous vein harvest S/P left first toe open ray amputation including resection of the metatarsal head MRSA wound infection PVD DM2 GERD History of Present Illness History of Present Illness 09/07: Afebrile. Had bowel movement yesterday, denies any abdominal pain. Some slight improvement in leukocytosis. Wound cultures polymicrobial, including MRSA. Continue tigecycline, per ID. She has been accepted at [facility], pending insurance approval. 09/06: Afebrile. [facility], [facility] insurance appr oval. Worsening leukocytosis noted. Patient has no complaints today. Will continue IV antibiotics, per ID. This may need to be changed due to cost. 09/05: Patient seen resting comfortably in bed. Wound VAC in place. She continues on tigecycline for left big toe gangrene, s/p open ray amputation with wound cultures polymicrobial. She went to discharge to SNU. Patient adamant about not wanting long-term placement. Denies nausea or vomiting. 09/04: Patient seen and evaluated. No complaints, states she feels tired. Left lower extremity pain controlled with medications. Blood pressure elevated this morning; will add IV palpation medications. Continue IV antibiotics. She has been accepted at [facility], pending insurance approval. Of note, [facility] cannot provide IV tigecycline. . 09/03: Patient seen and evaluated. She reports pain in the left lower extremity, /10. Vascular surgery following. Continue antibiotics, per ID. 09/02: Patient seen and evaluated bedside. S/P femoral endarterectomy and left first toe amputation. Wound VAC in place to left foot. States her pain increases at night. Reminded patient that she has higher strength options for pain management if she needs them. Wound cultures growing staph, Enterococcus, strep, and actinobacter. We will continue to follow cultures for sensitivities. Will order oral iron. Discussed with RN. Vitals/I&O Vitals/I&O: Vital Signs Date Time Temp Pulse Resp B/P (MAP) Pulse Ox O2 Delivery O2 Flow Rate FiO2 5/3/22 10:57 97.9 82 18 151/66 (94) 97 Room Air 97.9 I & O 09/06/21 09/06/21 09/07/21 15:00 23:00 07:00 Intake Total 200 ml 260 ml 100 ml Output Total 400 ml 800 ml Balance 200 ml -140 ml -700 ml Physical Exam Physical Exam: GENERAL: Alert, oriented female, not in distress. VITAL SIGNS: Stable. HEENT: Both pupils are round and reacting. No conjunctival lesion. No lesion in the mouth. NECK: Supple, no JVP, no lymphadenopathy. LUNGS: Clear. HEART: S1, S2, regular. ABDOMEN: Soft, nontender, no organomegaly. EXTREMITIES: Right stump scar healed Left foot dressing taken down. Left great toe base healthy, clean, . Sutures over left lower extremity intact dry, no erythema or drainage SKIN: No generalized rash NEUROLOGIC: The patient is neurologically alert, awake, and appropriate. No focal neurologic deficit. General: Alert, Oriented X3, Cooperative Heart: Regular rate, Normal S1, Normal S2 Lungs: Clear Abdomen: Normal bowel sounds, Soft, No tenderness Extremities: Other (Left medial leg incisions intact. No erythema or fluctuance. Minimal edema. Wound VAC in place over left foot and toe amputation site. Good biphasic Doppler signal in left posterior tibial artery) Skin: Other (Lower extremity wounds on the left are clean, dry, and intact) Labs Labs: Laboratory Tests Test 09/06/21 11:47 09/06/21 16:46 09/06/21 21:01 09/07/21 03:55 Glucose (Fingerstick) 167 mg/dL (70-99) 191 mg/dL (70-99) 280 mg/dL (70-99) White Blood Count 17.2 x10^3/uL (4.0-11.0) Red Blood Count 3.67 x10^6/uL (3.50-5.40) Hemoglobin 10.2 g/dL (12.0-15.5) Hematocrit 31.8 % (36.0-47.0) Mean Corpuscular Volume 87 fL (79-100) Mean Corpuscular Hemoglobin 28 pg (25-35) Mean Corpuscular Hemoglobin Concent 32 g/dL (31-37) Red Cell Distribution Width 15.6 % (11.5-14.5) Platelet Count 511 x10^3/uL (140-400) Neutrophils (%) (Auto) 77 % (31-73) Lymphocytes (%) (Auto) 15 % (24-48) Monocytes (%) (Auto) 7 % (0-9) Eosinophils (%) (Auto) 2 % (0-3) Basophils (%) (Auto) 0 % (0-3) Neutrophils # (Auto) 13.3 x10^3/uL (1.8-7.7) Lymphocytes # (Auto) 2.5 x10^3/uL (1.0-4.8) Monocytes # (Auto) 1.2 x10^3/uL (0.0-1.1) Eosinophils # (Auto) 0.3 x10^3/uL (0.0-0.7) Basophils # (Auto) 0.0 x10^3/uL (0.0-0.2) Segmented Neutrophils % 78 % (35-66) Band Neutrophils % 1 % (0-9) Lymphocytes % 16 % (24-48) Monocytes % 4 % (0-10) Eosinophils % 1 % (0-5) Platelet Estimate Increased (ADEQUATE) Sodium Level 146 mmol/L (136-145) Potassium Level 3.8 mmol/L (3.5-5.1) Chloride Level 110 mmol/L (98-107) Carbon Dioxide Level 31 mmol/L (21-32) Anion Gap 5 (6-14) Blood Urea Nitrogen 31 mg/dL (7-20) Creatinine 1.5 mg/dL (0.6-1.0) Estimated GFR (Cockcroft-Gault) 35.4 Glucose Level 95 mg/dL (70-99) Calcium Level 8.6 mg/dL (8.5-10.1) Test 09/07/21 07:55 Glucose (Fingerstick) 104 mg/dL (70-99) Comment Review of Relevant I have reviewed the following items ted (where applicable) has been applied. Medications: Current Medications Medications (Trade) Dose Ordered Sig/Primitivo Route PRN Reason Start Time Stop Time Status Last Admin Dose Admin Polyethylene Glycol (miraLAX PACKET) 17 gm DAILY PO 09/06/21 17:00 09/07/21 08:29 Justifications for Admission Other Justification STEFANI MIGUEL MD September 07, 2021 11:00
--- NOTE | 2021-09-07 12:41 | PDOC ---
Infectious Disease Note Subjective: Subjective Patient feels a little better still has nasuea and vomitting has diarrhea Denies any fever Denies any shortness of breath or cough Denies any abdominal pain Postop site pain is under control Vital Signs: Vital Signs Vital Signs Date Time Temp Pulse Resp B/P (MAP) Pulse Ox O2 Delivery O2 Flow Rate FiO2 09/07/21 10:57 97.9 82 18 151/66 (94) 97 Room Air 97.9 Physical Exam: PHYSICAL EXAM GENERAL: Alert, oriented female, not in distress. VITAL SIGNS: Stable. HEENT: Both pupils are round and reacting. No conjunctival lesion. No lesion in the mouth. NECK: Supple, no JVP, no lymphadenopathy. LUNGS: Clear. HEART: S1, S2, regular. ABDOMEN: Soft, nontender, no organomegaly. EXTREMITIES: Right stump scar healed Left foot dressing taken down. Left great toe base healthy, clean, . Sutures over left lower extremity intact dry, no erythema or drainage SKIN: No generalized rash NEUROLOGIC: The patient is neurologically alert, awake, and appropriate. No focal neurologic deficit. Medications: Inpatient Meds: Medications reviewed. Labs: Lab Laboratory Tests Test 09/06/21 16:46 09/06/21 21:01 09/07/21 03:55 09/07/21 07:55 Glucose (Fingerstick) 191 mg/dL (70-99) 280 mg/dL (70-99) 104 mg/dL (70-99) White Blood Count 17.2 x10^3/uL (4.0-11.0) Red Blood Count 3.67 x10^6/uL (3.50-5.40) Hemoglobin 10.2 g/dL (12.0-15.5) Hematocrit 31.8 % (36.0-47.0) Mean Corpuscular Volume 87 fL (79-100) Mean Corpuscular Hemoglobin 28 pg (25-35) Mean Corpuscular Hemoglobin Concent 32 g/dL (31-37) Red Cell Distribution Width 15.6 % (11.5-14.5) Platelet Count 511 x10^3/uL (140-400) Neutrophils (%) (Auto) 77 % (31-73) Lymphocytes (%) (Auto) 15 % (24-48) Monocytes (%) (Auto) 7 % (0-9) Eosinophils (%) (Auto) 2 % (0-3) Basophils (%) (Auto) 0 % (0-3) Neutrophils # (Auto) 13.3 x10^3/uL (1.8-7.7) Lymphocytes # (Auto) 2.5 x10^3/uL (1.0-4.8) Monocytes # (Auto) 1.2 x10^3/uL (0.0-1.1) Eosinophils # (Auto) 0.3 x10^3/uL (0.0-0.7) Basophils # (Auto) 0.0 x10^3/uL (0.0-0.2) Segmented Neutrophils % 78 % (35-66) Band Neutrophils % 1 % (0-9) Lymphocytes % 16 % (24-48) Monocytes % 4 % (0-10) Eosinophils % 1 % (0-5) Platelet Estimate Increased (ADEQUATE) Sodium Level 146 mmol/L (136-145) Potassium Level 3.8 mmol/L (3.5-5.1) Chloride Level 110 mmol/L (98-107) Carbon Dioxide Level 31 mmol/L (21-32) Anion Gap 5 (6-14) Blood Urea Nitrogen 31 mg/dL (7-20) Creatinine 1.5 mg/dL (0.6-1.0) Estimated GFR (Cockcroft-Gault) 35.4 Glucose Level 95 mg/dL (70-99) Calcium Level 8.6 mg/dL (8.5-10.1) Test 09/07/21 11:47 Glucose (Fingerstick) 122 mg/dL (70-99) Micro RUN DATE: 09/06/21 [facility] *LIVE* PAGE 1 RUN TIME: 943 Specimen Inquiry PATIENT: BETH KEYS ACCT: [id number] LOC: [address] [place] [address] U: [id number] AGE/SX: 61/F ROOM: [facility] RE08/31/[address]: STEFANI MIGUEL MD : 1960 BED: 1 DIS: STATUS: ADM IN TLOC: SPEC #: [id number] EMILEE: 08/31/21 STATUS: COMP REQ #: [id number] RECD: 09/01/[address]: WILMER MCALLISTER MD SOURCE: FOOT ENTR: 09/01/[address]: ELOISA CHATMAN MD SPDESC: MARIO OLIVO MD ORDERED: DESEAN/AEROBIC CUL COMMENTS: LEFT TOE ABSCESS -------- ---- Procedure Result GRAM STAIN-AER DESEAN Final PMNS (WBCS): MANY SQUAMOUS EPI CELL: NONE SEEN GRAM NEGATIVE RODS: MODERATE GRAM POS RODS: FEW GRAM POS COCCI: MANY CULTURE ANAEROBIC/AEROBIC Final MIXED AEROBIC AND ANAEROBIC KATHLEEN on 09/05/21 at 1432. INCLUDING: MANY ENTEROCOCCUS FAECALIS MANY EIKENELLA CORRODENS FEW STAPHYLOCOCCUS AUREUS (MRSA) FEW ACINETOBACTER PITTII MANY STREPTOCOCCUS ANGINOSUS MODERATE PREVOTELLA MELANINOGENICA [place] [address] environmental studies program director: Lanny Wong MD Organism 1 ENTEROCOCCUS FAECALIS Organism 2 EIKENELLA CORRODENS Organism 3 STAPHYLOCOCCUS AUREUS (MRSA) Organism 4 ACINETOBACTER PITTII Organism 5 STREPTOCOCCUS ANGINOSUS Organism 6 PREVOTELLA MELANINOGENICA Organism 7 PREVOTELLA MELANINOGENICA#2 3. STAPHYLOCOCCUS AUREUS (MRSA) Target Route Dose RX AB Cost M.I.C. IQ ------ ----- ------ -- ------ --------- ------ AZITHROMYCIN R >4 DAPTOMYCIN S <=0.5 VANCOMYCIN S 1 CEFTAROLINE S <=0.5 RUN DATE: 09/06/21 [facility] *LIVE* PAGE 2 RUN TIME: 943 Specimen Inquiry SPEC: [id number] PATIENT: BETH KEYS [id number] (Continued) Procedure Result CONTINUED ON NEXT PAGE RUN DATE: 09/06/21 [facility] *LIVE* PAGE 3 RUN TIME: 0944 Specimen Inquiry SPEC: [id number] PATIENT: BETH KEYS [id number] (Continued) Procedure Result CULTURE ANAEROBIC/AEROBIC Final (continued) 3. STAPHYLOCOCCUS AUREUS (MRSA) (continued) Target Route Dose RX AB Cost M.I.C. IQ ------ ----- ------ -- ------ --------- ------ IND CLINDAMYCIN POS >4/0.5 TRIMETH/SULFA S <=0.5/9.5 LEVOFLOXACIN R >4 * CLINDAMYCIN R <=0.25 LINEZOLID S 4 ERYTHROMYCIN R >4 PENICILLIN R >2 TETRACYCLINE S <=4 RIFAMPIN S <=1 OXACILLIN R >2 GENTAMICIN S <=4 Objective: Assessment: 1. Left big toe gangrene, status post open ray amputation.Polymicrobial organisms as above 2. Left peripheral arterial disease, status post left leg bypass. 3. Diabetes mellitus. 4. Hypertension. 5. Gastroesophageal reflux disease. Nausea and vomiting Leukocytosis could have a reactive component from nausea and vomiting yesterday Cultures positive for MANY STAPHYLOCOCCUS AUREUS MANY ENTEROCOCCUS FAECALIS MANY STREPTOCOCCUS ANGINOSUS RARE ACINETOBACTER PITTII MODERATE EIKENELLA CORRODENS MANY PREVOTELLA MELANINOGENICA Diarrhea Plan: Plan of Care Limited choices for this patient for antibiotic treatment as intraoperative cultures has polymicrobial organisms Micro lab did not report susceptibilities for all of the above microorganisms except for MRSA Leukocytosis could have reactive component from nausea and vomiting Trend WBC, somewhat decreased If patient has diarrhea check for C. difficile Nausea and vomiting management per primary Local wound care as directed Offload Continue supportive care Maintain aspiration precautions Change Tigacyl to Daptomycin, Zosyn and minocycline check c diff pcr ELOISA CHATMAN MD September 07, 2021 12:41
[2021-09-07] MEDS ORDERED: PIP/TAZO PER PHARMACY MC PRN (13:15)
--- NOTE | 2021-09-07 13:26 | NUR ---
SS following up with discharge planning. SS reviewed pt chart and discussed with pt RN. Pt is currently on room air. COVID19 negative. Pt now on IV Daptomycin. PT/OT recommended acute rehabilitation. Pt accepted at [facility], ; fax [phone]. Insurance authorization received. [facility] confirmed that they can provide IV Daptomycin. Per physician not ready today. SS will continue to follow for discharge planning.
[2021-09-07] MEDS: PIPERACILLIN/TAZOBACTAM 2.25 GM in IV NORMAL SALINE 50ML 50 ML IV SCH ×3 (14:23→23:45)
[2021-09-07 15:00] VITALS: BP 136/63
[2021-09-07] MEDS: DAPTOmycin (GENERIC) IVPB 350 MG in IV NORMAL SALINE 50ML 50 ML IV SCH (15:06)
[2021-09-07 19:49] VITALS: BP 163/69
[2021-09-07] MEDS: traZODone 50 MG TABLET. PO SCH (20:16)
[2021-09-07] MEDS: MINOCYCLINE 100 MG CAPSULE PO SCH (20:16)
[2021-09-07 22:58] VITALS: BP 196/79
[2021-09-07] MEDS: INSULIN GLARGINE SYRINGE. SQ SCH (23:37)
[2021-09-08 02:56] VITALS: BP 105/53
[2021-09-08] MEDS: HEPARIN for SUB-Q USE 5,000 UNIT/ML VIAL. SQ SCH ×3 (05:40→20:51)
[2021-09-08] MEDS: PIPERACILLIN/TAZOBACTAM 2.25 GM in IV NORMAL SALINE 50ML 50 ML IV SCH ×4 (05:41→23:03)
[2021-09-08 06:52] LABS: BASO % 0 % (0-3); EOS # 0.2 x10^3/uL (0.0-0.7); EOS % 2 % (0-3); HEMATOCRIT 30.8 % (36.0-47.0); HEMOGLOBIN 10.2 g/dL (12.0-15.5); LYMPH # 2.3 x10^3/uL (1.0-4.8); LYMPH % 18 % (24-48); MEAN CORPUSCULAR HEMOGLOBIN 29 pg (25-35); MEAN CORPUSCULAR HGB CONC 33 g/dL (31-37); MEAN CORPUSCULAR VOLUME 86 fL (79-100); MONO % 8 % (0-9); NEUT # 9.2 x10^3/uL (1.8-7.7); NEUT % 72 % (31-73); PLATELET COUNT 498 x10^3/uL (140-400); RED BLOOD COUNT 3.57 x10^6/uL (3.50-5.40); RED CELL DISTRIBUTION WIDTH 16.1 % (11.5-14.5); WHITE BLOOD COUNT 12.7 x10^3/uL (4.0-11.0)
[2021-09-08 07:00] VITALS: BP 159/70
[2021-09-08] MEDS: INSULIN LISPRO 300 UNITS/3 ML VIAL. SQ SCH ×3 (08:00→17:00)
[2021-09-08] MEDS: POLYETHYLENE GLYCOL 3350 17 GM PACKET. PO SCH (08:36)
[2021-09-08] MEDS: DOCUSATE SODIUM 100 MG CAPSULE. PO SCH ×2 (08:36→20:03)
[2021-09-08] MEDS: DULoxetine HCL 30 MG CAPSULE.DR PO SCH (08:44)
[2021-09-08] MEDS: LACTOBACILLUS RHAMNOSUS GG 1 CAPSULE. PO SCH ×2 (08:44→20:03)
[2021-09-08] MEDS: GABAPENTIN 300 MG CAPSULE. PO SCH ×3 (08:45→20:04)
[2021-09-08] MEDS: CLOPIDOGREL BISULFATE 75 MG TABLET PO SCH (08:45)
[2021-09-08] MEDS: LINAGLIPTIN 5 MG TABLET PO SCH (08:45)
[2021-09-08] MEDS: FERROUS SULFATE 325 MG TABLET. PO SCH (08:46)
[2021-09-08] MEDS: LISINOPRIL 20 MG TABLET PO SCH (08:46)
[2021-09-08] MEDS: PANTOPRAZOLE 40 MG TABLET.DR. PO SCH (08:46)
[2021-09-08] MEDS: ELECTROLYTE (NON-ICU) PROTOCOL. MC SCH (08:49)
--- NOTE | 2021-09-08 08:57 | PDOC ---
Provider Note Date of Service: DATE: 09/08/21 TIME: 08:53 Provider Note Provider Note Vascular S: Patient resting comfortably in bed, she is without complaints. Patient seen with Dr. Spears. O: Awake and alert HRR Non-labored respirations Left leg bypass with palpable graft pulse. Doppler signal strong in PT and weak in DP Incisions dry and intact Wound vac in place and functioning first toe amputation site A/P: POD #8 Left common femoral artery endarterectomy, Left common femoral artery to tibioperoneal artery bypass using great saphenous vein in the non- reversed fashion Left first toe open ray amputation including resection of the metatarsal head Patent bypass, incisions healing nicely Continue vac therapy, abx per ID Continue non-weight bearing with slide board until toe amputation site has healed Awaiting transfer Justicifation of Admission Dx: Justifications for Admission: Justification of Admission Dx: Yes ANDRAE PINZON STACKER DRIVER September 08, 2021 08:57
[2021-09-08] MEDS: MINOCYCLINE 100 MG CAPSULE PO SCH ×2 (12:06→20:04)
--- NOTE | 2021-09-08 12:08 | PDOC ---
[employer] PROGRESS NOTE Date of Service DOS: DATE: 09/08/21 TIME: 12:02 Chief Complaint Chief Complaint S/P femoral endarterectomy S/P left common femoral artery to tibial peroneal artery bypass using greater saphenous vein S/P left leg great saphenous vein harvest S/P left first toe open ray amputation including resection of the metatarsal head MRSA wound infection PVD DM2 GERD History of Present Illness History of Present Illness 09/08: Afebrile. Denies abdominal pain. Does admit to some diarrhea today; sample sent for C. difficile PCR. Improving leukocytosis, WBC 12.7 today. Appears clinically dehydrated. IV fluids. Order placed for PICC line. If she continues to improve [facility]. Discussed with RN. 09/07: Afebrile. Had bowel movement yesterday, denies any abdominal pain. Some slight improvement in leukocytosis. Wound cultures polymicrobial, including MRSA. Continue tigecycline, per ID. She has been accepted at [facility], pending insurance approval. 09/06: Afebrile. [facility], pending insurance approval. Worsening leukocytosis noted. Patient has no complaints today. Will continue IV antibiotics, per ID. This may need to be changed due to cost. 09/05: Patient seen resting comfortably in bed. Wound VAC in place. She continues on tigecycline for left big toe gangrene, s/p open ray amputation with wound cultures polymicrobial. She went to discharge to [facility]. Patient adamant about not wanting long-term placement. Denies nausea or vomiting. 09/04: Patient seen and evaluated. No complaints, states she feels tired. Left lower extremity pain controlled with medications. Blood pressure elevated this morning; will add IV palpation medications. Continue IV antibiotics. She has been accepted at [facility], pending insurance approval. Of note, facility cannot provide IV tigecycline. . 09/03: Patient seen and evaluated. She reports pain in the left lower extremity, 12/15. Vascular surgery following. Continue antibiotics, per ID. 09/02: Patient seen and evaluated bedside. S/P femoral endarterectomy and left first toe amputation. Wound VAC in place to left foot. States her pain increases at night. Reminded patient that she has higher strength options for pain management if she needs them. Wound cultures growing staph, Enterococcus, strep, and actinobacter. We will continue to follow cultures for sensitivities. Will order oral iron. Discussed with RN. Vitals/I&O Vitals/I&O: Vital Signs Date Time Temp Pulse Resp B/P (MAP) Pulse Ox O2 Delivery O2 Flow Rate FiO2 09/08/21 08:46 80 159/70 09/08/21 08:00 Room Air 09/08/21 07:00 97.8 16 97 97.8 I & O 09/07/21 09/07/21 09/08/21 15:00 23:00 07:00 Intake Total 100 ml 220 ml 200 ml Output Total 900 ml 950 ml Balance 100 ml -680 ml -750 ml Physical Exam Physical Exam: GENERAL: Alert, oriented female, not in distress. VITAL SIGNS: Stable. HEENT: Both pupils are round and reacting. No conjunctival lesion. No lesion in the mouth. NECK: Supple, no JVP, no lymphadenopathy. LUNGS: Clear. HEART: S1, S2, regular. ABDOMEN: Soft, nontender, no organomegaly. EXTREMITIES: Right stump scar healed Left foot dressing taken down. Left great toe base healthy, clean, . Sutures over left lower extremity intact dry, no erythema or drainage SKIN: No generalized rash NEUROLOGIC: The patient is neurologically alert, awake, and appropriate. No focal neurologic deficit. General: Alert, Oriented X3, Cooperative Heart: Regular rate, Normal S1, Normal S2 Lungs: Clear Abdomen: Normal bowel sounds, Soft, No tenderness Extremities: Other (Left medial leg incisions intact. No erythema or fluctuance. Minimal edema. Wound VAC in place over left foot and toe amputation site. Good biphasic Doppler signal in left posterior tibial artery) Skin: Other (Lower extremity wounds on the left are clean, dry, and intact) Labs Labs: Laboratory Tests Test 09/07/21 16:51 09/07/21 20:53 09/08/21 06:00 09/08/21 07:42 Glucose (Fingerstick) 104 mg/dL (70-99) 283 mg/dL (70-99) 137 mg/dL (70-99) White Blood Count 12.7 x10^3/uL (4.0-11.0) Red Blood Count 3.57 x10^6/uL (3.50-5.40) Hemoglobin 10.2 g/dL (12.0-15.5) Hematocrit 30.8 % (36.0-47.0) Mean Corpuscular Volume 86 fL (79-100) Mean Corpuscular Hemoglobin 29 pg (25-35) Mean Corpuscular Hemoglobin Concent 33 g/dL (31-37) Red Cell Distribution Width 16.1 % (11.5-14.5) Platelet Count 498 x10^3/uL (140-400) Neutrophils (%) (Auto) 72 % (31-73) Lymphocytes (%) (Auto) 18 % (24-48) Monocytes (%) (Auto) 8 % (0-9) Eosinophils (%) (Auto) 2 % (0-3) Basophils (%) (Auto) 0 % (0-3) Neutrophils # (Auto) 9.2 x10^3/uL (1.8-7.7) Lymphocytes # (Auto) 2.3 x10^3/uL (1.0-4.8) Monocytes # (Auto) 1.0 x10^3/uL (0.0-1.1) Eosinophils # (Auto) 0.2 x10^3/uL (0.0-0.7) Basophils # (Auto) 0.0 x10^3/uL (0.0-0.2) Test 09/08/21 11:08 Glucose (Fingerstick) 156 mg/dL (70-99) Comment Review of Relevant I have reviewed the following items ted (where applicable) has been applied. Medications: Current Medications Medications (Trade) Dose Ordered Sig/Primitivo Route PRN Reason Start Time Stop Time Status Last Admin Dose Admin Daptomycin 350 mg/ Sodium Chloride 50 ml @ 100 mls/hr Q24H IV 09/07/21 14:00 09/07/21 15:06 Minocycline HCl (Minocin) 100 mg BID PO 09/07/21 21:00 09/07/21 20:16 Piperacillin Sod/ Tazobactam Sod 2.25 gm/Sodium Chloride 50 ml @ 100 mls/hr Q6HRS IV 09/07/21 14:15 09/08/21 05:41 Justifications for Admission Other Justification STEFANI MIGUEL MD September 08, 2021 12:08
[2021-09-08] MEDS ORDERED: IV NORMAL SALINE 500ML BAG 500 ML IV ONE (12:15)
[2021-09-08] MEDS ORDERED: LIDOCAINE WITH 8.4% SOD BICARB 3 ML DISP.SYRIN. ONE (13:20)
[2021-09-08] MEDS ORDERED: LIDOCAINE WITH 8.4% SOD BICARB 3 ML DISP.SYRIN. INJ ONE (13:45)
[2021-09-08] MEDS: DAPTOmycin (GENERIC) IVPB 350 MG in IV NORMAL SALINE 50ML 50 ML IV SCH (14:41)
[2021-09-08] MEDS: NICOTINE 21MG PATCH. TD PRN (14:42)
[2021-09-08 15:00] VITALS: BP 166/72
--- NOTE | 2021-09-08 15:20 | PDOC ---
Infectious Disease Note Subjective: Subjective Patient feels a little better still has nasuea and vomitting has diarrhea Denies any fever Denies any shortness of breath or cough Denies any abdominal pain Postop site pain is under control Vital Signs: Vital Signs Vital Signs Date Time Temp Pulse Resp B/P (MAP) Pulse Ox O2 Delivery O2 Flow Rate FiO2 09/08/21 08:46 80 159/70 09/08/21 08:00 Room Air 09/08/21 07:00 97.8 16 97 97.8 Physical Exam: PHYSICAL EXAM GENERAL: Alert, oriented female, not in distress. VITAL SIGNS: Stable. HEENT: Both pupils are round and reacting. No conjunctival lesion. No lesion in the mouth. NECK: Supple, no JVP, no lymphadenopathy. LUNGS: Clear. HEART: S1, S2, regular. ABDOMEN: Soft, nontender, no organomegaly. EXTREMITIES: Right stump scar healed Left foot dressing taken down. Left great toe base healthy, clean, . Sutures over left lower extremity intact dry, no erythema or drainage SKIN: No generalized rash NEUROLOGIC: The patient is neurologically alert, awake, and appropriate. No focal neurologic deficit. Medications: Inpatient Meds: Medications reviewed. Labs: Lab Laboratory Tests Test 09/07/21 16:51 09/07/21 20:53 09/08/21 05:50 09/08/21 06:00 Glucose (Fingerstick) 104 mg/dL (70-99) 283 mg/dL (70-99) Clostridium difficile Toxin (PCR) Negative (NEGATIVE) White Blood Count 12.7 x10^3/uL (4.0-11.0) Red Blood Count 3.57 x10^6/uL (3.50-5.40) Hemoglobin 10.2 g/dL (12.0-15.5) Hematocrit 30.8 % (36.0-47.0) Mean Corpuscular Volume 86 fL (79-100) Mean Corpuscular Hemoglobin 29 pg (25-35) Mean Corpuscular Hemoglobin Concent 33 g/dL (31-37) Red Cell Distribution Width 16.1 % (11.5-14.5) Platelet Count 498 x10^3/uL (140-400) Neutrophils (%) (Auto) 72 % (31-73) Lymphocytes (%) (Auto) 18 % (24-48) Monocytes (%) (Auto) 8 % (0-9) Eosinophils (%) (Auto) 2 % (0-3) Basophils (%) (Auto) 0 % (0-3) Neutrophils # (Auto) 9.2 x10^3/uL (1.8-7.7) Lymphocytes # (Auto) 2.3 x10^3/uL (1.0-4.8) Monocytes # (Auto) 1.0 x10^3/uL (0.0-1.1) Eosinophils # (Auto) 0.2 x10^3/uL (0.0-0.7) Basophils # (Auto) 0.0 x10^3/uL (0.0-0.2) Test 09/08/21 07:42 09/08/21 11:08 Glucose (Fingerstick) 137 mg/dL (70-99) 156 mg/dL (70-99) Micro RUN DATE: 09/06/21 [facility] *LIVE* PAGE 1 RUN TIME: 943 Specimen Inquiry PATIENT: BETH KEYS ACCT: [id number] LOC: [address] [place] [address] U: [id number] AGE/SX: 61/F ROOM: 67 RE08/31/[address]: STEFANI MIGUEL MD : 1960 BED: 1 DIS: STATUS: ADM IN TLOC: -- SPEC #: [id number] EMILEE: 08/31/21 STATUS: COMP REQ #: [id number] RECD: 09/01/21 [facility] DR: WILMER MCALLISTER MD SOURCE: FOOT ENTR: 09/01/[address] [facility] DR: ELOISA CHATMAN MD SPDESC: MARIO OLIVO MD ORDERED: DESEAN/AEROBIC CUL COMMENTS: LEFT TOE ABSCESS Procedure Result GRAM STAIN-AER DESEAN Final PMNS (WBCS): MANY SQUAMOUS EPI CELL: NONE SEEN GRAM NEGATIVE RODS: MODERATE GRAM POS RODS: FEW GRAM POS COCCI: MANY CULTURE ANAEROBIC/AEROBIC Final MIXED AEROBIC AND ANAEROBIC KATHLEEN on 09/05/21 at 1432. INCLUDING: MANY ENTEROCOCCUS FAECALIS MANY EIKENELLA CORRODENS FEW STAPHYLOCOCCUS AUREUS (MRSA) FEW ACINETOBACTER PITTII MANY STREPTOCOCCUS ANGINOSUS MODERATE PREVOTELLA MELANINOGENICA Testing performed by [address] [address] neurosurgery research director: Lanny Wong MD Organism 1 ENTEROCOCCUS FAECALIS Organism 2 EIKENELLA CORRODENS Organism 3 STAPHYLOCOCCUS AUREUS (MRSA) Organism 4 ACINETOBACTER PITTII Organism 5 STREPTOCOCCUS ANGINOSUS Organism 6 PREVOTELLA MELANINOGENICA Organism 7 PREVOTELLA MELANINOGENICA#2 3. STAPHYLOCOCCUS AUREUS (MRSA) Target Route Dose RX AB Cost M.I.C. IQ ------ ----- ------ -- ------ --------- ------ AZITHROMYCIN R >4 DAPTOMYCIN S <=0.5 VANCOMYCIN S 1 CEFTAROLINE S <=0.5 RUN DATE: 09/06/21 [facility] *LIVE* PAGE 2 RUN TIME: 0944 Specimen Inquiry SPEC: [id number] PATIENT: BETH KEYS [id number] (Continued) Procedure Result CONTINUED ON NEXT PAGE -- RUN DATE: 09/06/21 [facility] *LIVE* PAGE 3 RUN TIME: 0944 Specimen Inquiry SPEC: [id number] PATIENT: BETH KEYS [id number] (Continued) Procedure Result CULTURE ANAEROBIC/AEROBIC Final (continued) 3. STAPHYLOCOCCUS AUREUS (MRSA) (continued) Target Route Dose RX AB Cost M.I.C. IQ ------ ----- ------ -- ------ --------- ------ IND CLINDAMYCIN POS >4/0.5 TRIMETH/SULFA S <=0.5/9.5 LEVOFLOXACIN R >4 * CLINDAMYCIN R <=0.25 LINEZOLID S 4 ERYTHROMYCIN R >4 PENICILLIN R >2 TETRACYCLINE S <=4 RIFAMPIN S <=1 OXACILLIN R >2 GENTAMICIN S <=4 Objective: Assessment: 1. Left big toe gangrene, status post open ray amputation.Polymicrobial organisms as above 2. Left peripheral arterial disease, status post left leg bypass. 3. Diabetes mellitus. 4. Hypertension. 5. Gastroesophageal reflux disease. Nausea and vomiting Leukocytosis could have a reactive component from nausea and vomiting yesterday Cultures positive for MANY STAPHYLOCOCCUS AUREUS MANY ENTEROCOCCUS FAECALIS MANY STREPTOCOCCUS ANGINOSUS RARE ACINETOBACTER PITTII MODERATE EIKENELLA CORRODENS MANY PREVOTELLA MELANINOGENICA Diarrhea Plan: Plan of Care Continue daptomycin, Zosyn and minocycline Micro lab did not report susceptibilities for all of the above microorganisms except for MRSA Leukocytosis improving When ready for discharge transition Zosyn to Invanz. Continue daptomycin and minocycline Local wound care as directed Offload C. difficile PCR negative Continue supportive care Maintain aspiration precautions Follow-up in ID clinic in 2 weeks phone [phone] ELOISA CHATMAN MD September 08, 2021 15:20
--- NOTE | 2021-09-08 16:29 | NUR ---
SS following up with discharge planning. SS reviewed pt chart and discussed with pt RN. Pt is currently on room air. COVID19 negative. Pt on IV Daptomycin and IV Zosyn. PT/OT recommended acute rehabilitation. Pt accepted at [facility], ; fax [phone]. Insurance authorization received. Per physician not ready today. Clinical updates phoned and faxed to [facility]. SS will continue to follow for discharge planning.
--- NOTE | 2021-09-08 18:19 | NUR ---
Wound care Plans in place for discharge tomorrow. Vac dressing is CDI, will let it remain in place until tomorrow as dressing changes are painful.
[2021-09-08 19:17] VITALS: BP 163/65
[2021-09-08] MEDS: traZODone 50 MG TABLET. PO SCH (20:03)
[2021-09-08] MEDS: INSULIN GLARGINE SYRINGE. SQ SCH (20:52)
[2021-09-08 22:41] VITALS: BP 121/58
[2021-09-09 03:26] VITALS: BP 168/76
[2021-09-09] MEDS: HEPARIN for SUB-Q USE 5,000 UNIT/ML VIAL. SQ SCH (05:04)
[2021-09-09] MEDS: PIPERACILLIN/TAZOBACTAM 2.25 GM in IV NORMAL SALINE 50ML 50 ML IV SCH ×2 (05:05→11:51)
[2021-09-09 06:48] LABS: BASO % 1 % (0-3); EOS # 0.2 x10^3/uL (0.0-0.7); EOS % 2 % (0-3); HEMATOCRIT 30.1 % (36.0-47.0); HEMOGLOBIN 10.2 g/dL (12.0-15.5); LYMPH # 2.1 x10^3/uL (1.0-4.8); LYMPH % 20 % (24-48); MEAN CORPUSCULAR HEMOGLOBIN 29 pg (25-35); MEAN CORPUSCULAR HGB CONC 34 g/dL (31-37); MEAN CORPUSCULAR VOLUME 86 fL (79-100); MONO # 0.8 x10^3/uL (0.0-1.1); MONO % 7 % (0-9); NEUT # 7.5 x10^3/uL (1.8-7.7); NEUT % 70 % (31-73); PLATELET COUNT 432 x10^3/uL (140-400); RED CELL DISTRIBUTION WIDTH 16.5 % (11.5-14.5); WHITE BLOOD COUNT 10.7 x10^3/uL (4.0-11.0)
[2021-09-09 07:00] VITALS: BP 161/69
[2021-09-09 07:00] LABS: CALCIUM 8.1 mg/dL (8.5-10.1); CREATININE 1.3 mg/dL (0.6-1.0); GFR 41.8; POTASSIUM 3.4 mmol/L (3.5-5.1)
[2021-09-09] MEDS: GABAPENTIN 300 MG CAPSULE. PO SCH (07:57)
[2021-09-09] MEDS: CLOPIDOGREL BISULFATE 75 MG TABLET PO SCH (07:57)
[2021-09-09] MEDS: DULoxetine HCL 30 MG CAPSULE.DR PO SCH (07:57)
[2021-09-09] MEDS: PANTOPRAZOLE 40 MG TABLET.DR. PO SCH (07:57)
[2021-09-09] MEDS: MINOCYCLINE 100 MG CAPSULE PO SCH (07:57)
[2021-09-09] MEDS: FERROUS SULFATE 325 MG TABLET. PO SCH (07:57)
[2021-09-09] MEDS: LACTOBACILLUS RHAMNOSUS GG 1 CAPSULE. PO SCH (07:58)
[2021-09-09] MEDS: LISINOPRIL 20 MG TABLET PO SCH (07:58)
[2021-09-09] MEDS: INSULIN LISPRO 300 UNITS/3 ML VIAL. SQ SCH ×2 (07:58→11:51)
[2021-09-09] MEDS: LINAGLIPTIN 5 MG TABLET PO SCH (07:58)
[2021-09-09] MEDS: DOCUSATE SODIUM 100 MG CAPSULE. PO SCH (07:59)
[2021-09-09] MEDS: POLYETHYLENE GLYCOL 3350 17 GM PACKET. PO SCH (07:59)
--- NOTE | 2021-09-09 08:26 | RAD ---
Date: Exam: Fluoroscopic and ultrasound guided peripheral central venous catheter placement. Indication: Consent: The procedure was explained in its entirety to the patient or the patients designated repres entative by a member of the treatment team, including a discussion of the risks, benefits and commonl y accepted alternatives to the procedure, as well as the expected consequences of no therapy whatsoev er. Discussion of the risks included, but was not limited to, those that are most frequent and thos e that are rare but possibly severe or life-threatening, as well as the possibility of unforeseen com plications. Discussion: A timeout procedure was performed. The patient was prepped and draped using maximum sterile techniq ue, including the use of: Current guideline approved cutaneous antisepsis, a large sterile sheet to e stablish a sterile field. Additionally the reciprocating drill operator wore a hat, mask, sterile gloves, a sterile gown during the procedure as well as practiced acceptable hand hygiene prior to placing the line. 1% lidoc klairssa was administered for local anesthesia. Ultrasound evaluation demonstrates a patent right basilic vein. [facility] The selected vein was accessed using micropuncture technique. A guidewire was advanced centrally. The PICC line was cut to length, and advanced through a peel-away sheath such that it's tip resides at the cavoatrial junction. The peel-away sheath a sheath was removed. The catheter was s ecured in place. The catheter was found to flush and aspirate normally.. Sterile dressings were appli ed. No immediate complications were identified. Fluoroscopy time: 0.4 minutes Dose area product: 1 Gycm2 Impression: Successful placement of a right upper extremity PICC line Electronically signed by: Cesar Fernandes MD (09/09/2021 8:23 AM) [id number]
[2021-09-09] MEDS: ELECTROLYTE (NON-ICU) PROTOCOL. MC SCH (09:00)
[2021-09-09] MEDS ORDERED: POTASSIUM CHLORIDE 20 MEQ TABLET.ER. PO ONE (10:00)
--- NOTE | 2021-09-09 10:39 | PDOC ---
Provider Note Date of Service: DATE: 09/09/21 TIME: 10:37 Provider Note Provider Note Vascular S: Patient resting comfortably in bed, she is without complaints. Patient seen with Dr. Cabrera O: Awake and alert HRR Non-labored respirations Doppler signal strong in PT and weak in DP Incision left groin with small area of dehiscence, medial thigh and calf incisions all dry and intact Wound vac in place and functioning first toe amputation site A/P: POD #9 Left common femoral artery endarterectomy, Left common femoral artery to tibioperoneal artery bypass using great saphenous vein in the non- reversed fashion Left first toe open ray amputation including resection of the metatarsal head Patent bypass, incisions healing nicely Continue vac therapy, abx per ID Continue non-weight bearing with slide board until toe amputation site has healed Awaiting transfer Justicifation of Admission Dx: Justifications for Admission: Justification of Admission Dx: Yes ANDRAE PINZON SCHOLARSHIP COUNSELOR September 09, 2021 10:39
[2021-09-09 11:00] VITALS: BP 116/59
--- NOTE | 2021-09-09 11:30 | NUR ---
Wound Care Wound Type/Assessment: Patient seen for wound care. Patient discharging today. Pt s/p open amputation of L great toe. Pt known to wound clinic. Wound cleansed, assessed, pictured and measured. Wound base is moist and pale pink with a tunnel at 12:00 and exposed bone. Wound margins well defined and intact. Patient also has incontinence associated dermatitis to bilateral buttocks and coccyx. Pt stated she has had some loose stools at times, this has caused her skin to breakdown. This area also cleansed, assessed, measured, and pictured. No other wounds noted. Treatment Recommendations/Plan: Continue NPWT at 125mmHg continuous suction when patient transfers to facility. change on MWF. For discharge wound redressed with Hydrofera Blue and covered with foam dressing and wrapped with kerlix. coccyx/buttocks dressed with calazime cream and brief removed to provide less layers for healing. Education provided: Education provided r/t pressure ulcer prevention, wound healing, and diabetes management. Pt voices understanding. Offloading surface/device: Pt is independent with mobility, but should only use heel touching to left foot and transfers only at this time. Recommended Referrals/Tests: NA Discharge Recommendations for dressings: Will need wound vac orders when transferring to facility. Bed lowered and call light in reach. RN at bedside. During this assessment two pills which appeared to be potassium tablets found in patient's room. RN notified and given the tablets to discard.
--- NOTE | 2021-09-09 11:31 | PDOC ---
[employer] PROGRESS NOTE Date of Service DOS: DATE: 09/09/21 TIME: 11:30 Chief Complaint Chief Complaint S/P femoral endarterectomy S/P left common femoral artery to tibial peroneal artery bypass using greater saphenous vein S/P left leg great saphenous vein harvest S/P left first toe open ray amputation including resection of the metatarsal head MRSA wound infection PVD DM2 GERD History of Present Illness History of Present Illness 09/09: Patient seen and evaluated. She denies any abdominal pain today. WBC 10.7, C. difficile negative. She is stable to discharge to [facility] today. Had PICC line placed yesterday for continued IV antibiotics. Greater than 30 minutes spent managing discharge of this patient. 09/08: Afebrile. Denies abdominal pain. Does admit to some diarrhea today; sample sent for C. difficile PCR. Improving leukocytosis, WBC 12.7 today. Appears clinically dehydrated. IV fluids. Order placed for PICC line. If she continues to improve she may discharge to [facility] tomorrow. Discussed with RN. 09/07: Afebrile. Had bowel movement yesterday, denies any abdominal pain. Some slight improvement in leukocytosis. Wound cultures polymicrobial, including MRSA. Continue tigecycline, per ID. She has been accepted at [facility], pending insurance approval. 09/06: Afebrile. Patient is approved for [facility], pending insurance approval. Worsening leukocytosis noted. Patient has no complaints today. Will continue IV antibiotics, per ID. This may need to be changed due to cost. 09/05: Patient seen resting comfortably in bed. Wound VAC in place. She continues on tigecycline for left big toe gangrene, s/p open ray amputation with wound cultures polymicrobial. She went to discharge to SNU. Patient adamant about not wanting long-term placement. Denies nausea or vomiting. 09/04: Patient seen and evaluated. No complaints, states she feels tired. Left lower extremity pain controlled with medications. Blood pressure elevated this morning; will add IV palpation medications. Continue IV antibiotics. She has been accepted at [facility], pending insurance approval. Of note, facility cannot provide IV tigecycline. . 09/03: Patient seen and evaluated. She reports pain in the left lower extremity, 12/15. Vascular surgery following. Continue antibiotics, per ID. 09/02: Patient seen and evaluated bedside. S/P femoral endarterectomy and left first toe amputation. Wound VAC in place to left foot. States her pain increases at night. Reminded patient that she has higher strength options for pain management if she needs them. Wound cultures growing staph, Enterococcus, strep, and actinobacter. We will continue to follow cultures for sensitivities. Will order oral iron. Discussed with RN. Vitals/I&O Vitals/I&O: Vital Signs Date Time Temp Pulse Resp B/P (MAP) Pulse Ox O2 Delivery O2 Flow Rate FiO2 09/09/21 11:00 98.8 90 116/59 (78) 100 Room Air 98.8 09/09/21 08:00 5.0 09/09/21 03:26 16 I & O 09/08/21 09/08/21 09/09/21 15:00 23:00 07:00 Intake Total 50 ml 240 ml 100 ml Output Total 1250 ml 700 ml Balance 50 ml -1010 ml -600 ml Physical Exam Physical Exam: GENERAL: Alert, oriented female, not in distress. VITAL SIGNS: Stable. HEENT: Both pupils are round and reacting. No conjunctival lesion. No lesion in the mouth. NECK: Supple, no JVP, no lymphadenopathy. LUNGS: Clear. HEART: S1, S2, regular. ABDOMEN: Soft, nontender, no organomegaly. EXTREMITIES: Right stump scar healed Left foot dressing taken down. Left great toe base healthy, clean, . Sutures over left lower extremity intact dry, no erythema or drainage SKIN: No generalized rash NEUROLOGIC: The patient is neurologically alert, awake, and appropriate. No focal neurologic deficit. General: Alert, Oriented X3, Cooperative Heart: Regular rate, Normal S1, Normal S2 Lungs: Clear Abdomen: Normal bowel sounds, Soft, No tenderness Extremities: Other (Left medial leg incisions intact. No erythema or fluctu ance. Minimal edema. Wound VAC in place over left foot and toe amputation site. Good biphasic Doppler signal in left posterior tibial artery) Skin: Other (Lower extremity wounds on the left are clean, dry, and intact) Labs Labs: Laboratory Tests Test 09/08/21 16:27 09/08/21 20:39 09/09/21 06:30 09/09/21 07:50 Glucose (Fingerstick) 138 mg/dL (70-99) 209 mg/dL (70-99) 81 mg/dL (70-99) White Blood Count 10.7 x10^3/uL (4.0-11.0) Red Blood Count 3.50 x10^6/uL (3.50-5.40) Hemoglobin 10.2 g/dL (12.0-15.5) Hematocrit 30.1 % (36.0-47.0) Mean Corpuscular Volume 86 fL (79-100) Mean Corpuscular Hemoglobin 29 pg (25-35) Mean Corpuscular Hemoglobin Concent 34 g/dL (31-37) Red Cell Distribution Width 16.5 % (11.5-14.5) Platelet Count 432 x10^3/uL (140-400) Neutrophils (%) (Auto) 70 % (31-73) Lymphocytes (%) (Auto) 20 % (24-48) Monocytes (%) (Auto) 7 % (0-9) Eosinophils (%) (Auto) 2 % (0-3) Basophils (%) (Auto) 1 % (0-3) Neutrophils # (Auto) 7.5 x10^3/uL (1.8-7.7) Lymphocytes # (Auto) 2.1 x10^3/uL (1.0-4.8) Monocytes # (Auto) 0.8 x10^3/uL (0.0-1.1) Eosinophils # (Auto) 0.2 x10^3/uL (0.0-0.7) Basophils # (Auto) 0.0 x10^3/uL (0.0-0.2) Sodium Level 141 mmol/L (136-145) Potassium Level 3.4 mmol/L (3.5-5.1) Chloride Level 107 mmol/L (98-107) Carbon Dioxide Level 30 mmol/L (21-32) Anion Gap 4 (6-14) Blood Urea Nitrogen 13 mg/dL (7-20) Creatinine 1.3 mg/dL (0.6-1.0) Estimated GFR (Cockcroft-Gault) 41.8 Glucose Level 89 mg/dL (70-99) Calcium Level 8.1 mg/dL (8.5-10.1) Comment Review of Relevant I have reviewed the following items etd (where applicable) has been applied. Medications: Current Medications Medications (Trade) Dose Ordered Sig/Primitivo Route PRN Reason Start Time Stop Time Status Last Admin Dose Admin Lidocaine HCl (Buffered Lidocaine 1%) 6 ml 1X ONCE INJ 09/08/21 13:45 09/08/21 13:46 DC 09/08/21 14:09 Potassium Chloride (Klor-Con) 40 meq 1X ONCE PO 09/09/21 10:00 09/09/21 10:01 DC 09/09/21 09:47 Justifications for Admission Other Justification STEFANI MIGUEL MD September 09, 2021 11:31
--- NOTE | 2021-09-09 11:34 | NUR ---
SS following up with discharge planning. SS reviewed pt chart and discussed with pt RN. Pt is currently on room air. COVID19 negative. Pt on IV Daptomycin and IV Zosyn. PICC in place. PT/OT recommended acute rehabilitation. Discharge orders received for [facility], ; fax [phone]. Insurance authorization received. Discharge orders sent to facility. Pt will discharge today and go to [facility] at 1300. [facility] to provide transportation. Pt and pt's RN notified.
--- NOTE | 2021-09-09 11:40 | PDOC3 ---
Discharge Summary Visit Information Date of Admission: Aug 31, 2021 Date of Discharge: September 09, 2021 Brief Hospital Course Allergies Allergies Coded Allergies Type Severity Reaction Last Updated Verified iodine Allergy Intermediate Rash 08/31/21 Yes Vital Signs Vital Signs Date Time Temp Pulse Resp B/P (MAP) Pulse Ox O2 Delivery O2 Flow Rate FiO2 09/09/21 11:00 98.8 90 116/59 (78) 100 Room Air 98.8 09/09/21 08:00 5.0 09/09/21 03:26 16 Lab Results Laboratory Tests Test 09/07/21 11:47 09/07/21 16:51 09/07/21 20:53 09/08/21 05:50 Glucose (Fingerstick) 122 mg/dL (70-99) 104 mg/dL (70-99) 283 mg/dL (70-99) Clostridium difficile Toxin (PCR) Negative (NEGATIVE) Test 09/08/21 06:00 09/08/21 07:42 09/08/21 11:08 09/08/21 16:27 White Blood Count 12.7 x10^3/uL (4.0-11.0) Red Blood Count 3.57 x10^6/uL (3.50-5.40) Hemoglobin 10.2 g/dL (12.0-15.5) Hematocrit 30.8 % (36.0-47.0) Mean Corpuscular Volume 86 fL (79-100) Mean Corpuscular Hemoglobin 29 pg (25-35) Mean Corpuscular Hemoglobin Concent 33 g/dL (31-37) Red Cell Distribution Width 16.1 % (11.5-14.5) Platelet Count 498 x10^3/uL (140-400) Neutrophils (%) (Auto) 72 % (31-73) Lymphocytes (%) (Auto) 18 % (24-48) Monocytes (%) (Auto) 8 % (0-9) Eosinophils (%) (Auto) 2 % (0-3) Basophils (%) (Auto) 0 % (0-3) Neutrophils # (Auto) 9.2 x10^3/uL (1.8-7.7) Lymphocytes # (Auto) 2.3 x10^3/uL (1.0-4.8) Monocytes # (Auto) 1.0 x10^3/uL (0.0-1.1) Eosinophils # (Auto) 0.2 x10^3/uL (0.0-0.7) Basophils # (Auto) 0.0 x10^3/uL (0.0-0.2) Glucose (Fingerstick) 137 mg/dL (70-99) 156 mg/dL (70-99) 138 mg/dL (70-99) Test 09/08/21 20:39 09/09/21 06:30 09/09/21 07:50 Glucose (Fingerstick) 209 mg/dL (70-99) 81 mg/dL (70-99) White Blood Count 10.7 x10^3/uL (4.0-11.0) Red Blood Count 3.50 x10^6/uL (3.50-5.40) Hemoglobin 10.2 g/dL (12.0-15.5) Hematocrit 30.1 % (36.0-47.0) Mean Corpuscular Volume 86 fL (79-100) Mean Corpuscular Hemoglobin 29 pg (25-35) Mean Corpuscular Hemoglobin Concent 34 g/dL (31-37) Red Cell Distribution Width 16.5 % (11.5-14.5) Platelet Count 432 x10^3/uL (140-400) Neutrophils (%) (Auto) 70 % (31-73) Lymphocytes (%) (Auto) 20 % (24-48) Monocytes (%) (Auto) 7 % (0-9) Eosinophils (%) (Auto) 2 % (0-3) Basophils (%) (Auto) 1 % (0-3) Neutrophils # (Auto) 7.5 x10^3/uL (1.8-7.7) Lymphocytes # (Auto) 2.1 x10^3/uL (1.0-4.8) Monocytes # (Auto) 0.8 x10^3/uL (0.0-1.1) Eosinophils # (Auto) 0.2 x10^3/uL (0.0-0.7) Basophils # (Auto) 0.0 x10^3/uL (0.0-0.2) Sodium Level 141 mmol/L (136-145) Potassium Level 3.4 mmol/L (3.5-5.1) Chloride Level 107 mmol/L (98-107) Carbon Dioxide Level 30 mmol/L (21-32) Anion Gap 4 (6-14) Blood Urea Nitrogen 13 mg/dL (7-20) Creatinine 1.3 mg/dL (0.6-1.0) Estimated GFR (Cockcroft-Gault) 41.8 Glucose Level 89 mg/dL (70-99) Calcium Level 8.1 mg/dL (8.5-10.1) Laboratory Tests Test 09/08/21 16:27 09/08/21 20:39 09/09/21 06:30 09/09/21 07:50 Glucose (Fingerstick) 138 mg/dL (70-99) 209 mg/dL (70-99) 81 mg/dL (70-99) White Blood Count 10.7 x10^3/uL (4.0-11.0) Red Blood Count 3.50 x10^6/uL (3.50-5.40) Hemoglobin 10.2 g/dL (12.0-15.5) Hematocrit 30.1 % (36.0-47.0) Mean Corpuscular Volume 86 fL (79-100) Mean Corpuscular Hemoglobin 29 pg (25-35) Mean Corpuscular Hemoglobin Concent 34 g/dL (31-37) Red Cell Distribution Width 16.5 % (11.5-14.5) Platelet Count 432 x10^3/uL (140-400) Neutrophils (%) (Auto) 70 % (31-73) Lymphocytes (%) (Auto) 20 % (24-48) Monocytes (%) (Auto) 7 % (0-9) Eosinophils (%) (Auto) 2 % (0-3) Basophils (%) (Auto) 1 % (0-3) Neutrophils # (Auto) 7.5 x10^3/uL (1.8-7.7) Lymphocytes # (Auto) 2.1 x10^3/uL (1.0-4.8) Monocytes # (Auto) 0.8 x10^3/uL (0.0-1.1) Eosinophils # (Auto) 0.2 x10^3/uL (0.0-0.7) Basophils # (Auto) 0.0 x10^3/uL (0.0-0.2) Sodium Level 141 mmol/L (136-145) Potassium Level 3.4 mmol/L (3.5-5.1) Chloride Level 107 mmol/L (98-107) Carbon Dioxide Level 30 mmol/L (21-32) Anion Gap 4 (6-14) Blood Urea Nitrogen 13 mg/dL (7-20) Creatinine 1.3 mg/dL (0.6-1.0) Estimated GFR (Cockcroft-Gault) 41.8 Glucose Level 89 mg/dL (70-99) Calcium Level 8.1 mg/dL (8.5-10.1) Brief Hospital Course Ms. Michael is a 61 old female who presented with severe left leg peripheral artery disease with infected gangrene on the left first toe. She was seen by vascular surgery for a left common femoral artery endarterectomy, left common femoral artery to tibioperoneal artery bypass using great saphenous vein in the non-reversed fashion, left leg great saphenous vein harvest, left first toe open ray amputation including resection of the metatarsal head. Wound VAC was placed postoperatively. Wound cultures grew a polymicrobial infection, including MRSA. Consultation was placed to ID. She was treated with IV daptomycin, IV Zosyn, and oral minocycline. Her inpatient course was complicated by unexplained leukocytosis, abdominal pain, nausea, vomiting, and diarrhea. She was evaluated for C. difficile, but PCR was negative. When her leukocytosis resolved she was stable for discharge to [facility] rehab for continued IV antibiotics and wound care. Discharge Information Condition at Discharge: Stable Disposition/Orders: D/C to Another Facility Scheduled Amlodipine Besylate (Amlodipine Besylate) 10 Mg Tablet, 10 MG PO DAILY for PRESCRIBED, (Reported) Entered as Reported by: Kenia Hanson on 08/19/21 1006 Last Taken: Unknown Dose on 08/31/21 0500 Last Action: Continued on 08/31/211641 by TREVA JOHNSON Clopidogrel Bisulfate (Clopidogrel) 75 Mg Tablet, 75 MG PO DAILY for TO PREVENT BLOOD CLOTS, #30 Ref 0 (Reported) Entered as Reported by: Kenia Hanson on 08/19/21 1015 Last Taken: Unknown Dose on 08/31/21 0500 Last Action: Continued on 08/31/211641 by TREVA JOHNSON Duloxetine Hcl (Cymbalta) 30 Mg Capsule.dr, 30 MG PO DAILY for PRESCRIBED, (Reported) Entered as Reported by: Kenia Hanson on 08/19/21 1015 Last Taken: Unknown Dose on 08/30/21 Last Action: Continued on 08/31/211641 by TREVA JOHNSON Gabapentin (Gabapentin ) 300 Mg Capsule, 300 MG PO TID for NEUROGENIC PAIN, (Reported) Entered as Reported by: Kenia Hanson on 08/19/21 1006 Last Taken: Unknown Dose on 08/30/21 Last Action: Continued on 08/31/211641 by TREVA JOHNSON Lisinopril (Lisinopril) 40 Mg Tablet, 1 TAB PO DAILY for PRESCRIBED, #30 Ref 5 (Reported) Entered as Reported by: Kenia Hanson on 08/19/211014 Last Taken: Unknown Dose on 08/30/21 Last Action: Continued on 08/31/211641 by TREVA JOHNSON Metformin Hcl (Metformin Hcl Er) 500 Mg Tab.er.24h, 500 MG PO DAILYWBKFT for ANTI-DIABETIC, Ref 0 (Reported) Entered as Reported by: Kenia Hanson on 08/19/21 100 Last Taken: Unknown Dose on 08/30/21 Last Action: Last Taken Edited on 08/31/21 101 by KIARA RANGEL Pantoprazole Sodium (Protonix ) 40 Mg Tablet.dr, 40 MG PO DAILYAC for GERD, (Reported) Entered as Reported by: Kenia Hanson on 08/19/21 100 Last Taken: Unknown Dose on 08/31/21 0500 Last Action: Continued on 08/31/211641 by TREVA JOHNSON Sitagliptin Phosphate (Januvia) 100 Mg Tablet, 1 TAB PO DAILY for PRESCRIBED, #30 Ref 5 (Reported) Entered as Reported by: Kenia Hanson on 08/19/21 100 Last Taken: Unknown Dose on 08/30/21 Last Action: Converted on 08/31/211641 by TREVA JOHNSON Trazodone Hcl (Trazodone Hcl) 50 Mg Tablet, 50 MG PO HS for PRESCRIBED, (Reported) Entered as Reported by: Kenia Hanson on 08/19/21 1015 Last Taken: Unknown Dose on 08/30/21 Last Action: Continued on 08/31/212 by TREVA JOHNSON Justicifation of Admission Dx: Justifications for Admission: Justification of Admission Dx: Yes STEFANI MIGUEL MD September 09, 2021 11:40
--- NOTE | 2021-09-09 11:44 | SNU/HH DC ---
DISCHARGE ORDERS DISCHARGE INFORMATION: DISCHARGE DATE: September 09, 2021 CONDITION ON DISCHARGE: Stable CODE STATUS: Code Status: Full LONGTERM: SNF STAY <30 DAYS: Yes POST DISCHARGE ORDERS: ACTIVITY ORDERS: Resume previous activity, Activity as tolerated WEIGHT BEARING STATUS: As tolerated DIET AFTER DISCHARGE: ADA WOUND/INCISION CARE: Keep wound/cast CDI, Change dressing TREATMENT/EQUIPMENT ORDERS: ADAPTIVE EQUIPMENT NEEDED: Wheelchair Physical Therapy For: Evalulation/Treatment Occupational Therapy For: Evaluation/Treatment DISCHARGE MEDICATIONS: Home Meds Reported Medications Clopidogrel Bisulfate (CLOPIDOGREL) 75 Mg Tablet, 75 MG PO DAILY for TO PREVENT BLOOD CLOTS, #30 TAB 0 Refills 08/19/21 Trazodone Hcl (TRAZODONE HCL) 50 Mg Tablet, 50 MG PO HS for PRESCRIBED, TAB 08/19/21 Duloxetine Hcl (CYMBALTA) 30 Mg Capsule.dr, 30 MG PO DAILY for PRESCRIBED, CAP 08/19/21 Lisinopril (LISINOPRIL) 40 Mg Tablet, 1 TAB PO DAILY for PRESCRIBED, #30 TAB 5 Refills 08/19/21 Amlodipine Besylate (AMLODIPINE BESYLATE) 10 Mg Tablet, 10 MG PO DAILY for PRESCRIBED, TAB 08/19/21 Sitagliptin Phosphate (JANUVIA) 100 Mg Tablet, 1 TAB PO DAILY for PRESCRIBED, #30 TAB 5 Refills 08/19/21 Pantoprazole Sodium (PROTONIX ) 40 Mg Tablet.dr, 40 MG PO DAILYAC for GERD, TAB 08/19/21 Gabapentin (GABAPENTIN ) 300 Mg Capsule, 300 MG PO TID for NEUROGENIC PAIN, CAP 08/19/21 Metformin Hcl (METFORMIN HCL ER) 500 Mg Tab.er.24h, 500 MG PO DAILYWBKFT for ANTI-DIABETIC, TAB 0 Refills 08/19/21 STEFANI MIGUEL MD September 09, 2021 11:44
--- NOTE | 2021-09-09 12:20 | NUR ---
DISCHARGE REPORT REPORT CALLED TO JIMI NELSON AT [facility]. INFORMATION ON WOUNDS, PICC, AND IVABT GIVEN, WELL RELEVANT HISTORY AND ALLERGY INFORMATION. NO QUESTIONS WERE APPARENT AT THIS TIME, RETURN PHONE NUMBER GIVEN IN THE EVENT THAT ANY ARISE.
--- NOTE | 2021-09-09 12:59 | PDOC ---
Infectious Disease Note Subjective: Subjective Patient without complaints Denies any further episodes of nausea vomiting Postop site pain is under control Eager for discharge later today Vital Signs: Vital Signs Vital Signs Date Time Temp Pulse Resp B/P (MAP) Pulse Ox O2 Delivery O2 Flow Rate FiO2 09/09/21 11:00 98.8 90 116/59 (78) 100 Room Air 98.8 09/09/21 08:00 5.0 09/09/21 03:26 16 Physical Exam: PHYSICAL EXAM GENERAL: Alert, oriented female, not in distress. VITAL SIGNS: Stable. HEENT: Both pupils are round and reacting. No conjunctival lesion. No lesion in the mouth. NECK: Supple, no JVP, no lymphadenopathy. LUNGS: Clear. HEART: S1, S2, regular. ABDOMEN: Soft, nontender, no organomegaly. EXTREMITIES: Right stump scar healed Left foot dressing taken down. Left great toe base healthy, clean, . Sutures over left lower extremity intact dry, no erythema or drainage SKIN: No generalized rash NEUROLOGIC: The patient is neurologically alert, awake, and appropriate. No focal neurologic deficit. Medications: Inpatient Meds: Medications reviewed. Labs: Lab Laboratory Tests Test 09/08/21 16:27 09/08/21 20:39 09/09/21 06:30 09/09/21 07:50 Glucose (Fingerstick) 138 mg/dL (70-99) 209 mg/dL (70-99) 81 mg/dL (70-99) White Blood Count 10.7 x10^3/uL (4.0-11.0) Red Blood Count 3.50 x10^6/uL (3.50-5.40) Hemoglobin 10.2 g/dL (12.0-15.5) Hematocrit 30.1 % (36.0-47.0) Mean Corpuscular Volume 86 fL (79-100) Mean Corpuscular Hemoglobin 29 pg (25-35) Mean Corpuscular Hemoglobin Concent 34 g/dL (31-37) Red Cell Distribution Width 16.5 % (11.5-14.5) Platelet Count 432 x10^3/uL (140-400) Neutrophils (%) (Auto) 70 % (31-73) Lymphocytes (%) (Auto) 20 % (24-48) Monocytes (%) (Auto) 7 % (0-9) Eosinophils (%) (Auto) 2 % (0-3) Basophils (%) (Auto) 1 % (0-3) Neutrophils # (Auto) 7.5 x10^3/uL (1.8-7.7) Lymphocytes # (Auto) 2.1 x10^3/uL (1.0-4.8) Monocytes # (Auto) 0.8 x10^3/uL (0.0-1.1) Eosinophils # (Auto) 0.2 x10^3/uL (0.0-0.7) Basophils # (Auto) 0.0 x10^3/uL (0.0-0.2) Sodium Level 141 mmol/L (136-145) Potassium Level 3.4 mmol/L (3.5-5.1) Chloride Level 107 mmol/L (98-107) Carbon Dioxide Level 30 mmol/L (21-32) Anion Gap 4 (6-14) Blood Urea Nitrogen 13 mg/dL (7-20) Creatinine 1.3 mg/dL (0.6-1.0) Estimated GFR (Cockcroft-Gault) 41.8 Glucose Level 89 mg/dL (70-99) Calcium Level 8.1 mg/dL (8.5-10.1) Test 09/09/21 11:47 Glucose (Fingerstick) 120 mg/dL (70-99) Micro RUN DATE: 09/06/21 [facility] 21GRAMS LAB *LIVE* PAGE 1 RUN TIME: 943 Specimen Inquiry PATIENT: BETH KEYS ACCT: [id number] LOC: [address] [place] [address] U: [id number] AGE/SX: 61/F ROOM: 664 RE08/31/[address]: STEAFNI MIGUEL MD : 1960 BED: 1 DIS: STATUS: ADM IN TLOC: SPEC #: [id number] EMILEE: 08/31/21 STATUS: COMP REQ #: [id number] RECD: 09/01/[address]: WILMER MCALLISTER MD SOURCE: FOOT ENTR: 09/01/[address]: ELOISA CHATMAN MD SPDESC: LEFT MARIO GONZALEZ MD ORDERED: DESEAN/AEROBIC CUL COMMENTS: LEFT TOE ABSCESS Procedure Result GRAM STAIN-AER DESEAN Final PMNS (WBCS): MANY SQUAMOUS EPI CELL: NONE SEEN GRAM NEGATIVE RODS: MODERATE GRAM POS RODS: FEW GRAM POS COCCI: MANY CULTURE ANAEROBIC/AEROBIC Final MIXED AEROBIC AND ANAEROBIC KATHLEEN on 09/05/21 at 1432. INCLUDING: MANY ENTEROCOCCUS FAECALIS MANY EIKENELLA CORRODENS FEW STAPHYLOCOCCUS AUREUS (MRSA) FEW ACINETOBACTER PITTII MANY STREPTOCOCCUS ANGINOSUS MODERATE PREVOTELLA MELANINOGENICA Testing performed by [address] [address] director of philanthropy: Lanny Wong MD Organism 1 ENTEROCOCCUS FAECALIS Organism 2 EIKENELLA CORRODENS Organism 3 STAPHYLOCOCCUS AUREUS (MRSA) Organism 4 ACINETOBACTER PITTII Organism 5 STREPTOCOCCUS ANGINOSUS Organism 6 PREVOTELLA MELANINOGENICA Organism 7 PREVOTELLA MELANINOGENICA#2 3. STAPHYLOCOCCUS AUREUS (MRSA) Target Route Dose RX AB Cost M.I.C. IQ ------ ----- ------ -- ------ --------- ------ AZITHROMYCIN R >4 DAPTOMYCIN S <=0.5 VANCOMYCIN S 1 CEFTAROLINE S <=0.5 RUN DATE: 09/06/21 [facility] LAB *LIVE* PAGE 2 RUN TIME: 943 Specimen Inquiry SPEC: [id number] PATIENT: BETH KEYS [id number] (Continued) Procedure Result CONTINUED ON NEXT PAGE RUN DATE: 09/06/21 [facility] LAB *LIVE* PAGE 3 RUN TIME: 0944 Specimen Inquiry SPEC: [id number] PATIENT: LUDMILAJOSE DE JESUSDARWIN Helton [id number] (Continued) Procedure Result CULTURE ANAEROBIC/AEROBIC Final (continued) 3. STAPHYLOCOCCUS AUREUS (MRSA) (continued) Target Route Dose RX AB Cost M.I.C. IQ ------ ----- ------ -- ------ --------- ------ IND CLINDAMYCIN POS >4/0.5 TRIMETH/SULFA S <=0.5/9.5 LEVOFLOXACIN R >4 * CLINDAMYCIN R <=0.25 LINEZOLID S 4 ERYTHROMYCIN R >4 PENICILLIN R >2 TETRACYCLINE S <=4 RIFAMPIN S <=1 OXACILLIN R >2 GENTAMICIN S <=4 Objective: Assessment: 1. Left big toe gangrene, status post open ray amputation.Polymicrobial organisms as above 2. Left peripheral arterial disease, status post left leg bypass. 3. Diabetes mellitus. 4. Hypertension. 5. Gastroesophageal reflux disease. Nausea and vomiting Leukocytosis could have a reactive component from nausea and vomiting yesterday Cultures positive for MANY STAPHYLOCOCCUS AUREUS MANY ENTEROCOCCUS FAECALIS MANY STREPTOCOCCUS ANGINOSUS RARE ACINETOBACTER PITTII MODERATE EIKENELLA CORRODENS MANY PREVOTELLA MELANINOGENICA Diarrhea Plan: Plan of Care Transition Zosyn to Invanz before discharge today Continue daptomycin and minocycline Local wound care as directed Offload Prescription in chart Social service to assist with discharge antibiotic Follow-up in ID clinic in 2 weeks phone [phone] ELOISA CHATMAN MD September 09, 2021 12:58
--- NOTE | 2021-09-09 13:10 | NUR ---
DISCHARGE SPINE SURGEON FROM [facility] ARRIVES WITH WHEELCHAIR. PT TRANSFERRED FROM BED TO CHAIR WITH ASSIST X 2. ALL POSSESSIONS SENT WITH DAUGHTER AT TIME OF DISCHARGE. DC PACKET SENT WITH HOT SAW OPERATOR FOR FACILITY USE. REPORT CALLED PRIOR TO TRANSPORT
== END 2021-09-09 13:10 | DRG 241 ==
LOC: OPSVCIP 09:17 → 6 SOUTH 18:32
PROVIDERS: ADMIT Family Medicine; ATTEND Family Medicine
PROC: 0Y6N0Z9 Detachment at Left Foot, Partial 1st Ray, Open Approach (ICD-10-PCS; 2021-08-31)
PROC: 041L09S Bypass Left Femoral Artery to Lower Extremity Vein with Autologous Venous Tissue, Open Approach (ICD-10-PCS; 2021-08-31)
PROC: 06BQ0ZZ Excision of Left Saphenous Vein, Open Approach (ICD-10-PCS; 2021-08-31)
PROC: 04CL0ZZ Extirpation of Matter from Left Femoral Artery, Open Approach (ICD-10-PCS; principal; 2021-08-31 11:00)
PROC: 02HV33Z Insertion of Infusion Device into Superior Vena Cava, Percutaneous Approach (ICD-10-PCS; 2021-09-08)
PROC: B5181ZA Fluoroscopy of Superior Vena Cava using Low Osmolar Contrast, Guidance (ICD-10-PCS; 2021-09-08)
PROC: B548ZZA Ultrasonography of Superior Vena Cava, Guidance (ICD-10-PCS; 2021-09-08)
DX: E11.52 Type 2 diabetes mellitus with diabetic peripheral angiopathy with gangrene (principal); D72.829 Elevated white blood cell count, unspecified; E11.621 Type 2 diabetes mellitus with foot ulcer; E78.5 Hyperlipidemia, unspecified; E86.0 Dehydration; I10 Essential (primary) hypertension; K21.9 Gastro-esophageal reflux disease without esophagitis; L97.509 Non-pressure chronic ulcer of other part of unspecified foot with unspecified severity; S91.101A Unspecified open wound of right great toe without damage to nail, initial encounter; Z79.02 Long term (current) use of antithrombotics/antiplatelets; Z79.84 Long term (current) use of oral hypoglycemic drugs; Z79.899 Other long term (current) drug therapy; Z83.3 Family history of diabetes mellitus; Z86.14 Personal history of Methicillin resistant Staphylococcus aureus infection; Z89.511 Acquired absence of right leg below knee; Z20.822 Contact with and (suspected) exposure to COVID-19; Z88.8 Allergy status to other drugs, medicaments and biological substances
CPT/HCPCS: 36415; 36573; 80048; 82962; 83735; 84100; 85007; 85025; 85027; 85610; 85730; 87075; 87076; 87077; 87186; 87493; 88305; 88311; A4314; A4322; A4364; A4452; A4930; A6253; A6257; A6402; A6443; A6449; C1751; C1892; J0360; J0690; J0878; J1100; J1170; J1644; J1815; J2250; J2270; J2370; J2405; J2440; J2543; J2704; J2720; J3010; J3243; J3370; J3475; J3490; J7030; J7040; J7050; J7060; J7120; Q9967; 97110-GO; 97530-GO; 97530-GP; 97535-GO; G0378